=== PATIENT | female | born 1945 | race American Indian/Alaskan Native ===

== ENCOUNTER → 2016-09-14 | Outpatient (CLI) | payer MEDICARE | LOC: OD 12:09 | PROVIDERS: ATTEND Physician Assistant | DX: M25.552 Pain in left hip (principal); M25.511 Pain in right shoulder ==

== ENCOUNTER → 2016-09-17 | Outpatient (CLI) | payer MEDICARE, OTHER | LOC: RAD 14:09 | PROVIDERS: ATTEND Physician Assistant | DX: M96.1 Postlaminectomy syndrome, not elsewhere classified (principal) | CPT/HCPCS: 72131 ==

== ENCOUNTER 2016-11-05 02:46 | Inpatient (IN) | payer MEDICARE ==
[2016-11-05] MEDS ORDERED: NALOXONE HCL INJ 2 MG/2 ML DISP.SYRIN ONE ×5 (03:05→18:29)
[2016-11-05 03:38] LABS: ABSOLUTE BASOPHILS # (AUTO) 0.1 10^3/uL (0.0-0.2); ABSOLUTE LYMPHOCYTES (AUTO) 1.9 10^3/uL (0.5-4.7); ABSOLUTE MONOCYTES (AUTO) 1.4 10^3/uL (0.1-1.4); ABSOLUTE NEUT (AUTO) 10.6 10^3/uL (1.7-8.2); BASOPHILS % (AUTO) 0.7 % (0-2); EOSINOPHILS % (AUTO) 0.1 % (0-6); HEMATOCRIT 44.5 % (36.0-47.0); HEMOGLOBIN 14.1 g/dL (12.0-15.5); HGB HCT DIFFERENCE -2.2; LYMPHOCYTES % (AUTO) 13.5 % (13-45); MEAN CORPUSCULAR HEMOGLOBIN 27.9 pg (27.0-33.4); MEAN CORPUSCULAR HGB CONC 31.8 g/dL (32.0-36.0); MEAN CORPUSCULAR VOLUME 88 fl (80-97); MONOCYTES % (AUTO) 9.8 % (3-13); RED BLOOD COUNT 5.08 10^6/uL (3.72-5.28); RED CELL DISTRIBUTION WIDTH 14.5 % (11.5-14.0); SEGMENTED NEUTROPHILS % (AUTO) 75.9 % (42-78)
[2016-11-05 03:56] LABS: ALANINE AMINOTRANSFERASE 31 U/L (9-52); ALBUMIN 4.3 g/dL (3.5-5.0); ALKALINE PHOSPHATASE 87 U/L (38-126); ANION GAP 19 (5-19); ASPARTATE AMINO TRANSFERASE 104 U/L (14-36); BILIRUBIN,DIRECT 0.5 mg/dL (0.0-0.4); BILIRUBIN,TOTAL 0.6 mg/dL (0.2-1.3); BLOOD UREA NITROGEN 43 mg/dL (7-20); CALCIUM 9.1 mg/dL (8.4-10.2); CARBON DIOXIDE 25 mmol/L (22-30); CHLORIDE 98 mmol/L (98-107); CREATININE RESULT 2.46 mg/dL (0.52-1.25); GLUCOSE 116 mg/dL (75-110); LIPASE 185.1 U/L (23-300); POTASSIUM 3.6 mmol/L (3.6-5.0); SODIUM 141.8 mmol/L (137-145); TOTAL PROTEIN 7.4 g/dL (6.3-8.2)
[2016-11-05 04:21] LABS: AMORPHOUS SEDIMENT,URINE TRACE /HPF; APPEARANCE,URINE SLIGHTLY-CLOUDY; BILIRUBIN,URINE NEGATIVE (NEGATIVE); GLUCOSE, URINE NEGATIVE (NEGATIVE); KETONES,URINE NEGATIVE (NEGATIVE); LEUKOCYTE ESTERASE,URINE NEGATIVE (NEGATIVE); NITRITE,URINE NEGATIVE (NEGATIVE); PROTEIN,URINE 30 mg/dL (NEGATIVE); UROBILINOGEN,URINE NEGATIVE mg/dL (<2.0)
--- NOTE | 2016-11-05 05:35 | ER Document Report ---
ED General - General Time seen by provider: 02:50 Mode of Arrival: Medic Information source: Relative TRAVEL OUTSIDE OF THE [place] IN LAST 30 DAYS: No - HPI Onset: Other - see hpi note <PAPO WANG - Last Filed: 11/05/16 05:29> <COLLETTE HI - Last Filed: 11/10/16 21:12> - General Chief Complaint: Low Blood Pressure Stated Complaint: ABDOMINAL PAIN Notes: Patient is a 71-year-old female presenting to the emergency department for fecal incontinence, diarrhea, vomiting and somnolence. Patient states she ate dinner at 4 PM and has had diarrhea and vomiting right after. Patient is an pain management and patient's primary care physician is Dr. Garcia. Patient also complains of abdominal pain. Patient has her medications in the room. There is a bottle of Dilaudid that was filled 3 days ago; this bottle has 17 pills missing of 2 mg Dilaudid. This means that the patient has taken 34 mg of Dilaudid in the past 3 days. Patient is very somnolent and so the HPI is very limited. Patient is very hypotensive upon arrival. Patient is allergic to penicillin. (PAPO WANG) - Related Data Allergies/Adverse Reactions: Penicillins Allergy (Unknown, Verified 06/29/15 19:01) Rash Home Medications: Current Home Medications Clopidogrel Bisulfate [Plavix 75 mg Tablet] 75 mg PO DAILY 11/05/16 [History] Cyclobenzaprine HCl [Flexeril 5 mg Tablet] 5 mg PO QPM 11/05/16 [History] Furosemide [Lasix] 40 mg PO DAILY 11/05/16 [History] Gabapentin [Neurontin 300 mg Capsule] 300 mg PO TID 11/05/16 [History] Lisinopril/Hydrochlorothiazide [Zestoretic 10-12.5 mg Tablet] 1 tab PO DAILY [History] Omeprazole 20 mg PO DAILY 11/05/16 [History] Venlafaxine HCl ER [Effexor Xr 75 mg Cap.sr] 75 mg PO DAILY 11/05/16 [History] Venlafaxine HCl [Effexor Xr] 150 mg PO DAILY 11/05/16 [History] Past Medical History - General Information source: Patient - Social History Smoking Status: Current Every Day Smoker Chew tobacco use (# tins/day): No Frequency of alcohol use: None Drug Abuse: Prescription drugs Family History: None Patient has suicidal ideation: No Patient has homicidal ideation: No - Past Medical History Cardiac Medical History: Reports: Hx Hypertension Pulmonary Medical History: Reports: Hx COPD, Hx Pneumonia GI Medical History: Reports: Hx Gastroesophageal Reflux Disease Musculoskeltal Medical History: Reports Hx Arthritis Psychiatric Medical History: Reports: Hx Depression Past Surgical History: Reports: Hx Cholecystectomy, Hx Hysterectomy, Hx Neurologic Surgery - C-SPINE, Hx Orthopedic Surgery - L KNEE - Immunizations Hx Diphtheria, Pertussis, Tetanus Vaccination: Yes Hx Pneumococcal Vaccination: 08/09/11 <PAPO WANG - Last Filed: 11/05/16 05:29> Review of Systems - Review of Systems Constitutional: No symptoms reported EENT: No symptoms reported Cardiovascular: No symptoms reported Respiratory: No symptoms reported Gastrointestinal: See HPI, Abdominal pain, Diarrhea, Nausea, Vomiting Genitourinary: No symptoms reported Female Genitourinary: No symptoms reported Musculoskeletal: No symptoms reported Skin: No symptoms reported Hematologic/Lymphatic: No symptoms reported Neurological/Psychological: See HPI -: Yes All other systems reviewed and negative <PAPO WANG - Last Filed: 11/05/16 05:29> Physical Exam - Vital signs Interpretation: Hypotensive - General General appearance: Other - Patient is very somnolent In distress: Mild - HEENT Head: Normocephalic, Atraumatic Eyes: Normal Pupils: PERRL Mucous membranes: Dry - Respiratory Respiratory status: No respiratory distress Chest status: Nontender Breath sounds: Normal Chest palpation: Normal - Cardiovascular Rhythm: Regular Heart sounds: Normal auscultation Murmur: No - Abdominal Inspection: Normal Distension: No distension Bowel sounds: Normal Tenderness: Nontender Organomegaly: No organomegaly - Back Back: Normal, Nontender - Extremities General upper extremity: Normal inspection, Normal ROM, Normal strength General lower extremity: Normal inspection, Normal ROM, Normal strength - Neurological Neuro grossly intact: Yes Cognition: Normal Pep Coma Scale Eye Opening: Spontaneous Yolanda Coma Scale Verbal: Oriented Yolanda Coma Scale Motor: Obeys Commands Yolanda Coma Scale Total: 15 Speech: Normal - Psychological Associated symptoms: Normal affect, Normal mood - Skin Skin Temperature: Warm Skin Moisture: Dry <PAPO WANG - Last Filed: 11/05/16 05:29> <COLLETTE HI - Last Filed: 11/10/16 21:12> - Vital signs Vitals: Resp BP Pulse Ox 8 L 61/40 L 87 L 11/05/16 02:57 11/05/16 02:57 11/05/16 02:57 Course - Laboratory Result Diagrams: 11/05/16 03:12 11/05/16 03:12 <PAPO WANG - Last Filed: 11/05/16 05:29> - Laboratory Result Diagrams: 11/07/16 04:30 11/07/16 04:30 <COLLETTE HI - Last Filed: 11/10/16 21:12> - Re-evaluation Re-evalutation: 11/05/16 13:17 I personally performed the services described in the documentation, reviewed and edited the documentation which was dictated to my scribe in my presence, and it accurately records my words and actions. Patient says the emergency Department chief plain nausea vomiting diarrhea on examination the patient is sleepy pupils are pinpoint slightly short to arouse with decreased O2 sat. Gave her some Narcan she woke up immediately. They noticed that she is in pain management that she had taken several of her 2 mg Dilaudid tablets since they were filled 2-3 days ago. Blood pressure was initially elevated went down into the 90s treated her like sepsis bilateral pneumonia renal insufficiency pH is 7.2 blood cultures IV antibiotics patient is awake alert on Narcan drip blood pressure 98/elevated lactic acid Ford catheter placed additional liter of IV fluids. Spoke with the hospitalist who agreed to admit the patient to hospital on her service to the intensive care unit (COLLETTE HI) - Vital Signs Vital signs: Temp Pulse Resp BP Pulse Ox 98.7 F 88 20 113/73 95 11/07/16 09:55 11/07/16 09:55 11/07/16 09:55 11/07/16 09:55 11/07/16 09:55 - Laboratory Laboratory results interpreted by me: 11/05/16 11/05/16 11/05/16 03:12 03:12 03:12 WBC 14.0 H MCHC 31.8 L RDW 14.5 H Absolute Neutrophils 10.6 H Carbonic Acid ABG pH ABG pCO2 ABG pO2 ABG O2 Saturation BUN 43 H Creatinine 2.46 H Est GFR ( Amer) 23 L Est GFR (Non-Af Amer) 19 L Glucose 116 H Lactic Acid 2.8 H Direct Bilirubin 0.5 H AST 104 H Urine Protein Urine Blood 11/05/16 11/05/16 04:00 06:46 WBC MCHC RDW Absolute Neutrophils Carbonic Acid 1.73 H ABG pH 7.20 L* ABG pCO2 57.6 H ABG pO2 76.2 L ABG O2 Saturation 91.9 L BUN Creatinine Est GFR ( Amer) Est GFR (Non-Af Amer) Glucose Lactic Acid Direct Bilirubin AST Urine Protein 30 H Urine Blood LARGE H Critical Care Note - Critical Care Note Total time excluding time spent on procedures (mins): 60 <COLLETTE HI - Last Filed: 11/10/16 21:12> Discharge <PAPO WANG - Last Filed: 11/05/16 05:29> - Discharge Admitting Provider: Hospitalist Unit Admitted: ICU <COLLETTE HI - Last Filed: 11/10/16 21:12> - Discharge Clinical Impression: Sepsis due to pneumonia, altered mental status on Narcan drip, renal insufficiency Condition: Stable Disposition: HOME WITH HOME HEALTH SERVICES Scribe Documentation - Scribe Written by Scribe:: Papo Wang 11/05/16 5:35 acting as scribe for :: Gold <PAPO WANG - Last Filed: 11/05/16 05:29>
[2016-11-05 07:00] LABS: ARTERIAL BLOOD BASE EXCESS -6.8 mmol/L; ARTERIAL BLOOD O2 SATURATION 91.9 % (94-98)
[2016-11-05] MEDS ORDERED: NALOXONE HCL INJ 2 MG/2 ML DISP.SYRIN IV ONE ×4 (07:21→21:15)
[2016-11-05] MEDS ORDERED: NORMAL SALINE 1000 ML 1,000 ML IV ONE (08:36)
[2016-11-05] MEDS ORDERED: NORMAL SALINE 500 ML with NALOXONE HCL 2 MG IV PRN ×4 (08:49→14:03)
[2016-11-05] MEDS ORDERED: IPRATROPIUM/ALBUTEROL 0.5-2.5 MG/3 ML AMPUL NEB ONE (09:11)
[2016-11-05] MEDS ORDERED: CEFTRIAXONE INJ 1000 MG VIAL IV ONE (13:10)
[2016-11-05] MEDS ORDERED: VANCOMYCIN HCL INJ 1000 MG VIAL IV ONE (13:10)
[2016-11-05] MEDS ORDERED: ONDANSETRON 4 MG TAB.RAPDIS PO PRN (13:47)
[2016-11-05] MEDS ORDERED: ONDANSETRON HCL INJ/PF 4 MG/2 ML SDV IV PRN (13:47)
[2016-11-05] MEDS ORDERED: NORMAL SALINE 1000 ML 1,000 ML IV PRN (13:47)
[2016-11-05] MEDS ORDERED: ALBUTEROL SULFATE 0.083% NEB 2.5 MG/3 ML AMPUL NEB PRN (13:47)
--- NOTE | 2016-11-05 14:29 | PDOC H&P ---
History of Present Illness Admission Date/PCP: 11/05/16 13:31 DONNA JULIAN MD Patient complains of: Diarrhea History of Present Illness: JOSE ANGEL FINCH is a 71 year old female with a history of chronic pain and was restarted on Dilaudid 2 mg 2 days ago. The patient reports that over the last 2 days she's had worsening nausea vomiting and diarrhea. She denies any abdominal pain or fevers or chills. The patient has had difficulty tolerating any type of by mouth. She came in today as she was doing worse and did have some confusion. The patient was hypotensive when she presented and she was given Narcan and had improvement in her blood pressure. Patient since been started on Narcan drip and her blood pressure has been doing better. Because her symptoms a chest x-ray was obtained and does show her to have a right middle lobe probably aspiration pneumonia given her recent starting Dilaudid. Prior to being on Dilaudid she reports she was taking Percocet on daily basis. The patient also has had problems with some wheezing does have a history of COPD for which she is supposed to wear oxygen daily however she rarely wears her oxygen at home by her report. Patient denies having any chest pain. She does report having a cough. She has had diarrhea along with nausea and vomiting but denies having melena or bright red blood per rectum. Denies any hematemesis. She denies having any chest pain with this. She denies orthopnea or PND. She denies any recent antibiotic treatment. Past Medical History Cardiac Medical History: Reports: Hypertension Pulmonary Medical History: Reports: Chronic Obstructive Pulmonary Disease (COPD) , Pneumonia Endocrine Medical History: Reports: Hyperthyroidism Renal/ Medical History: Reports: Chronic Kidney Disease Malignancy Medical History: Reports: None GI Medical History: Reports: Gastroesophageal Reflux Disease Musculoskeltal Medical History: Reports: Arthritis Psychiatric Medical History: Reports: Depression Infectious Medical History: Reports: None Past Surgical History Past Surgical History: Reports: Cholecystectomy, Hysterectomy, Orthopedic Surgery - L KNEE Social History Information Source: Patient Lives with: Family Smoking Status: Current Every Day Smoker Frequency of Alcohol Use: None Hx Recreational Drug Use: No Drugs: None Hx Prescription Drug Abuse: No - Advance Directive Resuscitation Status: Do Not Resuscitate Surrogate healthcare decision maker:: Her son Cosmo Family History Family History: Mother in a motor vehicle accident. Her son has coronary artery disease. Father at age 83 from CVA. Parental Family History Reviewed: Yes Children Family History Reviewed: Yes Sibling(s) Family History Reviewed.: No Medication/Allergy Home Medications: Clopidogrel Bisulfate [Plavix 75 mg Tablet] 75 mg PO DAILY 11/05/16 Cyclobenzaprine HCl [Flexeril 5 mg Tablet] 5 mg PO QPM 11/05/16 Furosemide [Lasix] 40 mg PO DAILY 11/05/16 Gabapentin [Neurontin 300 mg Capsule] 300 mg PO TID 11/05/16 Hydrochlorothiazide [Hydrodiuril 25 mg Tablet] 25 mg PO DAILY 11/05/16 Hydromorphone HCl [Dilaudid 2 mg Tablet] 2 mg PO TIDP PRN 11/05/16 Lisinopril/Hydrochlorothiazide [Zestoretic 10-12.5 mg Tablet] 1 tab PO DAILY Methimazole [Northyx] 15 mg PO DAILY 11/05/16 Omeprazole 20 mg PO DAILY 11/05/16 Venlafaxine HCl ER [Effexor Xr 75 mg Cap.sr] 75 mg PO DAILY 11/05/16 Venlafaxine HCl [Effexor Xr] 150 mg PO DAILY 11/05/16 Allergies/Adverse Reactions: Penicillins Allergy (Unknown, Verified 06/29/15 19:01) Rash Review of Systems Constitutional: ABSENT: chills, fever(s), headache(s), weight gain, weight loss Eyes: ABSENT: visual disturbances Ears: ABSENT: hearing changes Cardiovascular: ABSENT: chest pain, dyspnea on exertion, edema, orthropnea, palpitations Respiratory: PRESENT: cough. ABSENT: dyspnea, hemoptysis Gastrointestinal: PRESENT: as per HPI Genitourinary: ABSENT: difficulty urinating, dysuria, hematuria Musculoskeletal: ABSENT: joint swelling Integumentary: ABSENT: rash, wounds Neurological: PRESENT: confusion - This improved with Narcan. Psychiatric: ABSENT: anxiety, depression Endocrine: ABSENT: cold intolerance, heat intolerance, polydipsia, polyuria Hematologic/Lymphatic: ABSENT: easy bleeding, easy bruising Physical Exam Vital Signs: Temp Pulse Resp BP Pulse Ox 97.6 F 97 11 L 99/55 L 96 11/05/16 08:34 11/05/16 08:34 11/05/16 08:48 11/05/16 08:48 11/05/16 08:48 General appearance: PRESENT: no acute distress Head exam: PRESENT: atraumatic, normocephalic Eye exam: PRESENT: conjunctiva pink, EOMI, PERRLA. ABSENT: scleral icterus Ear exam: PRESENT: normal external ear exam Mouth exam: PRESENT: moist, tongue midline Neck exam: ABSENT: carotid bruit, JVD, lymphadenopathy, thyromegaly Respiratory exam: PRESENT: rhonchi - Coarse rhonchi bilaterally.. ABSENT: rales , wheezes Cardiovascular exam: PRESENT: RRR. ABSENT: diastolic murmur, rubs, systolic murmur GI/Abdominal exam: PRESENT: normal bowel sounds, soft, tenderness - Mild lower tenderness. ABSENT: distended, guarding, mass, organolmegaly, rebound Rectal exam: PRESENT: heme (-) stool Extremities exam: ABSENT: calf tenderness, clubbing, pedal edema Neurological exam: PRESENT: alert, awake, oriented to person, oriented to place , oriented to time, oriented to situation, CN II-XII grossly intact. ABSENT: motor sensory deficit Psychiatric exam: PRESENT: appropriate affect Skin exam: PRESENT: dry, intact, warm. ABSENT: cyanosis, rash Results Impressions: Abdomen/Pelvis CT 11/05/16 06:10 IMPRESSION: No acute abnormality in the abdomen or pelvis. Chest X-Ray 11/05/16 06:16 IMPRESSION: Atelectasis or pneumonia in the middle lobe and right lower lobe. Clinical correlation is needed. Assessment & Plan - Diagnosis (1) Sepsis due to pneumonia Is this a current diagnosis for this admission?: YesPlan: Patient has right middle lobe pneumonia most likely secondary to aspiration. Will treat with Rocephin and Zithromax. Patient's hypotension could also be related to her underlying narcotic use as it is improved with Narcan. Patient will get blood cultures also. We'll also give IV fluids aggressively. (2) Chronic renal failure Qualifiers: Chronic kidney disease stage: stage 3 (moderate) Qualified Code(s): N18.3 - Chronic kidney disease, stage 3 (moderate) Is this a current diagnosis for this admission?: YesPlan: Patient has acute on chronic renal failure. We'll give IV fluids and monitor closely. (3) COPD (chronic obstructive pulmonary disease) Is this a current diagnosis for this admission?: YesPlan: Patient has no evidence for wheezing but does have pneumonia. We'll give nebulizers as needed. (4) Hypertension Is this a current diagnosis for this admission?: YesPlan: We will hold the hydrochlorothiazide/lisinopril for now. (5) Chronic back pain Is this a current diagnosis for this admission?: YesPlan: Patient had been on Dilaudid. We'll hold that given Narcan until she is more alert and awake. (6) Hyperthyroidism Is this a current diagnosis for this admission?: YesPlan: Patient has been on methimazole. Will check a TSH and T4. - Time Time Spent: 50 to 70 Minutes - Inpatient Certification Medical Necessity: Need For IV Fluids - Plan Summary Plan Summary: The patient reports she is a DO NOT RESUSCITATE. We will go ahead and admit to the unit so she can have close monitoring. We'll give BiPAP if need be for respiratory problems.
[2016-11-05] MEDS ORDERED: NORMAL SALINE 250 ML with NALOXONE HCL 2 MG IV PRN ×2 (18:47)
[2016-11-05] MEDS: AZITHROMYCIN 500 MG in DEXTROSE 5%-WATER 250 ML IV SCH (19:03)
[2016-11-05] MEDS: LANSOPRAZOLE 30 MG TAB.RAP.DR PO SCH (19:11)
[2016-11-05] MEDS: GABAPENTIN 300 MG CAPSULE PO SCH (20:29)
[2016-11-05] MEDS ORDERED: NORMAL SALINE 250 ML with NALOXONE HCL 4 MG IV PRN ×2 (22:00)
[2016-11-05 23:55] LABS: ANION GAP 9 (5-19); CALCIUM 8.5 mg/dL (8.4-10.2); CARBON DIOXIDE 27 mmol/L (22-30); CHLORIDE 103 mmol/L (98-107); CREATININE RESULT 0.88 mg/dL (0.52-1.25); GLUCOSE 114 mg/dL (75-110); MAGNESIUM 1.6 mg/dL (1.6-2.3); POTASSIUM 3.1 mmol/L (3.6-5.0); SODIUM 139.2 mmol/L (137-145)
[2016-11-06 00:14] LABS: BLOOD UREA NITROGEN 23 mg/dL (7-20)
[2016-11-06] MEDS: MAGNESIUM SULFATE/D5W 1 GM/100 ML RTUPB IV SCH ×2 (01:20→02:17)
[2016-11-06] MEDS: POTASSI CL 20 MEQ/50 ML RIDER 20 MEQ/50 ML RTUPB IV SCH ×2 (01:45→02:41)
[2016-11-06] MEDS: ACETAMINOPHEN 325 MG TABLET PO PRN ×2 (02:29→21:23)
[2016-11-06] MEDS: LANSOPRAZOLE 30 MG TAB.RAP.DR PO SCH ×2 (05:07→17:40)
[2016-11-06 06:57] LABS: HEMATOCRIT 40.7 % (36.0-47.0); HEMOGLOBIN 13.1 g/dL (12.0-15.5); HGB HCT DIFFERENCE -1.4; MEAN CORPUSCULAR HEMOGLOBIN 28.2 pg (27.0-33.4); MEAN CORPUSCULAR HGB CONC 32.1 g/dL (32.0-36.0); MEAN CORPUSCULAR VOLUME 88 fl (80-97); RED BLOOD COUNT 4.65 10^6/uL (3.72-5.28); RED CELL DISTRIBUTION WIDTH 14.8 % (11.5-14.0); WHITE BLOOD COUNT 10.7 10^3/uL (4.0-10.5)
[2016-11-06 07:14] LABS: ANION GAP 8 (5-19); BLOOD UREA NITROGEN 15 mg/dL (7-20); CARBON DIOXIDE 26 mmol/L (22-30); CHLORIDE 106 mmol/L (98-107); CREATININE RESULT 0.64 mg/dL (0.52-1.25); GLUCOSE 95 mg/dL (75-110); MAGNESIUM 2.2 mg/dL (1.6-2.3); POTASSIUM 3.7 mmol/L (3.6-5.0); SODIUM 139.9 mmol/L (137-145)
[2016-11-06 07:41] LABS: THYROID STIMULATING HORMONE 0.03 uIU/mL (0.47-4.68)
[2016-11-06] MEDS: ENOXAPARIN SODIUM INJ 30 MG/0.3 ML DISP.SYRIN SUBCUT SCH (07:58)
[2016-11-06] MEDS ORDERED: ENOXAPARIN SODIUM INJ 40 MG/0.4 ML DISP.SYRIN SUBCUT SCH (08:00)
[2016-11-06] MEDS: CLOPIDOGREL BISULFATE 75 MG TABLET PO SCH (09:44)
[2016-11-06] MEDS: VENLAFAXINE HCL 75 MG CAP.SR.24H PO SCH (09:44)
[2016-11-06] MEDS: GABAPENTIN 300 MG CAPSULE PO SCH ×2 (09:44→21:23)
[2016-11-06] MEDS: CEFTRIAXONE 1 GM/D5W RTU 50 ML IV SCH (09:45)
[2016-11-06] MEDS ORDERED: METHIMAZOLE PO SCH (10:00)
[2016-11-06] MEDS ORDERED: METHIMAZOLE 5 MG TABLET PO SCH (10:00)
--- NOTE | 2016-11-06 10:41 | PDOC PROGRESS REPORT ---
Subjective Progress Note for:: 11/06/16 Subjective:: she is more alert. She has been off of the Narcan drip since 11:00 PM yesterday evening. Physical Exam Vital Signs: Temp Pulse Resp BP Pulse Ox 99.8 F 81 12 134/59 H 95 11/06/16 08:00 11/06/16 08:00 11/06/16 10:08 11/06/16 10:08 11/06/16 10:08 Intake & Output 11/05/16 11/06/16 11/07/16 06:59 06:59 06:59 Intake Total 6284 Output Total 5400 250 Balance 884 -250 Weight 82.6 kg General appearance: PRESENT: no acute distress Eye exam: PRESENT: conjunctiva pink. ABSENT: scleral icterus Mouth exam: PRESENT: moist, tongue midline Neck exam: ABSENT: JVD Respiratory exam: PRESENT: rhonchi - Patient has bilateral coarse rhonchi.. ABSENT: rales, wheezes Cardiovascular exam: PRESENT: RRR. ABSENT: diastolic murmur, rubs, systolic murmur GI/Abdominal exam: PRESENT: normal bowel sounds, soft. ABSENT: distended, guarding, mass, organolmegaly, rebound, tenderness Extremities exam: ABSENT: calf tenderness, clubbing, pedal edema Neurological exam: PRESENT: alert, awake, oriented to person, oriented to place , oriented to time, oriented to situation, CN II-XII grossly intact. ABSENT: motor sensory deficit Psychiatric exam: PRESENT: appropriate affect Skin exam: PRESENT: dry, intact, warm. ABSENT: cyanosis, rash Results Laboratory Results: 11/06/16 06:33 11/06/16 06:33 11/05/16 11/06/16 11/06/16 23:36 06:33 06:33 WBC 10.7 H RBC 4.65 Hgb 13.1 Hct 40.7 MCV 88 MCH 28.2 MCHC 32.1 RDW 14.8 H Plt Count 162 Sodium 139.2 139.9 Potassium 3.1 L 3.7 Chloride 103 106 Carbon Dioxide 27 26 Anion Gap 9 8 BUN 23 H D 15 Creatinine 0.88 0.64 Est GFR ( Amer) > 60 > 60 Est GFR (Non-Af Amer) > 60 > 60 Glucose 114 H 95 Calcium 8.5 9.0 Magnesium 1.6 2.2 TSH Free T4 11/06/16 06:33 WBC RBC Hgb Hct MCV MCH MCHC RDW Plt Count Sodium Potassium Chloride Carbon Dioxide Anion Gap BUN Creatinine Est GFR ( Amer) Est GFR (Non-Af Amer) Glucose Calcium Magnesium TSH 0.03 L Free T4 0.63 L Impressions: Abdomen/Pelvis CT 11/05/16 06:10 IMPRESSION: No acute abnormality in the abdomen or pelvis. Chest X-Ray 11/05/16 06:16 IMPRESSION: Atelectasis or pneumonia in the middle lobe and right lower lobe. Clinical correlation is needed. Assessment & Plan - Diagnosis (1) Sepsis due to pneumonia Is this a current diagnosis for this admission?: YesPlan: Patient has right middle lobe pneumonia most likely secondary to aspiration. Will treat with Rocephin and Zithromax. The patient's hypotension has resolved and may have been related to the narcotic use. (2) Chronic renal failure Qualifiers: Chronic kidney disease stage: stage 3 (moderate) Qualified Code(s): N18.3 - Chronic kidney disease, stage 3 (moderate) Is this a current diagnosis for this admission?: YesPlan: Patient has acute on chronic renal failure. This has improved. We will DC the IV fluids that she is taking adequate amount and by mouth. (3) COPD (chronic obstructive pulmonary disease) Is this a current diagnosis for this admission?: YesPlan: Patient has no evidence for wheezing but does have pneumonia. We'll give nebulizers as needed. (4) Hypertension Is this a current diagnosis for this admission?: YesPlan: We will hold the hydrochlorothiazide/lisinopril for now. (5) Chronic back pain Is this a current diagnosis for this admission?: YesPlan: Patient had been on Dilaudid. She was on a Narcan drip until yesterday evening. Will restart back with oxycodone instead of Dilaudid for her pain. (6) Hyperthyroidism Is this a current diagnosis for this admission?: YesPlan: Patient has been on methimazole. TSH and T4 performed low. We will stop the methimazole and start on Synthroid. - Time Time Spent with patient: 25-34 minutes - Inpatient Certification Medical Necessity: Need Close Monitoring Due to Risk of Patient Decompensation - Plan Summary Plan Summary: She can be moved out of the ICU she is no longer requiring a Narcan drip.
[2016-11-06] MEDS ORDERED: LEVOTHYROXINE SODIUM 0.025 MG TABLET PO ONE (11:30)
[2016-11-06] MEDS: AZITHROMYCIN 500 MG in DEXTROSE 5%-WATER 250 ML IV SCH (17:39)
[2016-11-06] MEDS: OXYCODONE HCL IR 5 MG TABLET PO PRN (17:44)
[2016-11-07 04:48] LABS: ABSOLUTE BASOPHILS # (AUTO) 0.1 10^3/uL (0.0-0.2); ABSOLUTE EOSINOPHILS # (AUTO) 0.3 10^3/uL (0.0-0.6); ABSOLUTE LYMPHOCYTES (AUTO) 2.1 10^3/uL (0.5-4.7); ABSOLUTE NEUT (AUTO) 8.2 10^3/uL (1.7-8.2); BASOPHILS % (AUTO) 0.5 % (0-2); EOSINOPHILS % (AUTO) 2.6 % (0-6); HEMATOCRIT 37.6 % (36.0-47.0); HEMOGLOBIN 12.3 g/dL (12.0-15.5); HGB HCT DIFFERENCE -0.7; MEAN CORPUSCULAR HEMOGLOBIN 28.2 pg (27.0-33.4); MEAN CORPUSCULAR HGB CONC 32.6 g/dL (32.0-36.0); MEAN CORPUSCULAR VOLUME 86 fl (80-97); MONOCYTES % (AUTO) 8.7 % (3-13); RED BLOOD COUNT 4.35 10^6/uL (3.72-5.28); RED CELL DISTRIBUTION WIDTH 13.7 % (11.5-14.0); SEGMENTED NEUTROPHILS % (AUTO) 70.2 % (42-78); WHITE BLOOD COUNT 11.7 10^3/uL (4.0-10.5)
[2016-11-07 04:56] LABS: ANION GAP 9 (5-19); BLOOD UREA NITROGEN 8 mg/dL (7-20); CALCIUM 9.5 mg/dL (8.4-10.2); CARBON DIOXIDE 26 mmol/L (22-30); CHLORIDE 104 mmol/L (98-107); CREATININE RESULT 0.46 mg/dL (0.52-1.25); GLUCOSE 97 mg/dL (75-110); POTASSIUM 4.2 mmol/L (3.6-5.0); SODIUM 139.1 mmol/L (137-145)
[2016-11-07] MEDS: OXYCODONE HCL IR 5 MG TABLET PO PRN (06:14)
[2016-11-07] MEDS: LANSOPRAZOLE 30 MG TAB.RAP.DR PO SCH (06:14)
[2016-11-07] MEDS ORDERED: LEVOTHYROXINE SODIUM 0.025 MG TABLET PO SCH (10:00)
[2016-11-07 10:02] VITALS: BP 113/73
[2016-11-07] MEDS: GABAPENTIN 300 MG CAPSULE PO SCH (10:10)
[2016-11-07] MEDS: ENOXAPARIN SODIUM INJ 30 MG/0.3 ML DISP.SYRIN SUBCUT SCH (10:11)
[2016-11-07] MEDS: VENLAFAXINE HCL 75 MG CAP.SR.24H PO SCH (10:11)
[2016-11-07] MEDS: CEFTRIAXONE 1 GM/D5W RTU 50 ML IV SCH (10:11)
[2016-11-07] MEDS: CLOPIDOGREL BISULFATE 75 MG TABLET PO SCH (10:11)
--- NOTE | 2016-11-07 11:09 | PDOC DISCHARGE SUMMARY ---
General - Admit/Disc Date/PCP Admission Date/Primary Care Provider: 11/05/16 13:47 DONNA JULIAN MD Discharge Date: 11/07/16 - Discharge Diagnosis (1) Sepsis due to pneumonia Is this a current diagnosis for this admission?: YesSummary: Cultures are negative so far. (2) Chronic renal failure Is this a current diagnosis for this admission?: Yes (3) COPD (chronic obstructive pulmonary disease) Is this a current diagnosis for this admission?: Yes (4) Hypertension Is this a current diagnosis for this admission?: Yes (5) Chronic back pain Is this a current diagnosis for this admission?: YesSummary: The patient was on Dilaudid but required a Narcan drip because of excessive sedation and hypotension. The Dilaudid was stopped and she was restarted on oxycodone. (6) Hyperthyroidism Is this a current diagnosis for this admission?: YesSummary: The patient had been on methimazole when she presented. Her TSH and T4 both were low. Methimazole was stopped and she was started on Synthroid 25 g daily. - Additional Information Resuscitation Status: Do Not Resuscitate Discharge Diet: Cardiac Discharge Activity: Activity As Tolerated Home Medications: Clopidogrel Bisulfate [Plavix 75 mg Tablet] 75 mg PO DAILY 11/05/16 Cyclobenzaprine HCl [Flexeril 5 mg Tablet] 5 mg PO QPM 11/05/16 Furosemide [Lasix] 40 mg PO DAILY 11/05/16 Gabapentin [Neurontin 300 mg Capsule] 300 mg PO TID 11/05/16 Lisinopril/Hydrochlorothiazide [Zestoretic 10-12.5 mg Tablet] 1 tab PO DAILY Omeprazole 20 mg PO DAILY 11/05/16 Venlafaxine HCl ER [Effexor Xr 75 mg Cap.sr] 75 mg PO DAILY 11/05/16 Venlafaxine HCl [Effexor Xr] 150 mg PO DAILY 11/05/16 Cefuroxime Axetil [Ceftin 500 mg Tablet] 1 tab PO BID #20 tablet 11/07/16 Levothyroxine Sodium [Synthroid 0.025 mg Tablet] 0.025 mg PO DAILY #30 tablet Oxycodone HCl [Oxy-Ir 5 mg Tablet] 5 mg PO Q6HP PRN #20 tablet 11/07/16 History of Present Illness History of Present Illness: JOSE ANGEL FINCH is a 71 year old female with a history of chronic pain and was restarted on Dilaudid 2 mg 2 days ago. The patient reports that over the last 2 days she's had worsening nausea vomiting and diarrhea. She denies any abdominal pain or fevers or chills. The patient has had difficulty tolerating any type of by mouth. She came in today as she was doing worse and did have some confusion. The patient was hypotensive when she presented and she was given Narcan and had improvement in her blood pressure. Patient since been started on Narcan drip and her blood pressure has been doing better. Because her symptoms a chest x-ray was obtained and does show her to have a right middle lobe probably aspiration pneumonia given her recent starting Dilaudid. Prior to being on Dilaudid she reports she was taking Percocet on daily basis. The patient also has had problems with some wheezing does have a history of COPD for which she is supposed to wear oxygen daily however she rarely wears her oxygen at home by her report. Patient denies having any chest pain. She does report having a cough. She has had diarrhea along with nausea and vomiting but denies having melena or bright red blood per rectum. Denies any hematemesis. She denies having any chest pain with this. She denies orthopnea or PND. She denies any recent antibiotic treatment. Hospital Course Hospital Course: 71-year-old female who presented with watery diarrhea along with decreased responsiveness. The patient was also hypotensive consistent with sepsis versus medication effect. Patient was started on Narcan drip because of her history of using Dilaudid and her blood pressure and mental status improved. She was also noted to be dehydrated and was given IV fluids aggressively. Patient also was found to have a right middle lobe pneumonia and started on antibiotics. The patient was admitted to the intensive care unit because of the Narcan drip and after approximately 8 hours Narcan drip was DC'd. The patient was given Rocephin and Zithromax for the pneumonia. Patient also had watery diarrhea which most likely was related to viral gastroenteritis. Patient respiratory status improved and she had no longer had any hypotension. Patient was restarted on oxycodone for pain as it appears that Dilaudid is tolerated. She is back to her baseline and the decision made to discharge the patient home. Patient was instructed to call her pain clinic on Wednesday to inform them that she had been changed from Dilaudid to oxycodone and follow their recommendations regarding narcotics. Physical Exam Vital Signs: Temp Pulse Resp BP Pulse Ox 98.7 F 88 20 113/73 95 11/07/16 09:55 11/07/16 09:55 11/07/16 09:55 11/07/16 09:55 11/07/16 09:55 Intake & Output 11/06/16 11/07/16 11/08/16 06:59 06:59 06:59 Intake Total 6284 Output Total 5400 2600 Balance 884 -2600 Weight 82.6 kg 82.9 kg General appearance: PRESENT: no acute distress Eye exam: PRESENT: conjunctiva pink. ABSENT: scleral icterus Ear exam: PRESENT: normal external ear exam Mouth exam: PRESENT: moist, tongue midline Neck exam: ABSENT: JVD Respiratory exam: PRESENT: rhonchi - Coarse rhonchi bilaterally.. ABSENT: rales , wheezes Cardiovascular exam: PRESENT: RRR. ABSENT: diastolic murmur, rubs, systolic murmur GI/Abdominal exam: PRESENT: normal bowel sounds, soft. ABSENT: distended, guarding, mass, organolmegaly, rebound, tenderness Extremities exam: ABSENT: calf tenderness, clubbing, pedal edema Neurological exam: PRESENT: alert, awake, oriented to person, oriented to place , oriented to time, oriented to situation, CN II-XII grossly intact. ABSENT: motor sensory deficit Psychiatric exam: PRESENT: appropriate affect Skin exam: PRESENT: dry, intact, warm. ABSENT: cyanosis, rash Results Laboratory Results: 11/07/16 04:30 11/07/16 04:30 11/07/16 11/07/16 04:30 04:30 WBC 11.7 H RBC 4.35 Hgb 12.3 Hct 37.6 MCV 86 MCH 28.2 MCHC 32.6 RDW 13.7 Plt Count 149 L Seg Neutrophils % 70.2 Lymphocytes % 18.0 Monocytes % 8.7 Eosinophils % 2.6 Basophils % 0.5 Absolute Neutrophils 8.2 Absolute Lymphocytes 2.1 Absolute Monocytes 1.0 Absolute Eosinophils 0.3 Absolute Basophils 0.1 Sodium 139.1 Potassium 4.2 Chloride 104 Carbon Dioxide 26 Anion Gap 9 BUN 8 Creatinine 0.46 L Est GFR ( Amer) > 60 Est GFR (Non-Af Amer) > 60 Glucose 97 Calcium 9.5 Impressions: Abdomen/Pelvis CT 11/05/16 06:10 IMPRESSION: No acute abnormality in the abdomen or pelvis. Chest X-Ray 11/05/16 06:16 IMPRESSION: Atelectasis or pneumonia in the middle lobe and right lower lobe. Clinical correlation is needed. Qualifiers PATEINT BEING DISCHARGED WITH ANY OF THE FOLLOWING DIAGNOSIS?: No Plan Discharge Plan: Patient is discharged home in stable condition. She will contact the pain clinic on Wednesday in regards to her narcotic usage. She'll follow primary care in 2 weeks. Time Spent: Greater than 30 Minutes
== END 2016-11-07 11:00 | disposition home health service (06) | DRG 871 ==
LOC: ER 02:46 → EH 13:31 → UNDOADMIN 13:31 → EH 13:47 → ICU 16:20 → 4N 11-06 15:07
PROVIDERS: ADMIT Internal Medicine; ATTEND Internal Medicine
DX: A41.9 Sepsis, unspecified organism (principal); J69.0 Pneumonitis due to inhalation of food and vomit; G89.29 Other chronic pain; T40.2X1A Poisoning by other opioids, accidental (unintentional), initial encounter; I10 Essential (primary) hypertension; J44.9 Chronic obstructive pulmonary disease, unspecified; M19.90 Unspecified osteoarthritis, unspecified site; K21.9 Gastro-esophageal reflux disease without esophagitis; F32.9 Major depressive disorder, single episode, unspecified; E05.90 Thyrotoxicosis, unspecified without thyrotoxic crisis or storm; F17.200 Nicotine dependence, unspecified, uncomplicated; Z66 Do not resuscitate; A08.4 Viral intestinal infection, unspecified; I12.9 Hypertensive chronic kidney disease with stage 1 through stage 4 chronic kidney disease, or unspecified chronic kidney disease; N18.3 Chronic kidney disease, stage 3 (moderate); N28.9 Disorder of kidney and ureter, unspecified; M54.9 Dorsalgia, unspecified; Z99.81 Dependence on supplemental oxygen; E86.0 Dehydration; Z79.899 Other long term (current) drug therapy; Z88.0 Allergy status to penicillin; Z90.49 Acquired absence of other specified parts of digestive tract; Z90.710 Acquired absence of both cervix and uterus; Z79.891 Long term (current) use of opiate analgesic; Z82.3 Family history of stroke
CPT/HCPCS: 36415; 51701; 51702; 71020; 74176; 80048; 80053; 81001; 82803; 83605; 83690; 83735; 84439; 84443; 85025; 85027; 87040; 87086; 94640; 96361; 96365; 96366; 96376; 99291; J0456; J0696; J1650; J2310; J3370; J3475; J3480; J3490; J7030; J7050; J7060; J7620

== ENCOUNTER 2016-12-17 12:11 | Inpatient (IN) | payer MEDICARE ==
[2016-12-17] MEDS ORDERED: NORMAL SALINE 1000 ML 1,000 ML IV ONE (12:33)
[2016-12-17 13:14] LABS: ABSOLUTE BASOPHILS # (AUTO) 0.1 10^3/uL (0.0-0.2); ABSOLUTE EOSINOPHILS # (AUTO) 0.1 10^3/uL (0.0-0.6); ABSOLUTE LYMPHOCYTES (AUTO) 2.2 10^3/uL (0.5-4.7); ABSOLUTE NEUT (AUTO) 8.8 10^3/uL (1.7-8.2); BASOPHILS % (AUTO) 0.6 % (0-2); EOSINOPHILS % (AUTO) 0.5 % (0-6); HEMATOCRIT 42.8 % (36.0-47.0); HEMOGLOBIN 13.6 g/dL (12.0-15.5); LYMPHOCYTES % (AUTO) 17.8 % (13-45); MEAN CORPUSCULAR HEMOGLOBIN 27.4 pg (27.0-33.4); MEAN CORPUSCULAR HGB CONC 31.7 g/dL (32.0-36.0); MEAN CORPUSCULAR VOLUME 87 fl (80-97); MONOCYTES % (AUTO) 8.3 % (3-13); RED BLOOD COUNT 4.94 10^6/uL (3.72-5.28); RED CELL DISTRIBUTION WIDTH 14.8 % (11.5-14.0); SEGMENTED NEUTROPHILS % (AUTO) 72.8 % (42-78); WHITE BLOOD COUNT 12.1 10^3/uL (4.0-10.5)
[2016-12-17 13:15] LABS: ALANINE AMINOTRANSFERASE 20 U/L (9-52); ALBUMIN 4.2 g/dL (3.5-5.0); ALKALINE PHOSPHATASE 66 U/L (38-126); ANION GAP 16 (5-19); ASPARTATE AMINO TRANSFERASE 20 U/L (14-36); BILIRUBIN,DIRECT 0.5 mg/dL (0.0-0.4); BILIRUBIN,TOTAL 0.8 mg/dL (0.2-1.3); BLOOD UREA NITROGEN 24 mg/dL (7-20); CALCIUM 10.3 mg/dL (8.4-10.2); CARBON DIOXIDE 27 mmol/L (22-30); CHLORIDE 100 mmol/L (98-107); GLUCOSE 148 mg/dL (75-110); SODIUM 142.7 mmol/L (137-145); TOTAL PROTEIN 7.3 g/dL (6.3-8.2)
[2016-12-17 13:19] LABS: POTASSIUM 2.9 mmol/L (3.6-5.0)
[2016-12-17 13:27] LABS: CREATINE KINASE MB 2.38 ng/mL (<4.55); TROPONIN I 0.02 ng/mL
[2016-12-17] MEDS ORDERED: MORPHINE SULFATE 10 MG/ML INJ IV ONE (13:47)
--- NOTE | 2016-12-17 13:59 | ER Document Report ---
ED Fall - General Chief Complaint: Fall Injury Stated Complaint: FALL/RIGHT HIP PAIN Time Seen by Provider: 12/17/16 12:32 Notes: Patient was at the local [employer] office with her son and as he opened the door for her to enter, she fell landing on her right hip. He says that she falls occasionally. She did not trip. Her complaint is of right hip pain, although she was sitting in a chair when EMS arrived to pick the patient up. They put her in their unit and were transporting her when they describe her as becoming "lethargic" and "altered mentally". They did not give any pain medications for that reason. Questioning the son, patient has COPD and is on home oxygen. She won't take a portable tank with her when she leaves home. Today, her O2 sat was 90% when they left home. Patient apparently has no other injuries except to the right hip which is intermittently very painful to her and she calls out. She is somewhat confused on my initial examination. At times, she stares blankly ahead and doesn't respond. TRAVEL OUTSIDE OF THE [place] IN LAST 30 DAYS: No - Related data Allergies/Adverse Reactions: Penicillins Allergy (Unknown, Verified 06/29/15 19:01) Rash Past Medical History - Social History Smoking Status: Current Every Day Smoker Chew tobacco use (# tins/day): No Frequency of alcohol use: None Drug Abuse: None Family History: None, Reviewed & Not Pertinent Patient has suicidal ideation: No Patient has homicidal ideation: No - Past Medical History Cardiac Medical History: Reports: Hx Hypertension Pulmonary Medical History: Reports: Hx COPD, Hx Pneumonia - Admitted to [facility] about 3 months ago for pneumonia. Endocrine Medical History: Reports: Hx Hyperthyroidism GI Medical History: Reports: Hx Gastroesophageal Reflux Disease Musculoskeltal Medical History: Reports Hx Arthritis Psychiatric Medical History: Reports: Hx Depression Past Surgical History: Reports: Hx Cholecystectomy, Hx Hysterectomy, Hx Neurologic Surgery - C-SPINE, Hx Orthopedic Surgery - L KNEE - Immunizations Hx Diphtheria, Pertussis, Tetanus Vaccination: Yes Hx Pneumococcal Vaccination: 08/09/11 Review of Systems - Review of Systems Notes: REVIEW OF SYSTEMS: CONSTITUTIONAL : Denies fever. EENT: Denies eye, ear, nose or mouth or throat pain or other symptoms. CARDIOVASCULAR: Denies chest pain. RESPIRATORY: Denies cough, chest congestion, or shortness of breath. GASTROINTESTINAL: Denies abdominal pain or nausea, vomiting, or diarrhea. GENITOURINARY: Denies difficulty or painful urinating, urinary frequency, blood in urine. MUSCULOSKELETAL: Denies back or neck pain. See history of present illness. SKIN: Denies rash or skin lesions. NEUROLOGICAL: Patient seems confused and difficult to understand her speech at times. Son says that that's normal for her. At times he can't understand anything she says and at other times you can partially understand what she says. Moving all 4 extremities. ALL OTHER SYSTEMS REVIEWED AND NEGATIVE. -: Yes ROS unobtainable due to patient's medical condition Physical Exam - Vital signs Vitals: Temp Pulse BP Pulse Ox 97.9 F 92 94/67 L 88 L 12/17/16 12:32 12/17/16 12:32 12/17/16 12:32 12/17/16 12:32 Interpretation: Hypotensive, Hypoxic - Notes Notes: PHYSICAL EXAMINATION: GENERAL: Well-appearing, but rolling about on the stretcher intermittently complaining of pain. Blood pressure initially with systolics in the 90s and her O2 sat 88%. I held off on giving the patient pain medications because of that blood pressure. Normal saline 500 mL bolus ordered. HEAD: Atraumatic, normocephalic. NECK: Normal range of motion, supple. LUNGS: Breath sounds clear and equal bilaterally. No rib tenderness. O2 sat 88 %. HEART: Regular rate and rhythm without murmurs. Blood pressure with systolic in the 90s. ABDOMEN: Soft, nontender. No guarding or rebound. BACK: No tenderness throughout entire back. EXTREMITIES: Painful to touch the right hip or to move it in any position. Good pulse in the dorsal right foot. NEUROLOGICAL: Unable to walk. Patient's speech is garbled and difficult to understand at times. Son says that that is normal for her. Normal sensory, motor, and reflex exams. Cannot assess cranial nerves. PSYCH: Normal mood, normal affect. SKIN: Warm, dry, no rashes. Course - Re-evaluation Re-evalutation: 12/17/16 14:06 Spoke with the operating room and Dr. Trejo who requested admission to the hospitalist service and he will do surgery when approved. 12/17/16 14:10 Spoke with hospitalist on and patient will be admitted to [facility] for medical evaluation and clearance. - Vital Signs Vital signs: Temp Pulse Resp BP Pulse Ox 97.9 F 92 17 161/86 H 93 12/17/16 12:32 12/17/16 12:32 12/17/16 12:39 12/17/16 12:39 12/17/16 12:39 - Laboratory Result Diagrams: 12/17/16 12:45 12/17/16 12:45 Laboratory results interpreted by me: 12/17/16 12/17/16 12:45 12:45 WBC 12.1 H MCHC 31.7 L RDW 14.8 H Absolute Neutrophils 8.8 H Potassium 2.9 L* BUN 24 H Creatinine 2.20 H Est GFR ( Amer) 27 L Est GFR (Non-Af Amer) 22 L Glucose 148 H Calcium 10.3 H Direct Bilirubin 0.5 H - Diagnostic Test Radiology results interpreted by me: 12/17/16 14:05 X-ray reveals an intertrochanteric fracture of the right hip. - EKG Interpretation by Me EKG shows normal: Sinus rhythm Rate: Normal Rhythm: NSR Additional EKG results interpreted by me: 12/17/16 14:[address] T-wave changes Critical Care Note - Critical Care Note Total time excluding time spent on procedures (mins): 30 Discharge - Discharge Clinical Impression: Intertrochanteric fracture of right femur Qualifiers: Encounter type: initial encounter Fracture type: closed Qualified Code(s): S72.141A - Displaced intertrochanteric fracture of right femur, initial encounter for closed fracture Condition: Stable Disposition: ADMITTED INPATIENT Admitting Provider: Hospitalist Unit Admitted: IMCU Referrals: THAIS EDUARDO MD [Primary Care Provider] - Follow up as needed
[2016-12-17] MEDS ORDERED: POTASSIUM CHLORIDE 10 MEQ TABLET.SA PO ONE (14:14)
[2016-12-17] MEDS ORDERED: HALOPERIDOL LACTATE INJ 5 MG/1 ML VIAL IV ONE (15:43)
--- NOTE | 2016-12-17 16:24 | PDOC H&P ---
History of Present Illness Admission Date/PCP: 12/17/16 14:48 Dr. Garcia History of Present Illness: JOSE ANGEL FINCH is a 71 year old white female with a past medical history significant for tobacco abuse, COPD with home oxygen prescribed, and history of CVA who presents to the service after a fall. Patient [place] her [place] [facility] [place] he [place] door for her and the patient fell. As far as he could tell she did not trip over anything. She supposed to be walking with a walker but doesn't like this and uses a cane. She is also status post be wearing 3 L of oxygen continuously but doesn't like to wear. I. According to the son whenever she has a low oxygen saturation below 90% she gets confused. He also states that she has some sort of neurologic issue and difficulty with word finding or searching. Apparently she gets agitated when she can't remember what she wants to say. She has had a CT scan in the past and was told that she has "brain shrinkage "that will be normal for her age (I think the son is meaning atrophy). At baseline she is sometimes combative as well with her confusion. She has had episodes she has overused her medication. Because of this her son gives her only medicines that she needs for the day. Her son lives with her and his son as well as his sister. After the patient fell EMS was called and oxygen levels were found to be 90%. Upon arrival in the ED she was at 88% on room air. She was also found to have systolic blood pressure of 90. She was given a bolus of fluid and placed on oxygen. This brought her O2 sats up to 95% and her blood pressure up to the 100s. CT scan of the head has not yet been done. However films of her hip were taken and showed right intertrochanteric fracture. At the bedside the patient denies any chest pain or shortness of breath. She does admit to discomfort in her right leg. Past Medical History Cardiac Medical History: Reports: Hypertension Pulmonary Medical History: Reports: Chronic Obstructive Pulmonary Disease (COPD) , Pneumonia - Admitted to [facility] about 3 months ago for pneumonia. Neurological Medical History: Reports: Ischemic CVA Endocrine Medical History: Reports: Hyperthyroidism GI Medical History: Reports: Gastroesophageal Reflux Disease Musculoskeltal Medical History: Reports: Arthritis Psychiatric Medical History: Reports: Depression Past Surgical History Past Surgical History: Reports: Cholecystectomy, Hysterectomy, Orthopedic Surgery - L KNEE Social History Smoking Status: Current Every Day Smoker Frequency of Alcohol Use: None Hx Recreational Drug Use: No Drugs: None Hx Prescription Drug Abuse: No Family History Family History: None, Reviewed & Not Pertinent Parental Family History Reviewed: No - patient is currently confused and unable to obtain Children Family History Reviewed: Yes - Obtained from son Sibling(s) Family History Reviewed.: Yes - Obtained from son Medication/Allergy Allergies/Adverse Reactions: Penicillins Allergy (Unknown, Verified 06/29/15 19:01) Rash Review of Systems Review of Systems: Review of systems is positive for that already listed in the history of present illness in addition to that her son states that she has had some off and on diarrhea, complained of abdominal pain, and a general feeling of feeling bad. He also notes decreased appetite. He denies on her behalf that she's had any nausea, vomiting, fevers, chills, constipation, dizziness lightheadedness, weight changes, blood in the stool, blood in urine, going up blood, or coughing up blood. He admits that she has had changes in her speech. Apparently she's had a stroke in the past. She's had difficulty with word finding skills. He states that this is her baseline. Physical Exam Vital Signs: Temp Pulse Resp BP Pulse Ox 97.9 F 92 17 161/86 H 93 12/17/16 12:32 12/17/16 12:32 12/17/16 12:39 12/17/16 12:39 12/17/16 12:39 Physical exam: Gen.: This is a well-developed well-nourished appearing white female appearing agitated in bed. Patient is quite restless and is moving all over the place. HEENT normocephalic atraumatic. trachea is midline. Sclera are not icteric no. Coyne Rubia rings. No lymphadenopathy. No thyromegaly. Heart: Regular rate and rhythm no murmurs rubs or gallops. On telemetry she has occasional PVCs. Lungs: Coarse breath sounds at the bases bilaterally. He has equal rise and fall of the chest. She is currently on oxygen at 2 L and satting 88%. Abdomen: Soft nontender nondistended. Extremities: No clubbing cyanosis or edema. Right leg is shorter than the left and outwardly rotated. 1+ pulses bilaterally. Strength not tested in the lower extremities on the right side. On the left side she has 5 out of 5 strength in his moving her leg in every direction. She has full range of motion. Strength is 5 out of 5 in the upper extremities. This is based on again her moving everywhere. Neuro: Awake alert. Not oriented. The patient thinks is 1991. She can't tell me who the president is. In response to this question she tells me 1991. In response to the question about where she is she tells me 1992. Cranial nerves cannot be fully assessed due to lack of complete cooperation. Results Impressions: Hip/Pelvis X-Ray 12/17/16 00:00 IMPRESSION: Acute right intertrochanteric fracture with varus angulation and medial displacement of the lesser trochanter fragment Chest X-Ray 12/17/16 14:17 IMPRESSION: Minimal right basilar atelectasis Assessment & Plan - Diagnosis (1) Intertrochanteric fracture of right femur Qualifiers: Encounter type: initial encounter Fracture type: closed Qualified Code(s): S72.141A - Displaced intertrochanteric fracture of right femur, initial encounter for closed fracture Plan: Consult orthopedic surgery. Management as per them. Pain control. When necessary Percocet will be available. (2) Hypokalemia Plan: This is been replaced already done in the ED. we will need to repeat her labs in the morning. (3) Leukocytosis Plan: Possibly secondary to her underlying fracture. However, given her behavior at the bedside after question is there is another underlying infection that could account for her leukocytosis and her current mental state. Will check urinalysis and urine culture. Chest x-ray shows atelectasis. (5) COPD (chronic obstructive pulmonary disease) Plan: COPD without acute exacerbation. Will have scheduled nebs every 6. We'll need to verify home medications. Continue oxygen. Apparently she supposed to be on it continuously but has not followed these recommendations. (6) Hypertension Plan: Continue home medications once we know what they are. For now when necessary hydralazine will be available. (7) Hyperthyroidism Plan: Check TSH. (8) Altered mental status Plan: Recently secondary to underlying infection. She does have an elevated white blood cell count. She also has an underlying history of stroke and difficulty with word finding which is her baseline. CT scan of the head is pending. Ammonia level is pending. Will order UDS and alcohol level. Check vitamin B12. Check ABG. - Time Time Spent: 50 to 70 Minutes - Inpatient Certification Medical Necessity: Need Close Monitoring Due to Risk of Patient Decompensation
[2016-12-17 16:28] LABS: AMORPHOUS SEDIMENT,URINE TRACE /HPF; APPEARANCE,URINE SLIGHTLY-CLOUDY; BILIRUBIN,URINE NEGATIVE (NEGATIVE); GLUCOSE, URINE NEGATIVE (NEGATIVE); KETONES,URINE NEGATIVE (NEGATIVE); LEUKOCYTE ESTERASE,URINE NEGATIVE (NEGATIVE); NITRITE,URINE NEGATIVE (NEGATIVE); PROTEIN,URINE 100 mg/dL (NEGATIVE); URINE SPECIFIC GRAVITY 1.028; UROBILINOGEN,URINE NEGATIVE mg/dL (<2.0)
[2016-12-17] MEDS: OXYCODONE-ACETAMINOPHEN 5-325 MG TABLET PO PRN ×2 (16:32→23:16)
[2016-12-17] MEDS: POTASSI CL 20 MEQ/1/2NS 1L 1,000 ML IV PRN ×2 (16:32→23:18)
[2016-12-17 17:00] LABS: URINE METHADONE SCREEN NEGATIVE; URINE OPIATES LOW NEGATIVE; URINE PHENCYCLIDINE SCREEN NEGATIVE
[2016-12-17 17:03] LABS: URINE BARBITURATES SCREEN NEGATIVE
[2016-12-17] MEDS ORDERED: HALOPERIDOL LACTATE INJ 5 MG/1 ML VIAL ONE (18:10)
[2016-12-17] MEDS: IPRATROPIUM/ALBUTEROL 0.5-2.5 MG/3 ML AMPUL NEB SCH (20:57)
[2016-12-17] MEDS: HEPARIN SOD (PORCINE) 5,000 UNIT/ML 1 ML SYRINGE SUBCUT SCH (23:17)
[2016-12-17] MEDS: LORAZEPAM INJ 2 MG/1 ML VIAL IV PRN (23:18)
[2016-12-18] MEDS: MAGNESIUM SULFATE/D5W 1 GM/100 ML RTUPB IV SCH ×2 (01:03→02:07)
[2016-12-18] MEDS: HALOPERIDOL LACTATE INJ 5 MG/1 ML VIAL IV PRN (01:12)
[2016-12-18] MEDS: IPRATROPIUM/ALBUTEROL 0.5-2.5 MG/3 ML AMPUL NEB SCH ×4 (02:16→20:34)
[2016-12-18] MEDS ORDERED: MORPHINE SULFATE 10 MG/ML INJ ONE (03:04)
[2016-12-18] MEDS ORDERED: MORPHINE SULFATE 10 MG/ML INJ IV ONE (03:15)
[2016-12-18 05:53] LABS: ABSOLUTE LYMPHOCYTES (AUTO) 1.2 10^3/uL (0.5-4.7); ABSOLUTE MONOCYTES (AUTO) 1.3 10^3/uL (0.1-1.4); ABSOLUTE NEUT (AUTO) 8.5 10^3/uL (1.7-8.2); BASOPHILS % (AUTO) 0.2 % (0-2); HEMATOCRIT 35.9 % (36.0-47.0); HEMOGLOBIN 11.9 g/dL (12.0-15.5); HGB HCT DIFFERENCE -0.2; LYMPHOCYTES % (AUTO) 10.7 % (13-45); MEAN CORPUSCULAR HEMOGLOBIN 27.8 pg (27.0-33.4); MEAN CORPUSCULAR HGB CONC 33.1 g/dL (32.0-36.0); MEAN CORPUSCULAR VOLUME 84 fl (80-97); MONOCYTES % (AUTO) 11.7 % (3-13); RED BLOOD COUNT 4.27 10^6/uL (3.72-5.28); RED CELL DISTRIBUTION WIDTH 14.3 % (11.5-14.0); SEGMENTED NEUTROPHILS % (AUTO) 77.4 % (42-78); WHITE BLOOD COUNT 10.9 10^3/uL (4.0-10.5)
[2016-12-18 06:19] LABS: ANION GAP 12 (5-19); BLOOD UREA NITROGEN 26 mg/dL (7-20); CALCIUM 9.9 mg/dL (8.4-10.2); CARBON DIOXIDE 26 mmol/L (22-30); CHLORIDE 106 mmol/L (98-107); CREATININE RESULT 1.07 mg/dL (0.52-1.25); GLUCOSE 149 mg/dL (75-110); SODIUM 143.9 mmol/L (137-145)
[2016-12-18 07:05] LABS: MAGNESIUM 2.2 mg/dL (1.6-2.3)
[2016-12-18 07:06] LABS: POTASSIUM 2.9 mmol/L (3.6-5.0)
[2016-12-18] MEDS ORDERED: POTASSI CL 20 MEQ/50 ML RIDER 20 MEQ/50 ML RTUPB IV ONE (07:45)
[2016-12-18] MEDS: POTASSI CL 20 MEQ/50 ML RIDER 20 MEQ/50 ML RTUPB IV SCH ×2 (08:14→10:23)
[2016-12-18] MEDS: HEPARIN SOD (PORCINE) 5,000 UNIT/ML 1 ML SYRINGE SUBCUT SCH (08:14)
[2016-12-18] MEDS: MORPHINE SULFATE 10 MG/ML INJ IV PRN ×2 (08:43→18:41)
[2016-12-18] MEDS ORDERED: GLUCAGON,HUMAN RECOMB 1 MG INJ SUBCUT PRN (09:14)
[2016-12-18] MEDS ORDERED: DEXTROSE 40% GEL 15 GM TUBE PO PRN ×2 (09:14)
[2016-12-18] MEDS ORDERED: DEXTROSE 50%-WATER 25 GM/50 ML DISP.SYRIN IV PRN ×2 (09:14)
--- NOTE | 2016-12-18 11:43 | EKG REPORT ---
SEVERITY:- NORMAL ECG - SINUS RHYTHM Nonspecific ST segment depression and T wave inversion lateral precordial leads : Confirmed by: Deep Tello 18-Dec-2016 11:43:14
[2016-12-18] MEDS: POTASSI CL 20 MEQ/1/2NS 1L 1,000 ML IV PRN ×2 (12:22→23:28)
--- NOTE | 2016-12-18 14:13 | PDOC PROGRESS REPORT ---
Subjective Progress Note for:: 12/18/16 Subjective:: This a follow-up visit for right hip fracture. Patient was seen this morning her son was in the room at the bedside. She required another dose of Ativan overnight. Currently at the bedside she is quite calm. She does not speak. She does awake out of her name does not converse. I have gone through the patient's medicine bottles. Son tells me that her last dose of narcotic medication was 3 months ago. He says that her primary care physician stopped writing for them. As he knows she is not taken any one else's medication. He also states that she does not consume any alcohol. Occasionally she uses marijuana. Physical Exam Vital Signs: Temp Pulse Resp BP Pulse Ox 97.4 F 117 H 18 134/64 H 90 L 12/18/16 07:19 12/18/16 08:59 12/18/16 08:59 12/18/16 07:19 12/18/16 08:59 Intake & Output 12/17/16 12/18/16 12/19/16 06:59 06:59 06:59 Intake Total 651 Output Total 325 Balance 326 Weight 73.6 kg Physical exam: Gen.: This is a well-developed well-nourished appearing white female appearing calm Heart: Tachycardic at the bedside. No murmurs rubs or gallops.. Lungs: Slightly coarse anteriorly. SHe has equal rise and fall of the chest. She is currently on oxygen at 2 L and satting 90%. Abdomen: Soft nontender nondistended. Extremities: No clubbing cyanosis or edema. Right leg is shorter than the left and outwardly rotated. 1+ pulses bilaterally. Neuro: Awake. falls back to sleep easily. She does not converse. She cannot cooperate for full neurologic assessment. Results Laboratory Results: 12/18/16 05:30 12/18/16 05:30 12/18/16 12/18/16 12/18/16 05:30 05:30 05:30 WBC 10.9 H RBC 4.27 Hgb 11.9 L Hct 35.9 L MCV 84 MCH 27.8 MCHC 33.1 RDW 14.3 H Plt Count 174 Seg Neutrophils % 77.4 Lymphocytes % 10.7 L Monocytes % 11.7 Eosinophils % 0.0 Basophils % 0.2 Absolute Neutrophils 8.5 H Absolute Lymphocytes 1.2 Absolute Monocytes 1.3 Absolute Eosinophils 0.0 Absolute Basophils 0.0 Sodium 143.9 Potassium 2.9 L* Chloride 106 Carbon Dioxide 26 Anion Gap 12 BUN 26 H Creatinine 1.07 Est GFR ( Amer) > 60 Est GFR (Non-Af Amer) 50 L Glucose 149 H Calcium 9.9 Magnesium 2.2 D Ammonia 9.3 Vitamin B12 355.0 TSH 12/18/16 05:30 WBC RBC Hgb Hct MCV MCH MCHC RDW Plt Count Seg Neutrophils % Lymphocytes % Monocytes % Eosinophils % Basophils % Absolute Neutrophils Absolute Lymphocytes Absolute Monocytes Absolute Eosinophils Absolute Basophils Sodium Potassium Chloride Carbon Dioxide Anion Gap BUN Creatinine Est GFR ( Amer) Est GFR (Non-Af Amer) Glucose Calcium Magnesium Ammonia Vitamin B12 TSH < 0.02 L Impressions: Hip/Pelvis X-Ray 12/17/16 00:00 IMPRESSION: Acute right intertrochanteric fracture with varus angulation and medial displacement of the lesser trochanter fragment Head CT 12/17/16 14:12 IMPRESSION: CHRONIC CHANGES OF ATROPHY AND MICROVASCULAR ISCHEMIA. NO ACUTE PROCESS. Chest X-Ray 12/17/16 14:17 IMPRESSION: Minimal right basilar atelectasis Assessment & Plan - Diagnosis (1) Intertrochanteric fracture of right femur Qualifiers: Encounter type: initial encounter Fracture type: closed Qualified Code(s): S72.141A - Displaced intertrochanteric fracture of right femur, initial encounter for closed fracture Plan: Consult orthopedic surgery. Management as per them. Pain control. When necessary Percocet will be available. Patient will go to the OR tomorrow. (2) Hypokalemia Plan: Replaced again this morning. Repeat K 1 hour after all riders her in.. (3) Leukocytosis Plan: Possibly secondary to her underlying fracture. It is resolved. (4) Fall Plan: Continue follow-up precautions. (5) COPD (chronic obstructive pulmonary disease) Plan: COPD without acute exacerbation. Will have scheduled nebs every 6. I do not see any inhalers in the patient's home medications. Begin Spiriva. Continue oxygen. Apparently she supposed to be on it continuously but has not followed these recommendations. (6) Hypertension Plan: When necessary hydralazine. I do not see any antihypertensives in her bottles of medication. (7) Hyperthyroidism Plan: TSH is less than 0.1. The T3-T4. (8) Altered mental status Plan: ABG was not able to be obtained yesterday secondary to safety reasons. UDS shows no opioids in her urine. Alcohol level was negligible. Supposedly her last dose of opioid was 3 months ago. His be consistent with findings in her urine drug screen. As far as her son know she has not been taking anyone else' s medications. Patient's thyroid panel is abnormal. Once her hip is fixed and all of these variables are corrected we will be able to fully assess her. Still confused has underlying dementia. CT scan of the head showed no acute findings. - Time Time Spent with patient: 25-34 minutes Anticipated discharge: SNF - Inpatient Certification Medical Necessity: Need Close Monitoring Due to Risk of Patient Decompensation
[2016-12-18 14:20] LABS: ALANINE AMINOTRANSFERASE 26 U/L (9-52); ALBUMIN 3.6 g/dL (3.5-5.0); ALKALINE PHOSPHATASE 55 U/L (38-126); ANION GAP 12 (5-19); ASPARTATE AMINO TRANSFERASE 26 U/L (14-36); BILIRUBIN,DIRECT 0.3 mg/dL (0.0-0.4); BLOOD UREA NITROGEN 23 mg/dL (7-20); CALCIUM 9.6 mg/dL (8.4-10.2); CARBON DIOXIDE 26 mmol/L (22-30); CHLORIDE 107 mmol/L (98-107); CREATININE RESULT 0.77 mg/dL (0.52-1.25); GLUCOSE 143 mg/dL (75-110); POTASSIUM 3.7 mmol/L (3.6-5.0); SODIUM 145.3 mmol/L (137-145); TOTAL PROTEIN 6.1 g/dL (6.3-8.2)
[2016-12-18] MEDS: LORAZEPAM INJ 2 MG/1 ML VIAL IV PRN ×2 (14:37→21:47)
[2016-12-19] MEDS: IPRATROPIUM/ALBUTEROL 0.5-2.5 MG/3 ML AMPUL NEB SCH ×4 (02:19→20:47)
[2016-12-19] MEDS: HALOPERIDOL LACTATE INJ 5 MG/1 ML VIAL IV PRN (03:13)
[2016-12-19 04:49] LABS: ABSOLUTE BASOPHILS # (AUTO) 0.1 10^3/uL (0.0-0.2); ABSOLUTE LYMPHOCYTES (AUTO) 1.1 10^3/uL (0.5-4.7); ABSOLUTE MONOCYTES (AUTO) 1.2 10^3/uL (0.1-1.4); ABSOLUTE NEUT (AUTO) 8.9 10^3/uL (1.7-8.2); BASOPHILS % (AUTO) 0.4 % (0-2); EOSINOPHILS % (AUTO) 0.2 % (0-6); HEMATOCRIT 32.5 % (36.0-47.0); HEMOGLOBIN 10.5 g/dL (12.0-15.5); LYMPHOCYTES % (AUTO) 9.8 % (13-45); MEAN CORPUSCULAR HGB CONC 32.4 g/dL (32.0-36.0); MEAN CORPUSCULAR VOLUME 86 fl (80-97); MONOCYTES % (AUTO) 10.4 % (3-13); RED BLOOD COUNT 3.76 10^6/uL (3.72-5.28); RED CELL DISTRIBUTION WIDTH 14.8 % (11.5-14.0); SEGMENTED NEUTROPHILS % (AUTO) 79.2 % (42-78); WHITE BLOOD COUNT 11.3 10^3/uL (4.0-10.5)
[2016-12-19 05:32] LABS: FREE T3 5.15 pg/mL (2.77-5.27)
[2016-12-19 05:34] LABS: ANION GAP 12 (5-19); BLOOD UREA NITROGEN 20 mg/dL (7-20); CALCIUM 9.5 mg/dL (8.4-10.2); CARBON DIOXIDE 25 mmol/L (22-30); CHLORIDE 109 mmol/L (98-107); CREATININE RESULT 0.62 mg/dL (0.52-1.25); GLUCOSE 131 mg/dL (75-110); MAGNESIUM 1.8 mg/dL (1.6-2.3); POTASSIUM 3.8 mmol/L (3.6-5.0); SODIUM 145.8 mmol/L (137-145)
[2016-12-19] MEDS: LORAZEPAM INJ 2 MG/1 ML VIAL IV PRN ×2 (08:21→20:37)
[2016-12-19] MEDS: MORPHINE SULFATE 10 MG/ML INJ IV PRN ×2 (08:21→19:47)
[2016-12-19] MEDS ORDERED: MIDAZOLAM 2 MG/2 ML INJ ONE (08:49)
[2016-12-19] MEDS ORDERED: FENTANYL CITRATE INJ/PF 100 MCG/2 ML AMPUL ONE ×2 (08:49)
[2016-12-19] MEDS ORDERED: MORPHINE SULFATE 10 MG/ML INJ ONE (08:50)
[2016-12-19] MEDS ORDERED: IBUPROFEN INJ 800 MG/8 ML VIAL IV ONE (08:50)
[2016-12-19] MEDS ORDERED: PROPOFOL INJ 200 MG/20 ML VIAL IV ONE (08:50)
[2016-12-19] MEDS ORDERED: CEFAZOLIN INJ 1 GM VIAL ONE (10:18)
[2016-12-19] MEDS ORDERED: FENTANYL CITRATE INJ/PF 100 MCG/2 ML AMPUL IV PRN ×3 (11:03)
[2016-12-19] MEDS ORDERED: DIPHENHYDRAMINE HCL 50 MG/ML VIAL IV PRN (11:03)
--- NOTE | 2016-12-19 12:20 | PDOC CONSULTATION ---
Consultation Consult Date: 12/18/16 Consult reason:: Right intertrochanteric hip fracture History of Present Illness Admission Date/PCP: 12/17/16 15:45 THAIS EDUARDO MD Patient complains of: Right hip pain History of Present Illness: 71-year-old female status post fall onto the right side. Immediately had pain and difficulty getting up. Patient was brought by EMS then treated. X-rays show the patient had a right intertrochanteric hip fracture. Patient complains of right hip pain. Denies any numbness or tingling. Denies any other extremity injuries. Story was provided by family and nursing due to patient's dementia. She is tender on the lateral anterior aspect of the hip. She seems to be in 10 out 10 pain when attempted moving of the hip. She has obvious deformity of the right hip with shortening and external rotation of the leg. She is wiggling her toes. She previously ambulated with assistance and walker. Past Medical History Cardiac Medical History: Reports: Hypertension Pulmonary Medical History: Reports: Chronic Obstructive Pulmonary Disease (COPD) , Pneumonia - Ad[facility] to [facility] about 3 months ago for pneumonia. Neurological Medical History: Reports: Ischemic CVA Endocrine Medical History: Reports: Hyperthyroidism GI Medical History: Reports: Gastroesophageal Reflux Disease Musculoskeltal Medical History: Reports: Arthritis Psychiatric Medical History: Reports: Depression Past Surgical History Past Surgical History: Reports: Cholecystectomy, Hysterectomy, Orthopedic Surgery - L KNEE Social History Smoking Status: Current Every Day Smoker Cigarettes Packs Per Day: 2 Number of Years Smokin Last Time Smoked: 12/17/16 Frequency of Alcohol Use: Rare Hx Recreational Drug Use: Yes Drugs: Marijuana Hx Prescription Drug Abuse: No - Advance Directive Resuscitation Status: Full Code Family History Family History: None, Reviewed & Not Pertinent Parental Family History Reviewed: No Children Family History Reviewed: No Sibling(s) Family History Reviewed.: No Medication/Allergy Home Medications: Baclofen [Baclofen 10 mg Tablet] 10 mg PO TIDP PRN 12/17/16 Cefuroxime Axetil [Ceftin 500 mg Tablet] 1 tab PO BID 12/17/16 Cyclobenzaprine HCl [Flexeril 5 mg Tablet] 5 mg PO QHS 12/17/16 Hydrocodone/Acetaminophen [[place] 7.5-325 mg Tablet] 1 tab PO BIDP PRN 12/17/16 Hydromorphone HCl [Dilaudid 2 mg Tablet] 2 mg PO Q8HP PRN 12/17/16 Lidocaine [Lidoderm 5% (700 mg) Transdermal Patch] 1 patch TP DAILY 12/17/16 Lisinopril [Prinivil 2.5 mg Tablet] 2.5 mg PO QAM 12/17/16 Oxycodone HCl [Oxy-Ir 5 mg Tablet] 5 mg PO Q6HP PRN 12/17/16 Clopidogrel Bisulfate [Plavix 75 mg Tablet] 75 mg PO DAILY 12/18/16 Furosemide [Lasix] 40 mg PO DAILY 12/18/16 Gabapentin 100 mg PO QHS 12/18/16 Omeprazole 20 mg PO DAILY 12/18/16 Venlafaxine HCl ER [Effexor Xr 75 mg Cap.sr] 75 mg PO DAILY 12/18/16 Allergies/Adverse Reactions: Penicillins Allergy (Unknown, Verified 06/29/15 19:01) Rash Review of Systems ROS unobtainable: Due to mental status Physical Exam Vital Signs: Temp Pulse Resp BP Pulse Ox 37.0 C 117 H 16 121/69 97 12/19/16 08:57 12/19/16 08:57 12/19/16 08:57 12/19/16 08:57 12/19/16 08:57 Intake & Output 12/18/16 12/19/16 12/20/16 06:59 06:59 06:59 Intake Total 651 2359 Output Total 325 875 Balance 326 1484 Weight 73.6 kg 80.1 kg General appearance: PRESENT: no acute distress, well-nourished Head exam: PRESENT: atraumatic Adult Front & Back Image: 1 - Sure and externally rotated right lower extremity. Tender to palpation over the groin and lateral aspect of the hip. I'll deformity of the hip. Skin is intact. She will a toes to stimuli and has good capillary refill distally. Results Laboratory Results: 12/19/16 04:11 12/19/16 04:11 12/18/16 12/19/16 12/19/16 13:43 04:11 04:11 WBC 11.3 H RBC 3.76 Hgb 10.5 L Hct 32.5 L MCV 86 MCH 28.0 MCHC 32.4 RDW 14.8 H Plt Count 144 L Seg Neutrophils % 79.2 H Lymphocytes % 9.8 L Monocytes % 10.4 Eosinophils % 0.2 Basophils % 0.4 Absolute Neutrophils 8.9 H Absolute Lymphocytes 1.1 Absolute Monocytes 1.2 Absolute Eosinophils 0.0 Absolute Basophils 0.1 Sodium 145.3 H 145.8 H Potassium 3.7 3.8 Chloride 107 109 H Carbon Dioxide 26 25 Anion Gap 12 12 BUN 23 H 20 Creatinine 0.77 0.62 Est GFR ( Amer) > 60 > 60 Est GFR (Non-Af Amer) > 60 > 60 Glucose 143 H 131 H Calcium 9.6 9.5 Magnesium 2.0 1.8 Total Bilirubin 1.0 AST 26 ALT 26 Alkaline Phosphatase 55 Total Protein 6.1 L Albumin 3.6 Free T4 Free T3 pg/mL 12/19/16 04:11 WBC RBC Hgb Hct MCV MCH MCHC RDW Plt Count Seg Neutrophils % Lymphocytes % Monocytes % Eosinophils % Basophils % Absolute Neutrophils Absolute Lymphocytes Absolute Monocytes Absolute Eosinophils Absolute Basophils Sodium Potassium Chloride Carbon Dioxide Anion Gap BUN Creatinine Est GFR ( Amer) Est GFR (Non-Af Amer) Glucose Calcium Magnesium Total Bilirubin AST ALT Alkaline Phosphatase Total Protein Albumin Free T4 1.52 Free T3 pg/mL 5.15 Impressions: Hip/Pelvis X-Ray 12/17/16 00:00 IMPRESSION: Acute right intertrochanteric fracture with varus angulation and medial displacement of the lesser trochanter fragment Head CT 12/17/16 14:12 IMPRESSION: CHRONIC CHANGES OF ATROPHY AND MICROVASCULAR ISCHEMIA. NO ACUTE PROCESS. Chest X-Ray 12/17/16 14:17 IMPRESSION: Minimal right basilar atelectasis Status: Image reviewed by me Assessment & Plan - Diagnosis (1) Intertrochanteric fracture of right femur Qualifiers: Encounter type: initial encounter Fracture type: closed Qualified Code(s): S72.141A - Displaced intertrochanteric fracture of right femur, initial encounter for closed fracture Is this a current diagnosis for this admission?: YesPlan: 71-year-old female who will be preop'd for intramedullary nailing of the right hip fracture. Risk and benefits this was discussed with the family and they agreed to consent for surgery. Meantime continue bed rest, [place], pain control. Hold any anticoagulation until postoperative day. Anticipate [facility] facility for discharge planners.
--- NOTE | 2016-12-19 12:22 | Operative Report ---
Operative Report DATE OF SURGERY: 12/19/16 PREOPERATIVE DIAGNOSIS: Displaced right intertrochanteric hip fracture POSTOPERATIVE DIAGNOSIS: Same OPERATION: Cephalo-medullary nailing right intertrochanteric hip fracture SURGEON: FAB SILVERIO ANESTHESIA: GA TISSUE REMOVED OR ALTERED: None COMPLICATIONS: None ESTIMATED BLOOD LOSS: 50 mL INTRAOPERATIVE FINDINGS: As above PROCEDURE: Patient was seen and evaluated in the preoperative holding area. The right lower extremity was initialized and marked. Patient received 2 g Ancef IV for bacterial prophylaxis. Patient was taken back to the operative room where transferred operative table. Patient was placed under spinal anesthesia. Once adequate anesthetized he was carefully placed onto the hip positioner the nonoperative lower extremity and bilateral upper extremities were carefully padded and the peroneal nerve was padded and on the nonoperative extremity. The operative extremity was placed in a traction along with adduction and internal rotation. A surgical team debriefing was performed ensuring all instrumentation was available, the surgical procedure was discussed with possible concerns reviewed. A timeout was done identifying correct patient, procedure and extremity everyone in attendance agree with this and verbalized no concerns. Reduction maneuver with the use of the hip traction table were done and C-arm fluoroscopy was used to confirm optimal reduction of the intertrochanteric fracture. Once this was confirmed the lower extremity was prepped with chlor prep and draped in a sterile fashion. At this point a small skin incision was made proximal to the greater trochanter. The guidewire was placed onto the tip of the trochanter advanced down to the level of the lesser trochanter. AP and lateral fluoroscopy was used to confirm appropriate placement of the guidewire. The skin incision was then extended and the underlying fascia opened up carefully to the tip of the greater trochanter. The entry reamer was then used and advanced to the level of the lesser trochanter. At this point [place] short gamma nail was opened up and placed onto the aiming arm and advanced down the shaft of the femur. AP and lateral fluoroscopy was then used to confirm appropriate placement of the nail. Then turned my attention to the compression screw fixation in the femoral head. The trochars were advanced to the skin, a skin incision was made, careful dissection down to the fascia to the lateral femoral cortex was then partaken. The guidewire was then used and placed in the center center position with the tip apex distance less than 25 mm. Once this position was obtained the size of the compression screw was measured. AP and lateral fluoroscopy used to confirm appropriate placement of our guide wire. The step reamer was used to drill up through the femoral neck and head. I then carefully advanced the compression screw into position. AP and lateral fluoroscopy was done to confirm appropriate placement of the compression screw this was then locked into position proximally. The compression screw was then disengaged from its mounting device and the guidewire was removed. Lastly proceeded with locking of the nail distally. Using the aiming arm the trochars were advanced to the skin, a skin incision was made. Careful dissection done with a hemostat to the lateral cortex of the femur. I then drilled the near and far cortices. Measured the appropriate sized distal locking screw and secured it into position. At this point AP/lateral and oblique views of the proximal and distal aspect of the nail were taken confirming appropriate placement of the compression screw, distal locking screw and intramedullary nail. Once this was confirmed I proceeded with copious irrigation of the proximal and distal wounds. The deep tissues were closed with 0 Vicryl suture, 2-0 Vicryl and pattie for skin. A dressing was placed. Sponge counts, instrument counts and needle counts were correct. Patient was then transferred from the operating room table to the operating room stretcher. The was no intraoperative complications patient tolerated procedure well was stable to PACU. Implants used: [place] 11 x 180 mm 125 Short Gamma Nail with a 100 mm compression screw
--- NOTE | 2016-12-19 12:59 | PDOC PROGRESS REPORT ---
Subjective Progress Note for:: 12/19/16 Subjective:: This a follow-up visit for right hip fracture. She was seen this morning just prior to being taken to surgery. Patient was seen this morning her son was in the room at the bedside. She received morphine for pain an hour prior to my arrival And is currently somnolent. No acute events overnight. She is currently on her way to surgery. Physical Exam Vital Signs: Temp Pulse Resp BP Pulse Ox 98.6 F 117 H 16 121/69 97 12/19/16 08:57 12/19/16 08:57 12/19/16 08:57 12/19/16 08:57 12/19/16 08:57 Intake & Output 12/18/16 12/19/16 12/20/16 06:59 06:59 06:59 Intake Total 651 2359 Output Total 325 875 Balance 326 1484 Weight 73.6 kg 80.1 kg Physical exam: Gen.: This is a well-developed well-nourished appearing white female sleep Heart: Tachycardic at the bedside. No murmurs rubs or gallops.. Lungs: Clear anteriorly. SHe has equal rise and fall of the chest. She is currently on oxygen at 2 L and satting 90%. Abdomen: Soft nontender nondistended. Extremities: No clubbing cyanosis or edema. Right leg is shorter than the left and outwardly rotated. 1+ pulses bilaterally. Neuro: She is sleeping. She opens her eyes when her shoulders are gently shaken rapidly drifts back off. Results Laboratory Results: 12/19/16 04:11 12/19/16 04:11 12/18/16 12/19/16 12/19/16 13:43 04:11 04:11 WBC 11.3 H RBC 3.76 Hgb 10.5 L Hct 32.5 L MCV 86 MCH 28.0 MCHC 32.4 RDW 14.8 H Plt Count 144 L Seg Neutrophils % 79.2 H Lymphocytes % 9.8 L Monocytes % 10.4 Eosinophils % 0.2 Basophils % 0.4 Absolute Neutrophils 8.9 H Absolute Lymphocytes 1.1 Absolute Monocytes 1.2 Absolute Eosinophils 0.0 Absolute Basophils 0.1 Sodium 145.3 H 145.8 H Potassium 3.7 3.8 Chloride 107 109 H Carbon Dioxide 26 25 Anion Gap 12 12 BUN 23 H 20 Creatinine 0.77 0.62 Est GFR ( Amer) > 60 > 60 Est GFR (Non-Af Amer) > 60 > 60 Glucose 143 H 131 H Calcium 9.6 9.5 Magnesium 2.0 1.8 Total Bilirubin 1.0 AST 26 ALT 26 Alkaline Phosphatase 55 Total Protein 6.1 L Albumin 3.6 Free T4 Free T3 pg/mL 12/19/16 04:11 WBC RBC Hgb Hct MCV MCH MCHC RDW Plt Count Seg Neutrophils % Lymphocytes % Monocytes % Eosinophils % Basophils % Absolute Neutrophils Absolute Lymphocytes Absolute Monocytes Absolute Eosinophils Absolute Basophils Sodium Potassium Chloride Carbon Dioxide Anion Gap BUN Creatinine Est GFR ( Amer) Est GFR (Non-Af Amer) Glucose Calcium Magnesium Total Bilirubin AST ALT Alkaline Phosphatase Total Protein Albumin Free T4 1.52 Free T3 pg/mL 5.15 Impressions: Hip/Pelvis X-Ray 12/17/16 00:00 IMPRESSION: Acute right intertrochanteric fracture with varus angulation and medial displacement of the lesser trochanter fragment Head CT 12/17/16 14:12 IMPRESSION: CHRONIC CHANGES OF ATROPHY AND MICROVASCULAR ISCHEMIA. NO ACUTE PROCESS. Chest X-Ray 12/17/16 14:17 IMPRESSION: Minimal right basilar atelectasis Assessment & Plan - Diagnosis (1) Intertrochanteric fracture of right femur Qualifiers: Encounter type: initial encounter Fracture type: closed Qualified Code(s): S72.141A - Displaced intertrochanteric fracture of right femur, initial encounter for closed fracture Is this a current diagnosis for this admission?: YesPlan: Consult orthopedic surgery. Management as per them. Pain control. When necessary Percocet will be available. Patient will go to the OR momentarily. (2) Hypokalemia Plan: Replaced again this morning. Repeat K 1 hour after all riders her in. (3) Leukocytosis Plan: Possibly secondary to her underlying fracture. It is resolved. (4) Fall Plan: Continue follow-up precautions. (5) COPD (chronic obstructive pulmonary disease) Plan: COPD without acute exacerbation. Will have scheduled nebs every 6. I do not see any inhalers in the patient's home medications. Begin Spiriva. Continue oxygen. Apparently she supposed to be on it continuously but has not followed these recommendations. (6) Hypertension Plan: When necessary hydralazine. (7) Hyperthyroidism Plan: TSH is less than 0.1. The T3-T4 is normal. (8) Altered mental status Plan: ABG was not able to be obtained yesterday secondary to safety reasons. UDS shows no opioids in her urine. Alcohol level was negligible. Supposedly her last dose of opioid was 3 months ago. His be consistent with findings in her urine drug screen. As far as her son know she has not been taking anyone else' s medications. Patient's TSH is extremely low but her T3/T4 is normal. No supplements in her medicine bag. Once her hip is fixed and all of these variables are corrected we will be able to fully assess her. If she is Still confused it could be due to underlying dementia. CT scan of the head showed no acute findings. - Time Time Spent with patient: 15-24 minutes Anticipated discharge: SNF - Inpatient Certification Medical Necessity: Significant Comorbidiites Make Outpatient Treatment Too Risky , Need Close Monitoring Due to Risk of Patient Decompensation
[2016-12-19] MEDS ORDERED: RINGERS SOLUTION,LACTATED 1,000 ML IV PRN (13:30)
[2016-12-19 14:35] LABS: ABSOLUTE BASOPHILS # (AUTO) 0.1 10^3/uL (0.0-0.2); ABSOLUTE EOSINOPHILS # (AUTO) 0.1 10^3/uL (0.0-0.6); ABSOLUTE LYMPHOCYTES (AUTO) 1.3 10^3/uL (0.5-4.7); ABSOLUTE MONOCYTES (AUTO) 1.1 10^3/uL (0.1-1.4); ABSOLUTE NEUT (AUTO) 8.5 10^3/uL (1.7-8.2); BASOPHILS % (AUTO) 0.6 % (0-2); EOSINOPHILS % (AUTO) 0.5 % (0-6); HEMATOCRIT 30.2 % (36.0-47.0); HEMOGLOBIN 9.6 g/dL (12.0-15.5); HGB HCT DIFFERENCE -1.4; LYMPHOCYTES % (AUTO) 11.4 % (13-45); MEAN CORPUSCULAR HEMOGLOBIN 27.4 pg (27.0-33.4); MEAN CORPUSCULAR HGB CONC 31.7 g/dL (32.0-36.0); MEAN CORPUSCULAR VOLUME 87 fl (80-97); SEGMENTED NEUTROPHILS % (AUTO) 77.5 % (42-78)
[2016-12-19] MEDS ORDERED: LIDOCAINE 2% INJ-PF (20 MG/ML) 10 ML AMPUL ONE (16:39)
[2016-12-19] MEDS ORDERED: NEOSTIGMINE METHYLSULFATE 10 MG/10 ML VIAL ONE (16:39)
[2016-12-19] MEDS: CEFAZOLIN 2 GM/D5W RTU 2 GM/50 ML RTUPB IV SCH (17:39)
[2016-12-20] MEDS: MORPHINE SULFATE 10 MG/ML INJ IV PRN ×4 (00:31→16:15)
[2016-12-20] MEDS: IPRATROPIUM/ALBUTEROL 0.5-2.5 MG/3 ML AMPUL NEB SCH ×4 (01:37→20:17)
[2016-12-20] MEDS: CEFAZOLIN 2 GM/D5W RTU 2 GM/50 ML RTUPB IV SCH (01:43)
[2016-12-20 05:59] LABS: ABSOLUTE LYMPHOCYTES (AUTO) 0.7 10^3/uL (0.5-4.7); ABSOLUTE MONOCYTES (AUTO) 1.1 10^3/uL (0.1-1.4); ABSOLUTE NEUT (AUTO) 8.7 10^3/uL (1.7-8.2); BASOPHILS % (AUTO) 0.5 % (0-2); EOSINOPHILS % (AUTO) 0.1 % (0-6); HEMATOCRIT 28.7 % (36.0-47.0); HEMOGLOBIN 9.2 g/dL (12.0-15.5); HGB HCT DIFFERENCE -1.1; LYMPHOCYTES % (AUTO) 6.6 % (13-45); MEAN CORPUSCULAR HEMOGLOBIN 28.1 pg (27.0-33.4); MEAN CORPUSCULAR HGB CONC 32.2 g/dL (32.0-36.0); MEAN CORPUSCULAR VOLUME 87 fl (80-97); MONOCYTES % (AUTO) 10.5 % (3-13); RED BLOOD COUNT 3.28 10^6/uL (3.72-5.28); RED CELL DISTRIBUTION WIDTH 14.8 % (11.5-14.0); SEGMENTED NEUTROPHILS % (AUTO) 82.3 % (42-78); WHITE BLOOD COUNT 10.6 10^3/uL (4.0-10.5)
[2016-12-20 06:27] LABS: ANION GAP 7 (5-19); BLOOD UREA NITROGEN 15 mg/dL (7-20); CALCIUM 9.6 mg/dL (8.4-10.2); CARBON DIOXIDE 29 mmol/L (22-30); CHLORIDE 111 mmol/L (98-107); CREATININE RESULT 0.58 mg/dL (0.52-1.25); GLUCOSE 123 mg/dL (75-110); MAGNESIUM 1.7 mg/dL (1.6-2.3); POTASSIUM 3.9 mmol/L (3.6-5.0)
[2016-12-20] MEDS: HALOPERIDOL LACTATE INJ 5 MG/1 ML VIAL IV PRN (07:47)
[2016-12-20] MEDS: METOPROLOL TARTRATE 25 MG TABLET PO SCH ×2 (09:59→21:18)
[2016-12-20 10:43] LABS: CREATINE KINASE MB 2.29 ng/mL (<4.55); TROPONIN I 0.019 ng/mL
--- NOTE | 2016-12-20 11:36 | EKG REPORT ---
SEVERITY:- ABNORMAL ECG - SINUS TACHYCARDIA NONSPECIFIC T ABNORMALITIES, INFERIOR LEADS : Confirmed by: Deep Tello 20-Dec-2016 11:35:37
[2016-12-20 13:51] LABS: ABSOLUTE LYMPHOCYTES (AUTO) 1.1 10^3/uL (0.5-4.7); ABSOLUTE MONOCYTES (AUTO) 1.3 10^3/uL (0.1-1.4); ABSOLUTE NEUT (AUTO) 8.8 10^3/uL (1.7-8.2); BASOPHILS % (AUTO) 0.4 % (0-2); EOSINOPHILS % (AUTO) 0.1 % (0-6); HEMOGLOBIN 8.6 g/dL (12.0-15.5); HGB HCT DIFFERENCE -1.2; LYMPHOCYTES % (AUTO) 9.4 % (13-45); MEAN CORPUSCULAR HEMOGLOBIN 27.6 pg (27.0-33.4); MEAN CORPUSCULAR HGB CONC 31.8 g/dL (32.0-36.0); MEAN CORPUSCULAR VOLUME 87 fl (80-97); MONOCYTES % (AUTO) 11.7 % (3-13); RED BLOOD COUNT 3.11 10^6/uL (3.72-5.28); RED CELL DISTRIBUTION WIDTH 14.7 % (11.5-14.0); SEGMENTED NEUTROPHILS % (AUTO) 78.4 % (42-78); WHITE BLOOD COUNT 11.2 10^3/uL (4.0-10.5)
[2016-12-20 14:06] LABS: ANION GAP 10 (5-19); BLOOD UREA NITROGEN 14 mg/dL (7-20); CALCIUM 9.5 mg/dL (8.4-10.2); CARBON DIOXIDE 27 mmol/L (22-30); CHLORIDE 108 mmol/L (98-107); CREATININE RESULT 0.53 mg/dL (0.52-1.25); GLUCOSE 146 mg/dL (75-110); SODIUM 145.2 mmol/L (137-145)
[2016-12-20] MEDS: LORAZEPAM INJ 2 MG/1 ML VIAL IV PRN (17:00)
[2016-12-20] MEDS ORDERED: CEFAZOLIN 2 GM/D5W RTU 2 GM/50 ML RTUPB IV SCH (22:00)
[2016-12-20] MEDS: HEPARIN SOD (PORCINE) 5,000 UNIT/ML 1 ML SYRINGE SUBCUT SCH (22:48)
[2016-12-21] MEDS: ACETAMINOPHEN 325 MG TABLET PO PRN (00:30)
[2016-12-21] MEDS: MORPHINE SULFATE 10 MG/ML INJ IV PRN ×3 (01:02→16:57)
[2016-12-21] MEDS: IPRATROPIUM/ALBUTEROL 0.5-2.5 MG/3 ML AMPUL NEB SCH ×4 (02:32→19:35)
[2016-12-21] MEDS: HEPARIN SOD (PORCINE) 5,000 UNIT/ML 1 ML SYRINGE SUBCUT SCH ×3 (05:09→21:00)
[2016-12-21] MEDS: METOPROLOL TARTRATE 25 MG TABLET PO SCH ×2 (10:14→21:01)
--- NOTE | 2016-12-21 12:11 | PDOC PROGRESS REPORT ---
Subjective Progress Note for:: 12/20/16 Subjective:: This a follow-up visit for right hip fracture. Patient was awake and more alert today. She tells me "morning. She tells me that her hip hurts. Is able to answer other basic questions yes or no. He is surprised to hear that she broke her hip and will need rehabilitation. Events overnight. She says that she would like to have some coffee. During the day her rate reached to the 140s. EKG was done and shows sinus tach. Physical Exam Vital Signs: Temp Pulse Resp BP Pulse Ox 100.1 F 103 H 20 132/72 H 94 12/20/16 12:10 12/20/16 12:10 12/20/16 12:10 12/20/16 12:10 12/20/16 12:10 Intake & Output 12/19/16 12/20/16 12/21/16 06:59 06:59 06:59 Intake Total 2359 2920 455 Output Total 875 2775 200 Balance 1484 145 255 Weight 80.1 kg 81.8 kg Physical exam: Gen.: This is a well-developed well-nourished appearing white female resting in her bed in no acute distress. Heart: Tachycardic at the bedside. No murmurs rubs or gallops.. Lungs: Clear anteriorly. SHe has equal rise and fall of the chest. She is currently on oxygen Abdomen: Soft nontender nondistended. Extremities: No clubbing cyanosis or edema. 1+ pulses bilaterally. Patient's right hip is appropriately bandaged. [place] are clean dry and intact. Tenderness to palpation over the right hip and inner thigh. Skin: There is ecchymosis over the patient right hip and inner thigh. Neuro: She is awake and alert. She is able to answer some questions appropriately. She is not oriented. Results Laboratory Results: 12/20/16 13:40 12/19/16 12/20/16 12/20/16 14:20 05:23 05:23 WBC 11.0 H 10.6 H RBC 3.50 L 3.28 L Hgb 9.6 L 9.2 L Hct 30.2 L 28.7 L MCV 87 87 MCH 27.4 28.1 MCHC 31.7 L 32.2 RDW 15.0 H 14.8 H Plt Count 138 L 146 L Seg Neutrophils % 77.5 82.3 H Lymphocytes % 11.4 L 6.6 L Monocytes % 10.0 10.5 Eosinophils % 0.5 0.1 Basophils % 0.6 0.5 Absolute Neutrophils 8.5 H 8.7 H Absolute Lymphocytes 1.3 0.7 Absolute Monocytes 1.1 1.1 Absolute Eosinophils 0.1 0.0 Absolute Basophils 0.1 0.0 Sodium 147.0 H Potassium 3.9 Chloride 111 H Carbon Dioxide 29 Anion Gap 7 BUN 15 Creatinine 0.58 Est GFR ( Amer) > 60 Est GFR (Non-Af Amer) > 60 Glucose 123 H Calcium 9.6 Magnesium 1.7 12/20/16 12/20/16 08:50 13:40 WBC 11.2 H RBC 3.11 L Hgb 8.6 L Hct 27.0 L MCV 87 MCH 27.6 MCHC 31.8 L RDW 14.7 H Plt Count 154 Seg Neutrophils % 78.4 H Lymphocytes % 9.4 L Monocytes % 11.7 Eosinophils % 0.1 Basophils % 0.4 Absolute Neutrophils 8.8 H Absolute Lymphocytes 1.1 Absolute Monocytes 1.3 Absolute Eosinophils 0.0 Absolute Basophils 0.0 Sodium Potassium Chloride Carbon Dioxide Anion Gap BUN Creatinine Est GFR ( Amer) Est GFR (Non-Af Amer) Glucose Calcium Magnesium 1.6 12/20/16 12/20/16 08:50 09:52 Creatine Kinase 504 H CK-MB (CK-2) 2.29 Troponin I 0.019 Impressions: Hip/Pelvis X-Ray 12/17/16 00:00 IMPRESSION: Acute right intertrochanteric fracture with varus angulation and medial displacement of the lesser trochanter fragment Head CT 12/17/16 14:12 IMPRESSION: CHRONIC CHANGES OF ATROPHY AND MICROVASCULAR ISCHEMIA. NO ACUTE PROCESS. Chest X-Ray 12/17/16 14:17 IMPRESSION: Minimal right basilar atelectasis Fluoroscopy 12/19/16 10:00 IMPRESSION: IMAGE(S) OBTAINED DURING PROCEDURE. Hip X-Ray 12/19/16 10:00 IMPRESSION: IMAGE(S) OBTAINED DURING PROCEDURE. Assessment & Plan - Diagnosis (1) Intertrochanteric fracture of right femur Qualifiers: Encounter type: initial encounter Fracture type: closed Qualified Code(s): S72.141A - Displaced intertrochanteric fracture of right femur, initial encounter for closed fracture Is this a current diagnosis for this admission?: YesPlan: Postop day 2 from nailing. Management as per orthopedics. Pain control. When necessary Percocet will be available. Patient has ecchymosis and exquisite tenderness over the inner thigh. Blood counts were noted to have dropped yesterday. CBC from this morning is still pending. Will await results. If her H&H is low again we will need to scan her pelvis to check for hematoma. (2) Hypokalemia Plan: Resolved (3) Leukocytosis Plan: Possibly secondary to her underlying fracture. It is resolved. (4) Fall Plan: Continue follow-up precautions. (5) COPD (chronic obstructive pulmonary disease) Plan: COPD without acute exacerbation. Will have scheduled nebs every 6. I do not see any inhalers in the patient's home medications. Begin Spiriva. Continue oxygen. Apparently she supposed to be on it continuously but has not followed these recommendations. (6) Hypertension Plan: When necessary hydralazine. (7) Hyperthyroidism Plan: TSH is less than 0.1. The T3-T4 is normal. (8) Altered mental status Plan: She is better still today. She is answering questions rationally. Not quite back to baseline. UDS shows no opioids in her urine. Alcohol level was negative. Supposedly her last dose of opioid was 3 months ago. tHis is consistent with findings in her urine drug screen. As far as her son knows she has not been taking anyone else's medications. Patient's TSH is extremely low but her T3/T4 is normal. No supplements in her medicine bag. CT scan of the head showed no acute findings. (9) Sinus tachycardia Plan: Multifactorial. Patient does have legitimate pain. EKG shows sinus tach. Will check cardiac echo. Continue metoprolol 12.5 mg by mouth twice a day. Adjust as appropriate. - Time Time Spent with patient: 25-34 minutes Anticipated discharge: SNF - Inpatient Certification Medical Necessity: Significant Comorbidiites Make Outpatient Treatment Too Risky , Need Close Monitoring Due to Risk of Patient Decompensation - Plan Summary Plan Summary: Await SNF placement.
[2016-12-21 15:28] LABS: ABSOLUTE BASOPHILS # (AUTO) 0.1 10^3/uL (0.0-0.2); ABSOLUTE EOSINOPHILS # (AUTO) 0.3 10^3/uL (0.0-0.6); ABSOLUTE LYMPHOCYTES (AUTO) 2.4 10^3/uL (0.5-4.7); ABSOLUTE MONOCYTES (AUTO) 1.2 10^3/uL (0.1-1.4); ABSOLUTE NEUT (AUTO) 6.7 10^3/uL (1.7-8.2); BASOPHILS % (AUTO) 0.7 % (0-2); EOSINOPHILS % (AUTO) 2.4 % (0-6); HEMATOCRIT 25.3 % (36.0-47.0); HEMOGLOBIN 8.1 g/dL (12.0-15.5); LYMPHOCYTES % (AUTO) 22.9 % (13-45); MEAN CORPUSCULAR HEMOGLOBIN 27.7 pg (27.0-33.4); MEAN CORPUSCULAR HGB CONC 32.1 g/dL (32.0-36.0); MEAN CORPUSCULAR VOLUME 86 fl (80-97); MONOCYTES % (AUTO) 11.4 % (3-13); RED BLOOD COUNT 2.94 10^6/uL (3.72-5.28); RED CELL DISTRIBUTION WIDTH 14.4 % (11.5-14.0); SEGMENTED NEUTROPHILS % (AUTO) 62.6 % (42-78); WHITE BLOOD COUNT 10.6 10^3/uL (4.0-10.5)
--- NOTE | 2016-12-21 15:41 | XCELERA REPORT ---
[address] [address] Transthoracic Echocardiogram Report Name: JOSE ANGEL FINCH Age: 71 yrs Gender: Female : 1945 Patient Status: Inpatient Patient Location: [id number]\S\319\S\A Study Date: 12/21/2016 01:28 PM Height: 66 in Weight: 180 lb BSA: 1.9 m2 Procedure: A two-dimensional transthoracic echocardiogram with color flow and Doppler was performed. The study was technically difficult with many images being suboptimal in quality. Reason For Study: tachycardia History: Tachycardia. Ordering Physician: MARIN FREEMAN Performed By: Jaylin Talbot Interpretation Summary The left ventricle is normal in size. There is normal left ventricular wall thickness. LV EF is 65% The left ventricular wall motion is normal. There is no thrombus. The right ventricle is normal in size and function. The right atrium is normal. The left atrial size is normal. There is no evidence of mitral valve prolapse. There is a trace amount of mitral regurgitation There is no aortic valve stenosis There is no LVOT obstruction. No aortic regurgitation is present. There is no tricuspid stenosis. There is a mild amount of tricuspid regurgitation There is moderate pulmonary hypertension by echo RVSP is 48 to 53 mm of Hg , with RA mean of 5 to 10. There is no pericardial effusion. MMode/2D Measurements \T\ Calculations RVDd: 3.1 cm LVIDd: 4.7 cm FS: 36.9 % Ao root diam: 3.4 cm IVSd: 0.99 cm LVIDs: 3.0 cm EDV(Teich): 103.3 ml LVPWd: 0.95 cmESV(Teich): 34.4 ml Ao root area: 9.1 cm2 EF(Teich): 66.7 % LA dimension: 3.6 cm LVOT diam: 2.4 cm LVOT area: 4.5 cm2 Doppler Measurements \T\ Calculations MV E max beth: MV P1/2t max beth: Ao V2 max: LV V1 max P.0 cm/sec 74.4 cm/sec 158.5 cm/sec 7.4 mmHg MV A max beth: MV P1/2t: 49.0 msec Ao max PG: LV V1 max: 76.7 cm/sec MVA(P1/2t): 4.5 cm2 10.1 mmHg 136.0 cm/sec MV E/A: 0.96 MV dec slope: LINETTE(V,D): 3.9 cm2 444.9 cm/sec2 PA V2 max: TR max beth: 104.1 cm/sec 324.4 cm/sec PA max PG: TR max P.1 mmHg 4.3 mmHg Left Ventricle The left ventricle is normal in size. There is normal left ventricular wall thickness. LV EF is 65%. Left ventricular systolic function is normal. The left ventricular wall motion is normal. There is no thrombus. There is no ventricular septal defect visualized. Right Ventricle The right ventricle is normal in size and function. Atria The right atrium is normal. The left atrial size is normal. The interatrial septum is intact with no evidence for an atrial septal defect. Mitral Valve There is mild mitral annular calcification. There is no evidence of mitral valve prolapse. There is no vegetation seen on the mitral valve. There is no mitral valve stenosis. There is a trace amount of mitral regurgitation. Aortic Valve There is no aortic valvular vegetation. There is no aortic valve stenosis. There is no LVOT obstruction. No aortic regurgitation is present. Tricuspid Valve There is no tricuspid stenosis. There is a mild amount of tricuspid regurgitation. There is moderate pulmonary hypertension by echo. RVSP is 48 to 53 mm of Hg , with RA mean of 5 to 10. Pulmonic Valve There is no pulmonic valvular stenosis. There is no pulmonic valvular regurgitation. Great Vessels The aortic root is normal size. Effusions There is no pericardial effusion. : MARIN FREEMAN > Helena Guadalupe
[2016-12-21 15:46] LABS: ANION GAP 8 (5-19); BLOOD UREA NITROGEN 11 mg/dL (7-20); CARBON DIOXIDE 29 mmol/L (22-30); CHLORIDE 98 mmol/L (98-107); CREATININE RESULT 0.53 mg/dL (0.52-1.25); GLUCOSE 108 mg/dL (75-110); MAGNESIUM 1.4 mg/dL (1.6-2.3); POTASSIUM 3.9 mmol/L (3.6-5.0); SODIUM 135.1 mmol/L (137-145)
[2016-12-21] MEDS ORDERED: NICOTINE 21 MG/24 HR PATCH.TD24 TD ONE (17:00)
[2016-12-21] MEDS: LORAZEPAM INJ 2 MG/1 ML VIAL IV PRN (18:12)
[2016-12-21] MEDS: OXYCODONE-ACETAMINOPHEN 5-325 MG TABLET PO PRN (18:55)
[2016-12-22] MEDS: IPRATROPIUM/ALBUTEROL 0.5-2.5 MG/3 ML AMPUL NEB SCH ×4 (02:19→20:24)
[2016-12-22] MEDS: HEPARIN SOD (PORCINE) 5,000 UNIT/ML 1 ML SYRINGE SUBCUT SCH ×3 (05:32→21:30)
[2016-12-22] MEDS: OXYCODONE-ACETAMINOPHEN 5-325 MG TABLET PO PRN ×3 (07:46→19:23)
[2016-12-22] MEDS: METOPROLOL TARTRATE 25 MG TABLET PO SCH ×2 (10:10→21:30)
[2016-12-22] MEDS: NICOTINE 21 MG/24 HR PATCH.TD24 TD SCH (10:10)
--- NOTE | 2016-12-22 14:21 | PDOC PROGRESS REPORT ---
Subjective Progress Note for:: 12/22/16 Subjective:: Reason for follow-up visit: Right hip fracture, chronic restrictive failure, postoperative delirium Hospital course: Per H&P and other providers, "JOSE ANGEL FINCH is a 71 year old white female with a past medical history significant for tobacco abuse, COPD with home oxygen prescribed, and history of CVA who presents to the service after a fall. Patient and her son were in [place] when he opened the door for her and the patient fell. As far as he could tell she did not trip over anything. She supposed to be walking with a walker but doesn't like this and uses a cane. She is also status post be wearing 3 L of oxygen continuously but doesn't like to wear. I. According to the son whenever she has a low oxygen saturation below 90% she gets confused. He also states that she has some sort of neurologic issue and difficulty with word finding or searching. Apparently she gets agitated when she can't remember what she wants to say. She has had a CT scan in the past and was told that she has "brain shrinkage "that will be normal for her age (I think the son is meaning atrophy). At baseline she is sometimes combative as well with her confusion. She has had episodes she has overused her medication. Because of this her son gives her only medicines that she needs for the day. Her son lives with her and his son as well as his sister. After the patient fell EMS was called and oxygen levels were found to be 90%. Upon arrival in the ED she was at 88% on room air. She was also found to have systolic blood pressure of 90. She was given a bolus of fluid and placed on oxygen. This brought her O2 sats up to 95% and her blood pressure up to the 100s. CT scan of the head has not yet been done. However films of her hip were taken and showed right intertrochanteric fracture. At the bedside the patient denies any chest pain or shortness of breath. She does admit to discomfort in her right leg. Patient was awake and more alert today. She tells me "morning. She tells me that her hip hurts. Is able to answer other basic questions yes or no. He is surprised to hear that she broke her hip and will need rehabilitation. Events overnight. She says that she would like to have some coffee. During the day her rate reached to the 140s. EKG was done and shows sinus tach." I inherited her care Emperatriz and she remains confused, perseverates at times and is easily agitated when she forgets which occurs frequently during my conversation. i do not believe she can provide a reliable ROS as a result. daughter is at bedside but not much help. ROS: unobtainable due to mental state Physical Exam Vital Signs: Temp Pulse Resp BP Pulse Ox 99.1 F 92 18 92/56 L 100 12/22/16 07:05 12/22/16 08:19 12/22/16 08:19 12/22/16 07:05 12/22/16 08:19 Intake & Output 12/21/16 12/22/16 12/23/16 06:59 06:59 06:59 Intake Total 2201 483 Output Total 1700 1425 Balance 501 -942 Weight 80.9 kg 85.8 kg EXAM GENERAL: NAD; well developed, well nourished; no obese; alert and oriented to person only HEENT: normocephalic, atraumatic; no conjunctival injection, no scleral icterus ; oral mucosa moist; RESPIRATORY: no accessory muscle use, no increased WOB, good air entry bilaterally; no wheezes, or rhonchi; bilat inspiratory crackles R>L; suppl O2 at 2L/min via NC CARDIO: no JVD; RRR; no systolic murmur; no tachycardia GI: soft; nondistended; normal bowel sounds; no rebound, rigidity, guarding VASCULAR: no pallor; 2+ radial, DP pulse; normal capillary refill EXTREMITIES: no calf tender; no palpable cords in calf; no clubbing, cyanosis , pedal edema PSYCH: normal affect, normal mood but easily agitated SKIN: warm; moist; no petechiae; no telengectasias; no jaundice; no rash Results Laboratory Results: 12/21/16 14:56 12/21/16 14:56 12/21/16 12/21/16 12/22/16 14:56 14:56 07:40 WBC 10.6 H RBC 2.94 L Hgb 8.1 L Hct 25.3 L MCV 86 MCH 27.7 MCHC 32.1 RDW 14.4 H Plt Count 157 Seg Neutrophils % 62.6 Lymphocytes % 22.9 Monocytes % 11.4 Eosinophils % 2.4 Basophils % 0.7 Absolute Neutrophils 6.7 Absolute Lymphocytes 2.4 Absolute Monocytes 1.2 Absolute Eosinophils 0.3 Absolute Basophils 0.1 Sodium 135.1 L Potassium 3.9 Chloride 98 Carbon Dioxide 29 Anion Gap 8 BUN 11 Creatinine 0.53 Est GFR ( Amer) > 60 Est GFR (Non-Af Amer) > 60 Glucose 108 Calcium 9.0 Magnesium 1.4 L 1.3 L 12/20/16 12/20/16 08:50 09:52 Creatine Kinase 504 H CK-MB (CK-2) 2.29 Troponin I 0.019 Assessment & Plan - Diagnosis (1) Altered mental status Is this a current diagnosis for this admission?: YesPlan: Quite possibly at baseline, is difficult to say in the family is not very helpful at present. (2) Intertrochanteric fracture of right femur Qualifiers: Encounter type: initial encounter Fracture type: closed Qualified Code(s): S72.141A - Displaced intertrochanteric fracture of right femur, initial encounter for closed fracture Is this a current diagnosis for this admission?: YesPlan: s/p intertrochanteric medullary nailing (3) COPD (chronic obstructive pulmonary disease) Qualifiers: COPD type: chronic bronchitis Chronic bronchitis type: simple Qualified Code(s): J41.0 - Simple chronic bronchitis Is this a current diagnosis for this admission?: YesPlan: stable - Time Time Spent with patient: 25-34 minutes Anticipated discharge: Acute Rehab Within: when bed available - Plan Summary Plan Summary: Case discussed with care coordinators, awaiting bed placement. Patient is stable for disposition.
[2016-12-22 15:02] LABS: ABSOLUTE BASOPHILS # (AUTO) 0.1 10^3/uL (0.0-0.2); ABSOLUTE EOSINOPHILS # (AUTO) 0.4 10^3/uL (0.0-0.6); ABSOLUTE LYMPHOCYTES (AUTO) 1.7 10^3/uL (0.5-4.7); ABSOLUTE MONOCYTES (AUTO) 1.1 10^3/uL (0.1-1.4); BASOPHILS % (AUTO) 0.7 % (0-2); HEMATOCRIT 26.6 % (36.0-47.0); HEMOGLOBIN 8.5 g/dL (12.0-15.5); HGB HCT DIFFERENCE -1.1; LYMPHOCYTES % (AUTO) 18.2 % (13-45); MEAN CORPUSCULAR HEMOGLOBIN 27.6 pg (27.0-33.4); MEAN CORPUSCULAR HGB CONC 31.9 g/dL (32.0-36.0); MEAN CORPUSCULAR VOLUME 86 fl (80-97); MONOCYTES % (AUTO) 11.6 % (3-13); RED BLOOD COUNT 3.07 10^6/uL (3.72-5.28); RED CELL DISTRIBUTION WIDTH 14.4 % (11.5-14.0); SEGMENTED NEUTROPHILS % (AUTO) 65.5 % (42-78); WHITE BLOOD COUNT 9.2 10^3/uL (4.0-10.5)
[2016-12-22 15:29] LABS: ANION GAP 9 (5-19); BLOOD UREA NITROGEN 9 mg/dL (7-20); CALCIUM 9.2 mg/dL (8.4-10.2); CARBON DIOXIDE 33 mmol/L (22-30); CHLORIDE 98 mmol/L (98-107); CREATININE RESULT 0.54 mg/dL (0.52-1.25); GLUCOSE 105 mg/dL (75-110); POTASSIUM 4.3 mmol/L (3.6-5.0); SODIUM 140.2 mmol/L (137-145)
--- NOTE | 2016-12-22 21:15 | PDOC PROGRESS REPORT ---
Subjective Progress Note for:: 12/22/16 Subjective:: No issues overnight sleeping in bed comfortably. Physical Exam Vital Signs: Temp Pulse Resp BP Pulse Ox 36.9 C 97 16 119/58 L 100 12/22/16 19:49 12/22/16 19:49 12/22/16 19:49 12/22/16 19:49 12/22/16 19:49 Intake & Output 12/21/16 12/22/16 12/23/16 06:59 06:59 06:59 Intake Total 2201 584 510 Output Total 1705 5470 1350 Balance 345 -138 -523 Weight 80.9 kg 85.8 kg Adult Front & Back Image: 1 - Ecchymosis and swelling. Dressing and Incisions are dry clean and intact. Neurovascular intact distally. Results Laboratory Results: 12/22/16 14:11 12/22/16 14:11 12/22/16 12/22/16 12/22/16 07:40 14:11 14:11 WBC 9.2 RBC 3.07 L Hgb 8.5 L Hct 26.6 L MCV 86 MCH 27.6 MCHC 31.9 L RDW 14.4 H Plt Count 173 Seg Neutrophils % 65.5 Lymphocytes % 18.2 Monocytes % 11.6 Eosinophils % 4.0 Basophils % 0.7 Absolute Neutrophils 6.0 Absolute Lymphocytes 1.7 Absolute Monocytes 1.1 Absolute Eosinophils 0.4 Absolute Basophils 0.1 Sodium 140.2 Potassium 4.3 Chloride 98 Carbon Dioxide 33 H Anion Gap 9 BUN 9 Creatinine 0.54 Est GFR ( Amer) > 60 Est GFR (Non-Af Amer) > 60 Glucose 105 Calcium 9.2 Magnesium 1.3 L 12/20/16 12/20/16 08:50 09:52 Creatine Kinase 504 H CK-MB (CK-2) 2.29 Troponin I 0.019 Impressions: Hip/Pelvis X-Ray 12/17/16 00:00 IMPRESSION: Acute right intertrochanteric fracture with varus angulation and medial displacement of the lesser trochanter fragment Head CT 12/17/16 14:12 IMPRESSION: CHRONIC CHANGES OF ATROPHY AND MICROVASCULAR ISCHEMIA. NO ACUTE PROCESS. Chest X-Ray 12/17/16 14:17 IMPRESSION: Minimal right basilar atelectasis Fluoroscopy 12/19/16 10:00 IMPRESSION: IMAGE(S) OBTAINED DURING PROCEDURE. Hip X-Ray 12/19/16 10:00 IMPRESSION: IMAGE(S) OBTAINED DURING PROCEDURE. Assessment & Plan - Diagnosis (1) Intertrochanteric fracture of right femur Qualifiers: Encounter type: initial encounter Fracture type: closed Qualified Code(s): S72.141A - Displaced intertrochanteric fracture of right femur, initial encounter for closed fracture Is this a current diagnosis for this admission?: Yes - Plan Summary Plan Summary: 71-year-old who is status post intramedullary nailing of the right intertrochanteric hip fracture. She continues work with therapy. Continue pain control. H&H is stable. Awaiting placement.
[2016-12-22] MEDS: MORPHINE SULFATE 10 MG/ML INJ IV PRN (21:31)
[2016-12-22] MEDS: ACETAMINOPHEN 325 MG TABLET PO PRN (23:40)
[2016-12-23] MEDS: IPRATROPIUM/ALBUTEROL 0.5-2.5 MG/3 ML AMPUL NEB SCH ×4 (01:51→20:56)
[2016-12-23] MEDS: LORAZEPAM INJ 2 MG/1 ML VIAL IV PRN (02:10)
[2016-12-23] MEDS: NICOTINE 21 MG/24 HR PATCH.TD24 TD SCH (10:00)
[2016-12-23] MEDS: METOPROLOL TARTRATE 25 MG TABLET PO SCH ×2 (10:00→21:15)
[2016-12-23] MEDS: HEPARIN SOD (PORCINE) 5,000 UNIT/ML 1 ML SYRINGE SUBCUT SCH ×2 (14:00→21:15)
--- NOTE | 2016-12-23 16:37 | PROGRESS NOTE E ---
Progress Note NAME: JOSE ANGEL FINCH : 1945 AGE: 71Y DATE: 12/23/2016 ROOM: 319 SUBJECTIVE: No new events overnight, nurses report no complaints at this time. REVIEW OF SYSTEMS: The patient is confused again this morning and a reliable review of systems is really unobtainable. She does continue to complain of pain in her hip but states it is controlled. OBJECTIVE: VITAL SIGNS: Are stable; nurses' notes reviewed and discussed at the bedside. GENERAL: I found the patient sitting upright in bed in no obvious distress, though she does remain confused. She does not remember meeting me yesterday and again becomes agitated when discussions of placement in rehab begin. EXTREMITIES: She moves all 4 extremities. LUNGS: She is breathing easily, in no obvious respiratory distress. HEENT: Oral mucosae is moist. Extraocular muscles are intact. SKIN: Is warm and dry. ASSESSMENT AND PLAN: 1. HIP FRACTURE, STATUS POST MEDULLARY NAILING. 2. ACUTE COPD EXACERBATION. 3. DEMENTIA WITHOUT BEHAVIORAL DISTURBANCE. PLAN: We are awaiting placement at rehab center at this time; have not yet heard back regarding bed status, but the patient is stable for transfer. While the patient is confused at times, her behaviors are controlled and she is cooperative with staff. ASSESSMENT: @ PLAN: @ DICTATING PHYSICIAN: DENI KEBEDE M.D. [id number] PHY#: [id number] ID: [id number] JOB#: [id number] ACCT: [id number] cc: >
[2016-12-23] MEDS: MORPHINE SULFATE 10 MG/ML INJ IV PRN (21:21)
[2016-12-24] MEDS: IPRATROPIUM/ALBUTEROL 0.5-2.5 MG/3 ML AMPUL NEB SCH ×3 (01:48→14:00)
[2016-12-24] MEDS: MORPHINE SULFATE 10 MG/ML INJ IV PRN (03:53)
[2016-12-24] MEDS: HEPARIN SOD (PORCINE) 5,000 UNIT/ML 1 ML SYRINGE SUBCUT SCH ×2 (05:47→13:44)
[2016-12-24 07:54] VITALS: BP 128/68
[2016-12-24] MEDS: OXYCODONE-ACETAMINOPHEN 5-325 MG TABLET PO PRN (09:53)
[2016-12-24] MEDS: NICOTINE 21 MG/24 HR PATCH.TD24 TD SCH (09:54)
[2016-12-24] MEDS: METOPROLOL TARTRATE 25 MG TABLET PO SCH (09:54)
--- NOTE | 2016-12-24 13:44 | PDOC TRANSFER SUMMARY ---
General - Admit/Disc Date/PCP Admission Date/Primary Care Provider: 12/17/16 15:45 THAIS EDUARDO MD Discharge Date: 12/24/16 - Discharge Diagnosis (1) Altered mental status Is this a current diagnosis for this admission?: YesSummary: she has underlying dementia and suffered post-op delirium. according to family she seems to be back to baseline. (2) Intertrochanteric fracture of right femur Is this a current diagnosis for this admission?: YesSummary: s/p intramedullary nailing; weight bearing, rehab and wound care per orthopedics. (3) COPD (chronic obstructive pulmonary disease) Is this a current diagnosis for this admission?: YesSummary: back to baseline 3L/min via [place] home O2 and stable for d/c to rehab. - Additional Information Resuscitation Status: Full Code Home Medications: Baclofen [Baclofen 10 mg Tablet] 10 mg PO TIDP PRN 12/17/16 Cefuroxime Axetil [Ceftin 500 mg Tablet] 1 tab PO BID 12/17/16 Cyclobenzaprine HCl [Flexeril 5 mg Tablet] 5 mg PO QHS 12/17/16 Hydrocodone/Acetaminophen [Brandywine 7.5-325 mg Tablet] 1 tab PO BIDP PRN 12/17/16 Hydromorphone HCl [Dilaudid 2 mg Tablet] 2 mg PO Q8HP PRN 12/17/16 Lidocaine [Lidoderm 5% (700 mg) Transdermal Patch] 1 patch TP DAILY 12/17/16 Lisinopril [Prinivil 2.5 mg Tablet] 2.5 mg PO QAM 12/17/16 Oxycodone HCl [Oxy-Ir 5 mg Tablet] 5 mg PO Q6HP PRN 12/17/16 Clopidogrel Bisulfate [Plavix 75 mg Tablet] 75 mg PO DAILY 12/18/16 Furosemide [Lasix] 40 mg PO DAILY 12/18/16 Gabapentin 100 mg PO QHS 12/18/16 Omeprazole 20 mg PO DAILY 12/18/16 Venlafaxine HCl ER [Effexor Xr 75 mg Cap.sr] 75 mg PO DAILY 12/18/16 History of Present Illness Admission Date/PCP: 12/17/16 15:45 THAIS EDUARDO MD Patient complains of: hip pain History of Present Illness: 71-year-old female status post fall onto the right side. Immediately had pain and difficulty getting up. Patient was brought by EMS then treated. X-rays show the patient had a right intertrochanteric hip fracture. Patient complains of right hip pain. Denies any numbness or tingling. Denies any other extremity injuries. Story was provided by family and nursing due to patient's dementia. She is tender on the lateral anterior aspect of the hip. She seems to be in 10 out 10 pain when attempted moving of the hip. She has obvious deformity of the right hip with shortening and external rotation of the leg. She is wiggling her toes. She previously ambulated with assistance and walker. Hospital Course Hospital Course: Per H&P and other providers, "JOSE ANGEL FINCH is a 71 year old white female with a past medical history significant for tobacco abuse, COPD with home oxygen prescribed, and history of CVA who presents to the service after a fall. Patient and her son were in [place] when he opened the door for her and the patient fell. As far as he could tell she did not trip over anything. She supposed to be walking with a walker but doesn't like this and uses a cane. She is also status post be wearing 3 L of oxygen continuously but doesn't like to wear. I. According to the son whenever she has a low oxygen saturation below 90% she gets confused. He also states that she has some sort of neurologic issue and difficulty with word finding or searching. Apparently she gets agitated when she can't remember what she wants to say. She has had a CT scan in the past and was told that she has "brain shrinkage "that will be normal for her age (I think the son is meaning atrophy). At baseline she is sometimes combative as well with her confusion. She has had episodes she has overused her medication. Because of this her son gives her only medicines that she needs for the day. Her son lives with her and his son as well as his sister. After the patient fell EMS was called and oxygen levels were found to be 90%. Upon arrival in the ED she was at 88% on room air. She was also found to have systolic blood pressure of 90. She was given a bolus of fluid and placed on oxygen. This brought her O2 sats up to 95% and her blood pressure up to the 100s. CT scan of the head has not yet been done. However films of her hip were taken and showed right intertrochanteric fracture." At the bedside the patient denies any chest pain or shortness of breath. She does admit to discomfort in her right leg. I inherited her care Emperatriz and she remained confused, perseverates at times and is easily agitated when she forgets which occurs frequently during my conversation. i do not believe she can provide a reliable ROS as a result. daughter is at bedside but not much help and seems to think she is back to her baseline. Patient was awake and more alert today. She tells me "morning. She tells me that her hip hurts. Is able to answer other basic questions yes or no. He is surprised to hear that she broke her hip and will need rehabilitation. Events overnight. She says that she would like to have some coffee. At this point she is stable for transfer to rehab until such time as she can return home to independent living. refer to dr noble notes and instructions regarding weight bearing status, rehab and wound care. Physical Exam Vital Signs: Temp Pulse Resp BP Pulse Ox 97.7 F 88 16 128/68 H 98 12/24/16 07:15 12/24/16 08:21 12/24/16 08:21 12/24/16 07:15 12/24/16 08:21 Intake & Output 12/23/16 12/24/16 12/25/16 06:59 06:59 06:59 Intake Total 1234 644 Output Total 2075 1500 Balance -841 -856 Weight 85.5 kg 88.3 kg General appearance: PRESENT: no acute distress, cooperative Head exam: PRESENT: atraumatic Eye exam: PRESENT: EOMI, PERRLA Mouth exam: PRESENT: moist, neck supple Neck exam: PRESENT: full ROM. ABSENT: JVD Respiratory exam: PRESENT: clear to auscultation ta, unlabored. ABSENT: accessory muscle use Cardiovascular exam: PRESENT: RRR. ABSENT: tachycardia GI/Abdominal exam: PRESENT: normal bowel sounds, soft. ABSENT: tenderness Extremities exam: PRESENT: other - wound is c/d/i Neurological exam: PRESENT: alert, awake, oriented to person, oriented to place , oriented to time Results Laboratory Results: 12/22/16 14:11 12/22/16 14:11 12/20/16 12/20/16 08:50 09:52 Creatine Kinase 504 H CK-MB (CK-2) 2.29 Troponin I 0.019 Impressions: Hip/Pelvis X-Ray 12/17/16 00:00 IMPRESSION: Acute right intertrochanteric fracture with varus angulation and medial displacement of the lesser trochanter fragment Head CT 12/17/16 14:12 IMPRESSION: CHRONIC CHANGES OF ATROPHY AND MICROVASCULAR ISCHEMIA. NO ACUTE PROCESS. Chest X-Ray 12/17/16 14:17 IMPRESSION: Minimal right basilar atelectasis Fluoroscopy 12/19/16 10:00 IMPRESSION: IMAGE(S) OBTAINED DURING PROCEDURE. Hip X-Ray 12/19/16 10:00 IMPRESSION: IMAGE(S) OBTAINED DURING PROCEDURE. Transfer Plan - Disposition Transfer Plan: arrangements made for transfer to [facility] for ongoing rehab - Time Spent with Patient Time spent with patient: Greater than 30 Minutes Qualifiers PATEINT BEING DISCHARGED WITH ANY OF THE FOLLOWING DIAGNOSIS?: No VTE patient discharged on overlapping Therapy?: No Reason(s) for not prescribing Overlap Therapy:: Not indicated
[2016-12-24] MEDS ORDERED: OXYCODONE-ACETAMINOPHEN 5-325 MG TABLET PO ONE (16:45)
== END 2016-12-24 20:02 | DRG 481 ==
LOC: ER 12:11 → UNDOADMIN 14:48 → EH 14:48 → 3W 20:36
PROVIDERS: ADMIT Hospitalist; ATTEND Hospitalist
PROC: 3E0F73Z Introduction of Anti-inflammatory into Respiratory Tract, Via Natural or Artificial Opening (ICD-10-PCS; 2016-12-17)
PROC: 0QS636Z Reposition Right Upper Femur with Intramedullary Internal Fixation Device, Percutaneous Approach (ICD-10-PCS; principal; 2016-12-19 09:30)
DX: S72.141A Displaced intertrochanteric fracture of right femur, initial encounter for closed fracture (principal); J44.1 Chronic obstructive pulmonary disease with (acute) exacerbation; F05 Delirium due to known physiological condition; W18.30XA Fall on same level, unspecified, initial encounter; Y92.481 Parking lot as the place of occurrence of the external cause; F03.90 Unspecified dementia, unspecified severity, without behavioral disturbance, psychotic disturbance, mood disturbance, and anxiety; I10 Essential (primary) hypertension; E05.90 Thyrotoxicosis, unspecified without thyrotoxic crisis or storm; K21.9 Gastro-esophageal reflux disease without esophagitis; F32.9 Major depressive disorder, single episode, unspecified; E87.6 Hypokalemia; R00.0 Tachycardia, unspecified; F17.210 Nicotine dependence, cigarettes, uncomplicated; M19.90 Unspecified osteoarthritis, unspecified site; Z79.899 Other long term (current) drug therapy; Z99.81 Dependence on supplemental oxygen; Z86.73 Personal history of transient ischemic attack (TIA), and cerebral infarction without residual deficits; Z90.49 Acquired absence of other specified parts of digestive tract; Z90.710 Acquired absence of both cervix and uterus; Z88.0 Allergy status to penicillin
CPT/HCPCS: 01230; 36415; 70450; 71010; 80048; 80053; 80307; 81001; 82140; 82550; 82553; 82607; 82962; 83735; 84439; 84443; 84481; 84484; 85025; 87086; 87493; 93005; 93010; 93306; 96361; 96374; 99291; C1713; G8978-GP; G8979-GP; J0690; J1630; J1644; J1741; J2060; J2250; J2270; J2704; J3010; J3475; J3480; J3490; J7030; J7120; J7620

== ENCOUNTER 2016-12-25 03:13 | Inpatient (IN) | payer MEDICARE ==
[2016-12-25] MEDS ORDERED: NORMAL SALINE 1000 ML 500 ML IV ONE (05:08)
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
[2016-12-25 06:06] LABS: ABSOLUTE BASOPHILS # (AUTO) 0.1 10^3/uL (0.0-0.2); ABSOLUTE EOSINOPHILS # (AUTO) 0.1 10^3/uL (0.0-0.6); ABSOLUTE LYMPHOCYTES (AUTO) 1.6 10^3/uL (0.5-4.7); ABSOLUTE MONOCYTES (AUTO) 1.2 10^3/uL (0.1-1.4); BASOPHILS % (AUTO) 0.8 % (0-2); EOSINOPHILS % (AUTO) 0.7 % (0-6); HEMATOCRIT 30.5 % (36.0-47.0); HEMOGLOBIN 9.4 g/dL (12.0-15.5); HGB HCT DIFFERENCE -2.3; LYMPHOCYTES % (AUTO) 12.4 % (13-45); MEAN CORPUSCULAR HEMOGLOBIN 26.5 pg (27.0-33.4); MEAN CORPUSCULAR HGB CONC 30.8 g/dL (32.0-36.0); MEAN CORPUSCULAR VOLUME 86 fl (80-97); MONOCYTES % (AUTO) 8.9 % (3-13); RED BLOOD COUNT 3.54 10^6/uL (3.72-5.28); RED CELL DISTRIBUTION WIDTH 14.7 % (11.5-14.0); SEGMENTED NEUTROPHILS % (AUTO) 77.2 % (42-78)
[2016-12-25 07:02] LABS: APPEARANCE,URINE CLOUDY; BILIRUBIN,URINE NEGATIVE (NEGATIVE); GLUCOSE, URINE NEGATIVE (NEGATIVE); KETONES,URINE NEGATIVE (NEGATIVE); LEUKOCYTE ESTERASE,URINE LARGE (NEGATIVE); NITRITE,URINE POSITIVE (NEGATIVE); PROTEIN,URINE NEGATIVE (NEGATIVE); URINE SPECIFIC GRAVITY 1.005; UROBILINOGEN,URINE NEGATIVE mg/dL (<2.0)
[2016-12-25] MEDS ORDERED: LEVOFLOXACIN 750 MG/D5W RTU 150 ML IV ONE (07:29)
[2016-12-25] MEDS ORDERED: LORAZEPAM 1 MG TABLET PO ONE (07:45)
[2016-12-25] MEDS ORDERED: IPRATROPIUM/ALBUTEROL 0.5-2.5 MG/3 ML AMPUL NEB PRN (10:54)
[2016-12-25] MEDS ORDERED: NORMAL SALINE 1000 ML 1,000 ML IV PRN (11:01)
[2016-12-25] MEDS ORDERED: ONDANSETRON HCL INJ/PF 4 MG/2 ML SDV IV PRN (11:01)
[2016-12-25] MEDS ORDERED: MAGNESIUM HYDROXIDE SUSP 30 ML UDCUP PO PRN (11:01)
--- NOTE | 2016-12-25 11:46 | PDOC H&P ---
History of Present Illness Admission Date/PCP: 12/25/16 10:30 THAIS EDUARDO MD Patient complains of: confusion History of Present Illness: JOSE ANGEL FINCH is a 71 year old female who returns from halfway facility after just one night due to worsening confusion leading to combativeness. Her son reports she arrived at [facility] yesterday in good spirits but started to decline as night set in. This morning she is very tangential with random thoughts and pressured speech, she becomes easily agitated at times because she cannot remember the word she is trying to say and lashes out at those around her. Ironically she is able to identify where she is and that she just came back from [facility] but doesn't remember me from yesterday and struggles to remember events surrounding her recent hospitalization. she was just admitted after fall resulting in femoral shaft fx requiring ORIF and intramedullary nailing by Dr Barry. [facility]. eval in the ED suggests a UTI as likely source of her confusion. She had bustamante catheter postop that was only removed yesterday due to her immobility and intermittent confusion. Her son, Cosmo who appears to be POA, reports that over the last year she has become easily confused with progressive ST memory loss but a formal evaluation and diagnosis of dementia has never been made. He also reports that she very clearly told him previously that she "did not want all those machines they used to keep your Dad alive", meaning she is DNR. Past Medical History Cardiac Medical History: Reports: Hypertension Pulmonary Medical History: Reports: Chronic Obstructive Pulmonary Disease (COPD) , Pneumonia - Admitted to [facility] about 3 months ago for pneumonia. Endocrine Medical History: Reports: Hyperthyroidism GI Medical History: Reports: Gastroesophageal Reflux Disease Musculoskeltal Medical History: Reports: Arthritis Psychiatric Medical History: Reports: Depression Past Surgical History Past Surgical History: Reports: Cholecystectomy, Hysterectomy, Orthopedic Surgery - L KNEE Social History Lives with: Long Term - rehab Smoking Status: Unknown if Ever Smoked Frequency of Alcohol Use: Rare Hx Recreational Drug Use: Yes Drugs: Marijuana Hx Prescription Drug Abuse: No - Advance Directive Resuscitation Status: Do Not Resuscitate Family History Family History: None, Reviewed & Not Pertinent Parental Family History Reviewed: Yes Children Family History Reviewed: Yes Sibling(s) Family History Reviewed.: Yes Medication/Allergy Home Medications: Cyclobenzaprine HCl [Flexeril 5 mg Tablet] 5 mg PO QHS 12/17/16 Lisinopril [Prinivil 2.5 mg Tablet] 2.5 mg PO QAM 12/17/16 Clopidogrel Bisulfate [Plavix 75 mg Tablet] 75 mg PO DAILY 12/18/16 Gabapentin 100 mg PO QHS 12/18/16 Omeprazole 20 mg PO DAILY 12/18/16 Venlafaxine HCl ER [Effexor Xr 75 mg Cap.sr] 75 mg PO DAILY 12/18/16 Acetaminophen [Tylenol 325 mg Tablet] 650 mg PO Q4HP PRN tablet 12/24/16 Ipratropium/Albuterol Sulfate [Duoneb 3 ml Ampul] 3 ml NEB RTQ6 vial.neb Metoprolol Tartrate [Lopressor 25 mg Tablet] 12.5 mg PO Q12 tablet 12/24/16 Nicotine [Nicoderm 21 mg/24 Hr Transderm Patch] 1 each TD DAILY patch.td24 Allergies/Adverse Reactions: Penicillins Allergy (Unknown, Verified 06/29/15 19:01) Rash Review of Systems ROS unobtainable: Due to mental status - cannot keep her on task long enough for a reliable ROS Physical Exam Vital Signs: Temp Pulse Resp BP Pulse Ox 98.1 F 31 L 18 114/67 100 12/25/16 07:45 12/25/16 09:40 12/25/16 09:40 12/25/16 09:40 12/25/16 09:40 General appearance: PRESENT: mild distress - emotional distress,easily agitated as noted in HPI, well-developed, well-nourished Head exam: PRESENT: atraumatic Eye exam: PRESENT: EOMI. ABSENT: scleral icterus Mouth exam: PRESENT: dry mucosa - beefy red tongue, very dry buccal mucosa Neck exam: PRESENT: full ROM. ABSENT: JVD, meningismus, tenderness Respiratory exam: PRESENT: clear to auscultation ta - though diminished, unlabored. ABSENT: accessory muscle use Cardiovascular exam: PRESENT: RRR. ABSENT: gallop, systolic murmur Pulses: PRESENT: normal radial pulses Vascular exam: PRESENT: normal capillary refill GI/Abdominal exam: PRESENT: normal bowel sounds, soft. ABSENT: tenderness Extremities exam: PRESENT: tenderness - over the surgical site with some eccymosis of the lateral thigh and overlying mild edema but no erythema or warmth; pain on ROM and has a very difficult time finding a comfortable position for her hip. ABSENT: calf tenderness, pedal edema Musculoskeletal exam: ABSENT: ambulatory, tenderness - no muscle tendernss to palp Neurological exam: PRESENT: alert, awake, oriented to person, oriented to place , reflexes normal. ABSENT: oriented to time, oriented to situation Psychiatric exam: PRESENT: anxious, other - paranoid - stating the nurses at [facility] were out to harm her but can't give specifics Skin exam: PRESENT: dry, warm Results Laboratory Results: labs reviewed and urine has findings suggestive of infection, cbc shows a leukocytosis and persistent anemia Impressions: Head CT 12/25/16 07:44 IMPRESSION: CHRONIC CHANGES OF ATROPHY AND MICROVASCULAR ISCHEMIA. OLD INFARCT IN THE LEFT FRONTAL LOBE. NO ACUTE PROCESS. Status: Image reviewed by me - agree with radiology Assessment & Plan - Diagnosis (1) Acute metabolic encephalopathy Is this a current diagnosis for this admission?: YesPlan: multifactorial with acute infectious process, pain from her hip fx, continued use of narcotics, volume depletion and likely component of chronic, underdiagnosed dementia. treat the underlying metabolic derangements, minimize narcotics if possible while also trying to manage her pain and hydrate with IVFs monitoring for response. (2) UTI (urinary tract infection), bacterial Is this a current diagnosis for this admission?: YesPlan: empiric rocephin for presumed CAUTI, follow up culture results and adjust abx accordingly (3) Sepsis Qualifiers: Sepsis type: sepsis due to unspecified organism Qualified Code(s): A41.9 - Sepsis, unspecified organism Is this a current diagnosis for this admission?: YesPlan: evidenced by tachycardia, leukocytosis and source; treat as above (4) Chronic hypoxemic respiratory failure Is this a current diagnosis for this admission?: YesPlan: continue home O2 at 3L/min and titrate as needed to keep sats 90-94%; prn nebs (5) COPD (chronic obstructive pulmonary disease) Qualifiers: COPD type: chronic bronchitis Chronic bronchitis type: simple Qualified Code(s): J41.0 - Simple chronic bronchitis Is this a current diagnosis for this admission?: YesPlan: as above (6) Chronic back pain Qualifiers: Back pain location: low back pain Back pain laterality: unspecified Sciatica presence: unspecified whether sciatica present Qualified Code( s): M54.5 - Low back pain; G89.29 - Other chronic pain Is this a current diagnosis for this admission?: YesPlan: narcotic dependent pain but with hx of prior admissions to hospital for over sedation and questionable misuse at home. (7) Intertrochanteric fracture of right femur Qualifiers: Encounter type: initial encounter Fracture type: closed Qualified Code(s): S72.141A - Displaced intertrochanteric fracture of right femur, initial encounter for closed fracture Is this a current diagnosis for this admission?: YesPlan: resume PT and continue analgesics prn as her conditoin will allow - Time Time Spent: Greater than 70 Minutes Anticipated discharge: SNF Within: within 72 hours - Inpatient Certification Based on my medical assessment, after consideration of the patient's comorbidities, presenting symptoms, or acuity I expect that the services needed warrant INPATIENT care.: Yes I certify that my determination is in accordance with my understanding of Medicare's requirements for reasonable and necessary INPATIENT services [42 CFR 412.3e].: Yes Medical Necessity: Significant Comorbidiites Make Outpatient Treatment Too Risky , Need For IV Fluids, Need for Pain Control, Need for IV Antibiotics
[2016-12-25] MEDS: LORAZEPAM INJ 2 MG/1 ML VIAL IV PRN (15:17)
[2016-12-25] MEDS ORDERED: CLOPIDOGREL BISULFATE 75 MG TABLET PO ONE (16:00)
[2016-12-25] MEDS ORDERED: NICOTINE 21 MG/24 HR PATCH.TD24 TD ONE (16:00)
[2016-12-25] MEDS ORDERED: METOPROLOL TARTRATE 25 MG TABLET PO ONE (16:00)
[2016-12-25] MEDS ORDERED: VENLAFAXINE HCL 75 MG CAP.SR.24H PO ONE (17:00)
[2016-12-25] MEDS: OXYCODONE-ACETAMINOPHEN 5-325 MG TABLET PO PRN ×2 (17:38→23:25)
[2016-12-25] MEDS: GABAPENTIN 100 MG CAPSULE PO SCH (21:39)
[2016-12-25] MEDS: FAMOTIDINE 20 MG TABLET PO SCH (21:39)
[2016-12-25] MEDS: MORPHINE SULFATE 10 MG/ML INJ IV PRN (21:39)
[2016-12-25] MEDS: HALOPERIDOL LACTATE INJ 5 MG/1 ML VIAL IV PRN (23:25)
[2016-12-26] MEDS: LORAZEPAM INJ 2 MG/1 ML VIAL IV PRN (04:42)
[2016-12-26 05:20] LABS: ABSOLUTE BASOPHILS # (AUTO) 0.1 10^3/uL (0.0-0.2); ABSOLUTE EOSINOPHILS # (AUTO) 0.1 10^3/uL (0.0-0.6); ABSOLUTE LYMPHOCYTES (AUTO) 2.1 10^3/uL (0.5-4.7); ABSOLUTE MONOCYTES (AUTO) 1.1 10^3/uL (0.1-1.4); ABSOLUTE NEUT (AUTO) 6.9 10^3/uL (1.7-8.2); BASOPHILS % (AUTO) 0.8 % (0-2); EOSINOPHILS % (AUTO) 1.1 % (0-6); HEMATOCRIT 26.8 % (36.0-47.0); HEMOGLOBIN 8.7 g/dL (12.0-15.5); HGB HCT DIFFERENCE -0.7; LYMPHOCYTES % (AUTO) 20.7 % (13-45); MEAN CORPUSCULAR HEMOGLOBIN 27.1 pg (27.0-33.4); MEAN CORPUSCULAR HGB CONC 32.4 g/dL (32.0-36.0); MEAN CORPUSCULAR VOLUME 84 fl (80-97); MONOCYTES % (AUTO) 10.5 % (3-13); RED BLOOD COUNT 3.19 10^6/uL (3.72-5.28); RED CELL DISTRIBUTION WIDTH 14.7 % (11.5-14.0); SEGMENTED NEUTROPHILS % (AUTO) 66.9 % (42-78); WHITE BLOOD COUNT 10.2 10^3/uL (4.0-10.5)
[2016-12-26 05:32] LABS: ANION GAP 7 (5-19); BLOOD UREA NITROGEN 13 mg/dL (7-20); CALCIUM 9.9 mg/dL (8.4-10.2); CARBON DIOXIDE 26 mmol/L (22-30); CHLORIDE 103 mmol/L (98-107); CREATININE RESULT 0.55 mg/dL (0.52-1.25); GLUCOSE 109 mg/dL (75-110); MAGNESIUM 1.4 mg/dL (1.6-2.3); PHOSPHORUS 4.5 mg/dL (2.5-4.5); POTASSIUM 4.4 mmol/L (3.6-5.0); SODIUM 135.5 mmol/L (137-145)
[2016-12-26] MEDS: ENOXAPARIN SODIUM INJ 40 MG/0.4 ML DISP.SYRIN SUBCUT SCH (08:24)
[2016-12-26] MEDS: CLOPIDOGREL BISULFATE 75 MG TABLET PO SCH (09:59)
[2016-12-26] MEDS: FAMOTIDINE 20 MG TABLET PO SCH ×2 (09:59→21:25)
[2016-12-26] MEDS: DOCUSATE SODIUM 100 MG CAPSULE PO SCH (09:59)
[2016-12-26] MEDS: VENLAFAXINE HCL 75 MG CAP.SR.24H PO SCH (09:59)
[2016-12-26] MEDS: NICOTINE 21 MG/24 HR PATCH.TD24 TD SCH (09:59)
[2016-12-26] MEDS: METOPROLOL TARTRATE 25 MG TABLET PO SCH ×2 (10:00→21:25)
[2016-12-26] MEDS: CEFTRIAXONE 1 GM/D5W RTU 50 ML IV SCH (10:01)
--- NOTE | 2016-12-26 10:44 | PDOC PROGRESS REPORT ---
Subjective Progress Note for:: 12/26/16 Subjective:: reason for visit: f/u UTI, encephalopathy, dementia hospital course: JOSE ANGEL FINCH is a 71 year old female who returns from residential facility after just one night due to worsening confusion leading to combativeness. Her son reports she arrived at [facility] yesterday in good spirits but started to decline as night set in. This morning she is very tangential with random thoughts and pressured speech, she becomes easily agitated at times because she cannot remember the word she is trying to say and lashes out at those around her. Ironically she is able to identify where she is and that she just came back from [facility] but doesn't remember me from yesterday and struggles to remember events surrounding her recent hospitalization. she was just admitted after fall resulting in femoral shaft fx requiring ORIF and intramedullary nailing by Dr Barry. Her PCP is Dr Garcia at [facility]. eval in the ED suggests a UTI as likely source of her confusion. She had bustamante catheter postop that was only removed yesterday due to her immobility and intermittent confusion. Her son, Cosmo who appears to be POA, reports that over the last year she has become easily confused with progressive ST memory loss but a formal evaluation and diagnosis of dementia has never been made. He also reports that she very clearly told him previously that she "did not want all those machines they used to keep your Dad alive", meaning she is DNR. she is improved but not back to baseline, still confused easily agitated and tangential in her thinking. ROS: unreliable due to pt's mental state. Physical Exam Vital Signs: Temp Pulse Resp BP Pulse Ox 98.3 F 85 17 140/63 H 99 12/26/16 07:03 12/26/16 07:03 12/26/16 07:03 12/26/16 07:03 12/26/16 07:03 Intake & Output 12/25/16 12/26/16 12/27/16 06:59 06:59 06:59 Intake Total 730 120 Balance 730 120 Weight 73.7 kg General appearance: PRESENT: no acute distress, well-developed, well-nourished Head exam: PRESENT: atraumatic, normocephalic Eye exam: ABSENT: conjunctival injection, scleral icterus Mouth exam: PRESENT: moist, neck supple Neck exam: PRESENT: full ROM. ABSENT: JVD Respiratory exam: PRESENT: clear to auscultation ta. ABSENT: accessory muscle use, unlabored Cardiovascular exam: PRESENT: RRR. ABSENT: systolic murmur Pulses: PRESENT: normal radial pulses Vascular exam: PRESENT: normal capillary refill GI/Abdominal exam: PRESENT: normal bowel sounds, soft. ABSENT: rebound, rigid, tenderness Extremities exam: PRESENT: tenderness - over the surgical site with some eccymosis of the lateral thigh and overlying mild edema but no erythema or warmth; pain on ROM. ABSENT: joint swelling Neurological exam: PRESENT: alert, awake, oriented to person, oriented to place Psychiatric exam: PRESENT: anxious, flat affect Skin exam: PRESENT: dry, warm Results Laboratory Results: 12/26/16 05:06 12/26/16 05:06 12/26/16 12/26/16 05:06 05:06 WBC 10.2 RBC 3.19 L Hgb 8.7 L Hct 26.8 L MCV 84 MCH 27.1 MCHC 32.4 RDW 14.7 H Plt Count 213 Seg Neutrophils % 66.9 Lymphocytes % 20.7 Monocytes % 10.5 Eosinophils % 1.1 Basophils % 0.8 Absolute Neutrophils 6.9 Absolute Lymphocytes 2.1 Absolute Monocytes 1.1 Absolute Eosinophils 0.1 Absolute Basophils 0.1 Sodium 135.5 L Potassium 4.4 Chloride 103 Carbon Dioxide 26 Anion Gap 7 BUN 13 Creatinine 0.55 Est GFR ( Amer) > 60 Est GFR (Non-Af Amer) > 60 Glucose 109 Calcium 9.9 Phosphorus 4.5 Magnesium 1.4 L Impressions: Head CT 12/25/16 07:44 IMPRESSION: CHRONIC CHANGES OF ATROPHY AND MICROVASCULAR ISCHEMIA. OLD INFARCT IN THE LEFT FRONTAL LOBE. NO ACUTE PROCESS. Chest X-Ray 12/25/16 11:02 IMPRESSION: CHRONIC INTERSTITIAL CHANGES. POSSIBLE ATELECTASIS OR EARLY INFILTRATE IN THE RIGHT UPPER LOBE. Assessment & Plan - Diagnosis (1) Acute metabolic encephalopathy Is this a current diagnosis for this admission?: YesPlan: multifactorial with acute infectious process, pain from her hip fx, continued use of narcotics, volume depletion and likely component of chronic, underdiagnosed dementia. continue to treat the underlying metabolic derangements, minimize narcotics if possible while also trying to manage her pain and hydrate with IVFs. continue monitoring for response. (2) UTI (urinary tract infection), bacterial Is this a current diagnosis for this admission?: YesPlan: stable; empiric rocephin for presumed CAUTI, follow up culture results and adjust abx accordingly (3) Sepsis Qualifiers: Sepsis type: sepsis due to unspecified organism Qualified Code(s): A41.9 - Sepsis, unspecified organism Is this a current diagnosis for this admission?: YesPlan: improved; evidenced by tachycardia, leukocytosis and source; treat as above (4) Chronic hypoxemic respiratory failure Is this a current diagnosis for this admission?: YesPlan: stable; continue home O2 at 3L/min and titrate as needed to keep sats 90-94%; prn nebs (5) COPD (chronic obstructive pulmonary disease) Qualifiers: COPD type: chronic bronchitis Chronic bronchitis type: simple Qualified Code(s): J41.0 - Simple chronic bronchitis Is this a current diagnosis for this admission?: Yes (6) Chronic back pain Qualifiers: Back pain location: low back pain Back pain laterality: unspecified Sciatica presence: unspecified whether sciatica present Qualified Code( s): M54.5 - Low back pain; G89.29 - Other chronic pain Is this a current diagnosis for this admission?: Yes (7) Intertrochanteric fracture of right femur Qualifiers: Encounter type: initial encounter Fracture type: closed Qualified Code(s): S72.141A - Displaced intertrochanteric fracture of right femur, initial encounter for closed fracture Is this a current diagnosis for this admission?: YesPlan: resume PT and continue analgesics prn as her conditoin will allow; d/w'd with dr barry who said is weight bearing as tolerated - Time Time Spent with patient: 25-34 minutes Medications reviewed and adjusted accordingly: Yes Anticipated discharge: Acute Rehab Within: within 72 hours
[2016-12-26] MEDS: MAGNESIUM SULFATE/D5W 1 GM/100 ML RTUPB IV SCH ×3 (11:21→14:34)
[2016-12-26] MEDS: OXYCODONE-ACETAMINOPHEN 5-325 MG TABLET PO PRN ×2 (16:57→21:26)
[2016-12-26] MEDS: MORPHINE SULFATE 10 MG/ML INJ IV PRN ×2 (18:01→23:03)
[2016-12-26] MEDS: GABAPENTIN 100 MG CAPSULE PO SCH (21:25)
[2016-12-27] MEDS: OXYCODONE-ACETAMINOPHEN 5-325 MG TABLET PO PRN ×4 (05:22→21:19)
[2016-12-27 05:28] LABS: HEMOGLOBIN 9.5 g/dL (12.0-15.5); HGB HCT DIFFERENCE -0.5; MEAN CORPUSCULAR HEMOGLOBIN 27.5 pg (27.0-33.4); MEAN CORPUSCULAR HGB CONC 32.8 g/dL (32.0-36.0); MEAN CORPUSCULAR VOLUME 84 fl (80-97); RED BLOOD COUNT 3.46 10^6/uL (3.72-5.28); WHITE BLOOD COUNT 9.8 10^3/uL (4.0-10.5)
[2016-12-27 05:43] LABS: ANION GAP 11 (5-19); BLOOD UREA NITROGEN 11 mg/dL (7-20); CARBON DIOXIDE 24 mmol/L (22-30); CHLORIDE 101 mmol/L (98-107); CREATININE RESULT 0.57 mg/dL (0.52-1.25); GLUCOSE 139 mg/dL (75-110); POTASSIUM 4.3 mmol/L (3.6-5.0); SODIUM 136.4 mmol/L (137-145)
[2016-12-27 05:56] LABS: BASOPHILS % (MANUAL) 0 % (0-2); EOSINOPHILS % (MANUAL) 1 % (0-6); LYMPHOCYTES % (MANUAL) 24 % (13-45); TOTAL CELLS COUNTED 100
[2016-12-27 05:59] LABS: ANISOCYTOSIS SLIGHT; OVALOCYTES SLIGHT; PLATELET CLUMPS PRESENT; POIKILOCYTOSIS SLIGHT; POLYCHROMASIA 1+; TEAR DROP CELLS 1+
[2016-12-27] MEDS: ENOXAPARIN SODIUM INJ 40 MG/0.4 ML DISP.SYRIN SUBCUT SCH (08:41)
--- NOTE | 2016-12-27 11:03 | PDOC PROGRESS REPORT ---
Subjective Progress Note for:: 12/27/16 Subjective:: reason for visit: f/u UTI, encephalopathy, dementia hospital course: JOSE ANGEL FINCH is a 71 year old female who returns from retirement facility after just one night due to worsening confusion leading to combativeness. Her son reports she arrived at [facility] yesterday in good spirits but started to decline as night set in. This morning she is very tangential with random thoughts and pressured speech, she becomes easily agitated at times because she cannot remember the word she is trying to say and lashes out at those around her. Ironically she is able to identify where she is and that she just came back from [facility] but doesn't remember me from yesterday and struggles to remember events surrounding her recent hospitalization. she was just admitted after fall resulting in femoral shaft fx requiring ORIF and intramedullary nailing by Dr Barry. Her PCP is Dr Garcia at [facility]. eval in the ED suggests a UTI as likely source of her confusion. She had bustamante catheter postop that was only removed yesterday due to her immobility and intermittent confusion. Her son, Cosmo who appears to be POA, reports that over the last year she has become easily confused with progressive ST memory loss but a formal evaluation and diagnosis of dementia has never been made. He also reports that she very clearly told him previously that she "did not want all those machines they used to keep your Dad alive", meaning she is DNR. she is improved but not back to baseline, still confused easily agitated and tangential in her thinking. ROS: unreliable due to pt's mental state. Physical Exam Vital Signs: Temp Pulse Resp BP Pulse Ox 98.3 F 98 20 112/90 H 93 12/27/16 08:25 12/27/16 08:25 12/27/16 08:25 12/27/16 08:25 12/27/16 08:25 Intake & Output 12/26/16 12/27/16 12/28/16 06:59 06:59 06:59 Intake Total 730 1270 Output Total 300 Balance 730 970 Weight 73.7 kg 73.6 kg General appearance: PRESENT: no acute distress, well-developed, well-nourished Eye exam: PRESENT: EOMI. ABSENT: conjunctival injection, scleral icterus Mouth exam: PRESENT: moist, neck supple Neck exam: PRESENT: full ROM. ABSENT: JVD Respiratory exam: PRESENT: clear to auscultation ta. ABSENT: accessory muscle use, unlabored Cardiovascular exam: PRESENT: RRR. ABSENT: systolic murmur Pulses: PRESENT: normal radial pulses, normal dorsalis pedis pul GI/Abdominal exam: PRESENT: normal bowel sounds, soft. ABSENT: tenderness Extremities exam: PRESENT: full ROM. ABSENT: calf tenderness, pedal edema Neurological exam: PRESENT: alert, awake, oriented to person, oriented to place Psychiatric exam: PRESENT: appropriate affect, normal mood Skin exam: PRESENT: warm, other - tenderness over the surgical site with some eccymosis of the lateral thigh and overlying mild edema but no erythema or warmth; pain on ROM. Results Laboratory Results: 12/27/16 05:19 12/27/16 05:19 12/27/16 12/27/16 05:19 05:19 WBC 9.8 RBC 3.46 L Hgb 9.5 L Hct 29.0 L MCV 84 MCH 27.5 MCHC 32.8 RDW 15.0 H Plt Count 308 Seg Neutrophils % Not Reportable Lymphocytes % Not Reportable Monocytes % Not Reportable Eosinophils % Not Reportable Basophils % Not Reportable Absolute Neutrophils Not Reportable Absolute Lymphocytes Not Reportable Absolute Monocytes Not Reportable Absolute Eosinophils Not Reportable Absolute Basophils Not Reportable Sodium 136.4 L Potassium 4.3 Chloride 101 Carbon Dioxide 24 Anion Gap 11 BUN 11 Creatinine 0.57 Est GFR ( Amer) > 60 Est GFR (Non-Af Amer) > 60 Glucose 139 H Calcium 10.0 Magnesium 2.0 Assessment & Plan - Diagnosis (1) Acute metabolic encephalopathy Is this a current diagnosis for this admission?: YesPlan: improved but not back to baseline; continue current care and monitoring (2) UTI (urinary tract infection), bacterial Is this a current diagnosis for this admission?: YesPlan: improved but not back to baseline; 100K CFUs of GNR as yet not identified, continue empiric rocephin (3) Sepsis Qualifiers: Sepsis type: sepsis due to unspecified organism Qualified Code(s): A41.9 - Sepsis, unspecified organism Is this a current diagnosis for this admission?: YesPlan: improved but not back to baseline; continue current care (4) Chronic hypoxemic respiratory failure Is this a current diagnosis for this admission?: Yes (5) COPD (chronic obstructive pulmonary disease) Qualifiers: COPD type: chronic bronchitis Chronic bronchitis type: simple Qualified Code(s): J41.0 - Simple chronic bronchitis Is this a current diagnosis for this admission?: Yes (6) Chronic back pain Qualifiers: Back pain location: low back pain Back pain laterality: unspecified Sciatica presence: unspecified whether sciatica present Qualified Code( s): M54.5 - Low back pain; G89.29 - Other chronic pain Is this a current diagnosis for this admission?: Yes (7) Intertrochanteric fracture of right femur Qualifiers: Encounter type: initial encounter Fracture type: closed Qualified Code(s): S72.141A - Displaced intertrochanteric fracture of right femur, initial encounter for closed fracture Is this a current diagnosis for this admission?: YesPlan: resume PT and continue analgesics prn as her conditoin will allow; d/w'd with dr barry who said is weight bearing as tolerated - Time Time Spent with patient: 25-34 minutes Medications reviewed and adjusted accordingly: Yes Anticipated discharge: Acute Rehab Within: within 24 hours
[2016-12-27] MEDS: NICOTINE 21 MG/24 HR PATCH.TD24 TD SCH (11:23)
[2016-12-27] MEDS: CEFTRIAXONE 1 GM/D5W RTU 50 ML IV SCH (11:23)
[2016-12-27] MEDS: METOPROLOL TARTRATE 25 MG TABLET PO SCH ×2 (11:24→21:19)
[2016-12-27] MEDS: VENLAFAXINE HCL 75 MG CAP.SR.24H PO SCH (11:25)
[2016-12-27] MEDS: CLOPIDOGREL BISULFATE 75 MG TABLET PO SCH (11:25)
[2016-12-27] MEDS: DOCUSATE SODIUM 100 MG CAPSULE PO SCH (11:25)
[2016-12-27] MEDS: FAMOTIDINE 20 MG TABLET PO SCH ×2 (11:26→21:19)
[2016-12-27] MEDS: MORPHINE SULFATE 10 MG/ML INJ IV PRN ×2 (18:56→23:20)
[2016-12-27] MEDS: GABAPENTIN 100 MG CAPSULE PO SCH (21:19)
[2016-12-27] MEDS: LORAZEPAM INJ 2 MG/1 ML VIAL IV PRN (22:11)
[2016-12-28] MEDS: ACETAMINOPHEN 325 MG TABLET PO PRN (00:59)
[2016-12-28] MEDS: ENOXAPARIN SODIUM INJ 40 MG/0.4 ML DISP.SYRIN SUBCUT SCH (08:56)
[2016-12-28] MEDS: CEFTRIAXONE 1 GM/D5W RTU 50 ML IV SCH (09:01)
[2016-12-28] MEDS: DOCUSATE SODIUM 100 MG CAPSULE PO SCH (09:02)
[2016-12-28] MEDS: CLOPIDOGREL BISULFATE 75 MG TABLET PO SCH (09:02)
[2016-12-28] MEDS: FAMOTIDINE 20 MG TABLET PO SCH ×2 (09:02→21:03)
[2016-12-28] MEDS: METOPROLOL TARTRATE 25 MG TABLET PO SCH ×2 (09:02→21:03)
[2016-12-28] MEDS: NICOTINE 21 MG/24 HR PATCH.TD24 TD SCH (09:04)
[2016-12-28] MEDS: VENLAFAXINE HCL 75 MG CAP.SR.24H PO SCH (09:04)
--- NOTE | 2016-12-28 10:58 | PDOC PROGRESS REPORT ---
Subjective Progress Note for:: 12/28/16 Subjective:: reason for visit: f/u UTI, encephalopathy, dementia hospital course: JOSE ANGEL FINCH is a 71 year old female who returns from halfway facility after just one night due to worsening confusion leading to combativeness. Her son reports she arrived at [facility] yesterday in good spirits but started to decline as night set in. This morning she is very tangential with random thoughts and pressured speech, she becomes easily agitated at times because she cannot remember the word she is trying to say and lashes out at those around her. Ironically she is able to identify where she is and that she just came back from [facility] but doesn't remember me from yesterday and struggles to remember events surrounding her recent hospitalization. she was just admitted after fall resulting in femoral shaft fx requiring ORIF and intramedullary nailing by Dr Barry. Her PCP is Dr Garcia at [facility]. eval in the ED suggests a UTI as likely source of her confusion. She had bustamante catheter postop that was only removed yesterday due to her immobility and intermittent confusion. Culture grew E Coli and she is on adequate abx, tolerating rocephin and can likely switch to oral ceph in near future. Her son , Cosmo who appears to be POA, reports that over the last year she has become easily confused with progressive ST memory loss but a formal evaluation and diagnosis of dementia has never been made. He also reports that she very clearly told him previously that she "did not want all those machines they used to keep your Dad alive", meaning she is DNR. she is improved but not back to baseline, still confused, easily agitated and tangential in her thinking. She is adamant about not going back to [facility] though. care coordinators seeking other rehab options, she remains too unsteady on her feet and not fully recovered from her hip repair. ROS: unreliable due to pt's mental state. Physical Exam Vital Signs: Temp Pulse Resp BP Pulse Ox 97.9 F 101 H 20 114/65 98 12/28/16 08:00 12/28/16 08:00 12/28/16 08:00 12/28/16 08:00 12/28/16 08:00 Intake & Output 12/27/16 12/28/16 12/29/16 06:59 06:59 06:59 Intake Total 1270 1260 Output Total 300 1950 Balance 970 -690 Weight 73.6 kg 74.9 kg General appearance: PRESENT: no acute distress, well-developed, well-nourished Head exam: PRESENT: atraumatic, normocephalic Eye exam: ABSENT: conjunctival injection, scleral icterus Mouth exam: PRESENT: moist, neck supple Neck exam: PRESENT: full ROM. ABSENT: JVD Respiratory exam: PRESENT: clear to auscultation ta, unlabored. ABSENT: accessory muscle use Cardiovascular exam: PRESENT: RRR, tachycardia Pulses: PRESENT: normal radial pulses, normal dorsalis pedis pul GI/Abdominal exam: PRESENT: normal bowel sounds, soft. ABSENT: tenderness Extremities exam: ABSENT: calf tenderness, pedal edema, tenderness Musculoskeletal exam: ABSENT: full ROM - limited Rt hip due to stiffness and pain with full extension Neurological exam: PRESENT: alert, awake, oriented to person, oriented to place. ABSENT: oriented to time, oriented to situation Psychiatric exam: PRESENT: appropriate affect, normal mood Focused psych exam: PRESENT: paranoid Skin exam: PRESENT: other - ecchymosis as before about the repaired hip and thigh, resolving. ABSENT: erythema Results Laboratory Results: 12/27/16 05:19 12/27/16 05:19 Impressions: Head CT 12/25/16 07:44 IMPRESSION: CHRONIC CHANGES OF ATROPHY AND MICROVASCULAR ISCHEMIA. OLD INFARCT IN THE LEFT FRONTAL LOBE. NO ACUTE PROCESS. Chest X-Ray 12/25/16 11:02 IMPRESSION: CHRONIC INTERSTITIAL CHANGES. POSSIBLE ATELECTASIS OR EARLY INFILTRATE IN THE RIGHT UPPER LOBE. Assessment & Plan - Diagnosis (1) Acute metabolic encephalopathy Is this a current diagnosis for this admission?: YesPlan: improved but not back to baseline; continue current care and monitoring (2) UTI (urinary tract infection), bacterial Is this a current diagnosis for this admission?: YesPlan: improved but not back to baseline; 100K CFUs of Ecoli res to PCN and FQs, continue empiric rocephin (3) Sepsis Qualifiers: Sepsis type: sepsis due to unspecified organism Qualified Code(s): A41.9 - Sepsis, unspecified organism Is this a current diagnosis for this admission?: YesPlan: resolved; continue current care (4) Chronic hypoxemic respiratory failure Is this a current diagnosis for this admission?: YesPlan: stable; continue home O2 at 3L/min and titrate as needed to keep sats 90-94%, her confusion will worsen without doing so; prn nebs (5) COPD (chronic obstructive pulmonary disease) Qualifiers: COPD type: chronic bronchitis Chronic bronchitis type: simple Qualified Code(s): J41.0 - Simple chronic bronchitis Is this a current diagnosis for this admission?: Yes (6) Chronic back pain Qualifiers: Back pain location: low back pain Back pain laterality: unspecified Sciatica presence: unspecified whether sciatica present Qualified Code( s): M54.5 - Low back pain; G89.29 - Other chronic pain Is this a current diagnosis for this admission?: Yes (7) Intertrochanteric fracture of right femur Qualifiers: Encounter type: initial encounter Fracture type: closed Qualified Code(s): S72.141A - Displaced intertrochanteric fracture of right femur, initial encounter for closed fracture Is this a current diagnosis for this admission?: YesPlan: continue PT and continue analgesics prn as her conditoin will allow; d/w'd with dr barry who said weight bearing as tolerated - Time Time Spent with patient: 25-34 minutes Anticipated discharge: Acute Rehab Within: within 24 hours - Plan Summary Plan Summary: stable for discharge to suitable facility pending bed offer
[2016-12-28] MEDS: OXYCODONE-ACETAMINOPHEN 5-325 MG TABLET PO PRN ×2 (15:30→21:03)
[2016-12-28] MEDS: GABAPENTIN 100 MG CAPSULE PO SCH (21:03)
[2016-12-28] MEDS: MORPHINE SULFATE 10 MG/ML INJ IV PRN (23:11)
[2016-12-29] MEDS: LORAZEPAM INJ 2 MG/1 ML VIAL IV PRN ×2 (00:50→22:06)
[2016-12-29] MEDS: MORPHINE SULFATE 10 MG/ML INJ IV PRN ×4 (04:25→22:58)
--- NOTE | 2016-12-29 08:42 | RADIOLOGY REPORT (SQ) ---
EXAM DESCRIPTION: HIP BILATERAL COMPLETED DATE/TIME: 12/29/2016 7:54 am REASON FOR STUDY: Pt Fall COMPARISON: None. NUMBER OF VIEWS: Three views TECHNIQUE: AP pelvis and additional frog-leg view of both hips. LIMITATIONS: None. FINDINGS: MINERALIZATION: Normal. HIPS: No acute fracture or dislocation. No worrisome bone lesions. Patient is status post right hip pinning. PELVIS AND SACRUM: No acute fracture or dislocation. No worrisome bone lesions. PUBIS AND ISCHIUM: No acute fracture. LOWER LUMBAR SPINE: No significant findings as visualized. SOFT TISSUES: No findings. OTHER: No other significant finding. IMPRESSION: No acute fracture or dislocation. Patient is status post right hip pinning. TECHNICAL DOCUMENTATION: JOB ID: [id number] All Rights Reserved
[2016-12-29] MEDS: ENOXAPARIN SODIUM INJ 40 MG/0.4 ML DISP.SYRIN SUBCUT SCH (11:10)
[2016-12-29] MEDS: METOPROLOL TARTRATE 25 MG TABLET PO SCH ×2 (11:10→22:05)
[2016-12-29] MEDS: NICOTINE 21 MG/24 HR PATCH.TD24 TD SCH (11:11)
[2016-12-29] MEDS: CLOPIDOGREL BISULFATE 75 MG TABLET PO SCH (11:13)
[2016-12-29] MEDS: FAMOTIDINE 20 MG TABLET PO SCH ×2 (11:13→22:05)
[2016-12-29] MEDS: CEFTRIAXONE 1 GM/D5W RTU 50 ML IV SCH (11:13)
[2016-12-29] MEDS: VENLAFAXINE HCL 75 MG CAP.SR.24H PO SCH (11:13)
[2016-12-29] MEDS: DOCUSATE SODIUM 100 MG CAPSULE PO SCH (11:14)
[2016-12-29] MEDS: ACETAMINOPHEN 325 MG TABLET PO PRN (12:29)
--- NOTE | 2016-12-29 17:12 | PDOC PROGRESS REPORT ---
Subjective Progress Note for:: 12/29/16 Subjective:: JOSE ANGEL FINCH is a 71 year old female who returns from long-term facility on 12/25/2016 after just one night due to worsening confusion leading to combativeness. Her son reports she arrived at [facility] yesterday in good spirits but started to decline as night set in. This morning she is very tangential with random thoughts and pressured speech, she becomes easily agitated at times because she cannot remember the word she is trying to say and lashes out at those around her. Ironically she is able to identify where she is and that she just came back from [facility] but doesn't remember me from yesterday and struggles to remember events surrounding her recent hospitalization. she was just admitted after fall resulting in femoral shaft fx requiring ORIF and intramedullary nailing by Dr Barry. Her PCP is Dr aGrcia at [facility]. Eval in the ED suggests a UTI as likely source of her confusion. She had bustamante catheter postop that was only removed yesterday due to her immobility and intermittent confusion. Culture grew E Coli and she is on adequate abx, tolerating rocephin and can likely switch to oral ceph in near future. Her son , Cosmo who appears to be POA, reports that over the last year she has become easily confused with progressive ST memory loss but a formal evaluation and diagnosis of dementia has never been made. He also reports that she very clearly told him previously that she "did not want all those machines they used to keep your Dad alive", meaning she is DNR. She is improved but not back to baseline, still confused, easily agitated and tangential in her thinking. She is adamant about not going back to [facility] though. Care coordinators seeking other rehab options, she remains too unsteady on her feet and not fully recovered from her hip repair. Today she is sleepy, and remains confused. Physical Exam Vital Signs: Temp Pulse Resp BP Pulse Ox 97.5 F 98 16 111/64 96 12/29/16 15:09 12/29/16 15:09 12/29/16 15:09 12/29/16 15:09 12/29/16 15:09 Intake & Output 12/28/16 12/29/16 12/30/16 06:59 06:59 06:59 Intake Total 1260 2130 0 Output Total 1950 2400 Balance -690 -270 0 Weight 74.9 kg 73.6 kg Additional comments: General appearance: PRESENT: no acute distress, well-developed, well-nourished Head exam: PRESENT: atraumatic, normocephalic Eye exam: ABSENT: conjunctival injection, scleral icterus Mouth exam: PRESENT: moist, neck supple Neck exam: PRESENT: full ROM. ABSENT: JVD Respiratory exam: PRESENT: clear to auscultation ta, unlabored. ABSENT: accessory muscle use Cardiovascular exam: PRESENT: RRR, tachycardia Pulses: PRESENT: normal radial pulses, normal dorsalis pedis pul GI/Abdominal exam: PRESENT: normal bowel sounds, soft. ABSENT: tenderness Extremities exam: ABSENT: calf tenderness, pedal edema, tenderness Musculoskeletal exam: ABSENT: full ROM - limited Rt hip due to stiffness and pain with full extension Neurological exam: PRESENT: alert, awake, oriented to person, oriented to place. ABSENT: oriented to time, oriented to situation Psychiatric exam: PRESENT: appropriate affect, normal mood Focused psych exam: PRESENT: paranoid Skin exam: PRESENT: other - ecchymosis as before about the repaired hip and thigh, resolving. ABSENT: erythema Results Laboratory Results: 12/27/16 05:19 12/27/16 05:19 Impressions: Head CT 12/25/16 07:44 IMPRESSION: CHRONIC CHANGES OF ATROPHY AND MICROVASCULAR ISCHEMIA. OLD INFARCT IN THE LEFT FRONTAL LOBE. NO ACUTE PROCESS. Chest X-Ray 12/25/16 11:02 IMPRESSION: CHRONIC INTERSTITIAL CHANGES. POSSIBLE ATELECTASIS OR EARLY INFILTRATE IN THE RIGHT UPPER LOBE. Hip X-Ray 12/29/16 00:00 IMPRESSION: No acute fracture or dislocation. Patient is status post right hip pinning. Assessment & Plan - Diagnosis (1) Acute metabolic encephalopathy Is this a current diagnosis for this admission?: YesPlan: This is reportedly improved but not back to baseline. I am suspicious of some degree of underlying chronic dementia. (2) UTI (urinary tract infection), bacterial Is this a current diagnosis for this admission?: YesPlan: Continue Rocephin yesterday. Will recheck WBC tomorrow morning. Will consider switching to oral therapy tomorrow. (3) Dementia Qualifiers: Dementia type: unspecified type Is this a current diagnosis for this admission?: YesPlan: The patient was admitted with altered mental status and urinary tract infection , but there is history of a more persistent dementing illness. (4) Chronic hypoxemic respiratory failure Is this a current diagnosis for this admission?: YesPlan: Continue oxygen supplementation as needed. (5) COPD (chronic obstructive pulmonary disease) Qualifiers: COPD type: chronic bronchitis Chronic bronchitis type: simple Qualified Code(s): J41.0 - Simple chronic bronchitis Is this a current diagnosis for this admission?: Yes (6) Chronic back pain Qualifiers: Back pain location: low back pain Back pain laterality: unspecified Sciatica presence: unspecified whether sciatica present Qualified Code( s): M54.5 - Low back pain; G89.29 - Other chronic pain Is this a current diagnosis for this admission?: Yes (7) Intertrochanteric fracture of right femur Qualifiers: Encounter type: initial encounter Fracture type: closed Qualified Code(s): S72.141A - Displaced intertrochanteric fracture of right femur, initial encounter for closed fracture Is this a current diagnosis for this admission?: YesPlan: Status post recent hip fracture and ORIF. Continue rehabilitation therapies.
[2016-12-29] MEDS: OXYCODONE-ACETAMINOPHEN 5-325 MG TABLET PO PRN (20:41)
[2016-12-29] MEDS: GABAPENTIN 100 MG CAPSULE PO SCH (22:05)
[2016-12-30] MEDS: HALOPERIDOL LACTATE INJ 5 MG/1 ML VIAL IV PRN ×2 (00:03→21:24)
[2016-12-30 07:38] LABS: ABSOLUTE BASOPHILS # (AUTO) 0.1 10^3/uL (0.0-0.2); ABSOLUTE EOSINOPHILS # (AUTO) 0.3 10^3/uL (0.0-0.6); ABSOLUTE LYMPHOCYTES (AUTO) 2.6 10^3/uL (0.5-4.7); ABSOLUTE NEUT (AUTO) 4.8 10^3/uL (1.7-8.2); BASOPHILS % (AUTO) 1.1 % (0-2); EOSINOPHILS % (AUTO) 3.1 % (0-6); HEMATOCRIT 27.6 % (36.0-47.0); HEMOGLOBIN 8.8 g/dL (12.0-15.5); HGB HCT DIFFERENCE -1.2; MEAN CORPUSCULAR HEMOGLOBIN 27.3 pg (27.0-33.4); MEAN CORPUSCULAR HGB CONC 31.9 g/dL (32.0-36.0); MEAN CORPUSCULAR VOLUME 86 fl (80-97); MONOCYTES % (AUTO) 11.5 % (3-13); RED BLOOD COUNT 3.23 10^6/uL (3.72-5.28); RED CELL DISTRIBUTION WIDTH 15.6 % (11.5-14.0); SEGMENTED NEUTROPHILS % (AUTO) 54.3 % (42-78); WHITE BLOOD COUNT 8.8 10^3/uL (4.0-10.5)
[2016-12-30 07:55] LABS: ANION GAP 9 (5-19); BLOOD UREA NITROGEN 9 mg/dL (7-20); CALCIUM 9.8 mg/dL (8.4-10.2); CARBON DIOXIDE 27 mmol/L (22-30); CHLORIDE 103 mmol/L (98-107); GLUCOSE 93 mg/dL (75-110); POTASSIUM 4.4 mmol/L (3.6-5.0); SODIUM 139.1 mmol/L (137-145)
[2016-12-30] MEDS: DOCUSATE SODIUM 100 MG CAPSULE PO SCH (09:57)
[2016-12-30] MEDS: ENOXAPARIN SODIUM INJ 40 MG/0.4 ML DISP.SYRIN SUBCUT SCH (09:57)
[2016-12-30] MEDS: METOPROLOL TARTRATE 25 MG TABLET PO SCH ×2 (09:57→21:21)
[2016-12-30] MEDS: VENLAFAXINE HCL 75 MG CAP.SR.24H PO SCH (09:57)
[2016-12-30] MEDS: MORPHINE SULFATE 10 MG/ML INJ IV PRN ×2 (09:57→16:29)
[2016-12-30] MEDS: FAMOTIDINE 20 MG TABLET PO SCH ×2 (09:58→21:21)
[2016-12-30] MEDS: NICOTINE 21 MG/24 HR PATCH.TD24 TD SCH (09:58)
[2016-12-30] MEDS: CLOPIDOGREL BISULFATE 75 MG TABLET PO SCH (09:58)
[2016-12-30] MEDS: CEFTRIAXONE 1 GM/D5W RTU 50 ML IV SCH (11:28)
[2016-12-30] MEDS: ACETAMINOPHEN 325 MG TABLET PO PRN (14:08)
[2016-12-30] MEDS: OXYCODONE-ACETAMINOPHEN 5-325 MG TABLET PO PRN (14:46)
--- NOTE | 2016-12-30 15:07 | PDOC PROGRESS REPORT ---
Subjective Progress Note for:: 12/30/16 Subjective:: JOSE ANGEL FINCH is a 71 year old female who returns from retirement facility on 12/25/2016 after just one night due to worsening confusion leading to combativeness. Her son reports she arrived at [facility] yesterday in good spirits but started to decline as night set in. This morning she is very tangential with random thoughts and pressured speech, she becomes easily agitated at times because she cannot remember the word she is trying to say and lashes out at those around her. Ironically she is able to identify where she is and that she just came back from [facility] but doesn't remember me from yesterday and struggles to remember events surrounding her recent hospitalization. she was just admitted after fall resulting in femoral shaft fx requiring ORIF and intramedullary nailing by Dr Barry. Her PCP is Dr Garcia at [facility]. Eval in the ED suggests a UTI as likely source of her confusion. She had bustamante catheter postop that was only removed yesterday due to her immobility and intermittent confusion. Culture grew E Coli and she is on adequate abx, tolerating rocephin and can likely switch to oral ceph in near future. Her son , Cosmo who appears to be POA, reports that over the last year she has become easily confused with progressive ST memory loss but a formal evaluation and diagnosis of dementia has never been made. He also reports that she very clearly told him previously that she "did not want all those machines they used to keep your Dad alive", meaning she is DNR. She is improved but not back to baseline, still confused, easily agitated and tangential in her thinking. She is adamant about not going back to [facility] though. Care coordinators seeking other rehab options, she remains too unsteady on her feet and not fully recovered from her hip repair. Today she is awake, alert and only minimally confused, if at all. She complains of pain. RN suggests this may be drug-seeking behavior as she just received a dose of pain Rx and has appeared comfortable. Physical Exam Vital Signs: Temp Pulse Resp BP Pulse Ox 98.2 F 89 18 126/58 H 95 12/30/16 07:18 12/30/16 07:18 12/30/16 07:18 12/30/16 07:18 12/30/16 07:33 Intake & Output 12/29/16 12/30/16 12/31/16 06:59 06:59 06:59 Intake Total 2130 2230 0 Output Total 2400 2200 Balance -270 30 0 Weight 73.6 kg 75.3 kg Additional comments: General appearance: awake, alert, no acute distress, well-developed, well- nourished Head exam: PRESENT: atraumatic, normocephalic Eye exam: ABSENT: conjunctival injection, scleral icterus Mouth exam: PRESENT: moist, neck supple Neck exam: PRESENT: full ROM. ABSENT: JVD Respiratory exam: PRESENT: clear to auscultation ta, unlabored. ABSENT: accessory muscle use Cardiovascular exam: PRESENT: RRR, tachycardia Pulses: PRESENT: normal radial pulses, normal dorsalis pedis pul GI/Abdominal exam: PRESENT: normal bowel sounds, soft. ABSENT: tenderness Extremities exam: ABSENT: calf tenderness, pedal edema, tenderness Musculoskeletal exam: ABSENT: full ROM - limited Rt hip due to stiffness and pain with full extension Neurological exam: PRESENT: alert, awake, oriented to person, oriented to place. ABSENT: oriented to time, oriented to situation Psychiatric exam: PRESENT: appropriate affect, normal mood Focused psych exam: PRESENT: paranoid Skin exam: PRESENT: other - ecchymosis as before about the repaired hip and thigh, resolving. ABSENT: erythema Results Laboratory Results: 12/30/16 07:29 12/30/16 07:29 12/30/16 12/30/16 07:29 07:29 WBC 8.8 RBC 3.23 L Hgb 8.8 L Hct 27.6 L MCV 86 MCH 27.3 MCHC 31.9 L RDW 15.6 H Plt Count 339 Seg Neutrophils % 54.3 Lymphocytes % 30.0 Monocytes % 11.5 Eosinophils % 3.1 Basophils % 1.1 Absolute Neutrophils 4.8 Absolute Lymphocytes 2.6 Absolute Monocytes 1.0 Absolute Eosinophils 0.3 Absolute Basophils 0.1 Sodium 139.1 Potassium 4.4 Chloride 103 Carbon Dioxide 27 Anion Gap 9 BUN 9 Creatinine 0.50 L Est GFR ( Amer) > 60 Est GFR (Non-Af Amer) > 60 Glucose 93 Calcium 9.8 12/25/16 14:02 Blood Blood Culture - Final NO GROWTH IN 5 DAYS 12/25/16 11:34 Blood Blood Culture - Final NO GROWTH IN 5 DAYS Impressions: Head CT 12/25/16 07:44 IMPRESSION: CHRONIC CHANGES OF ATROPHY AND MICROVASCULAR ISCHEMIA. OLD INFARCT IN THE LEFT FRONTAL LOBE. NO ACUTE PROCESS. Chest X-Ray 12/25/16 11:02 IMPRESSION: CHRONIC INTERSTITIAL CHANGES. POSSIBLE ATELECTASIS OR EARLY INFILTRATE IN THE RIGHT UPPER LOBE. Hip X-Ray 12/29/16 00:00 IMPRESSION: No acute fracture or dislocation. Patient is status post right hip pinning. Assessment & Plan - Diagnosis (1) Acute metabolic encephalopathy Is this a current diagnosis for this admission?: YesPlan: This is improved and possibly close to baseline. I am suspicious of some degree of underlying chronic dementia. (2) UTI (urinary tract infection), bacterial Is this a current diagnosis for this admission?: YesPlan: Will switching Rocephin to oral therapy. (3) Dementia Qualifiers: Dementia type: unspecified type Is this a current diagnosis for this admission?: YesPlan: The patient was admitted with altered mental status and urinary tract infection , but there is history of a more persistent dementing illness. (4) Chronic hypoxemic respiratory failure Is this a current diagnosis for this admission?: YesPlan: Continue oxygen supplementation as needed. (5) COPD (chronic obstructive pulmonary disease) Qualifiers: COPD type: chronic bronchitis Chronic bronchitis type: simple Qualified Code(s): J41.0 - Simple chronic bronchitis Is this a current diagnosis for this admission?: Yes (6) Chronic back pain Qualifiers: Back pain location: low back pain Back pain laterality: unspecified Sciatica presence: unspecified whether sciatica present Qualified Code( s): M54.5 - Low back pain; G89.29 - Other chronic pain Is this a current diagnosis for this admission?: Yes (7) Intertrochanteric fracture of right femur Qualifiers: Encounter type: initial encounter Fracture type: closed Qualified Code(s): S72.141A - Displaced intertrochanteric fracture of right femur, initial encounter for closed fracture Is this a current diagnosis for this admission?: YesPlan: Status post recent hip fracture and ORIF. Continue rehabilitation therapies.
[2016-12-30] MEDS: GABAPENTIN 100 MG CAPSULE PO SCH (21:21)
[2016-12-30] MEDS: NITROFURANTOIN MONOHYD/M-CRYST 100 MG CAPSULE PO SCH (21:21)
[2016-12-30] MEDS: LORAZEPAM INJ 2 MG/1 ML VIAL IV PRN (23:40)
[2016-12-31] MEDS: HALOPERIDOL LACTATE INJ 5 MG/1 ML VIAL IV PRN ×2 (03:24→21:22)
[2016-12-31] MEDS: ENOXAPARIN SODIUM INJ 40 MG/0.4 ML DISP.SYRIN SUBCUT SCH (08:35)
[2016-12-31] MEDS: OXYCODONE-ACETAMINOPHEN 5-325 MG TABLET PO PRN ×3 (09:44→19:44)
[2016-12-31] MEDS: FAMOTIDINE 20 MG TABLET PO SCH ×2 (09:45→21:17)
[2016-12-31] MEDS: VENLAFAXINE HCL 75 MG CAP.SR.24H PO SCH (09:45)
[2016-12-31] MEDS: METOPROLOL TARTRATE 25 MG TABLET PO SCH ×2 (09:45→21:17)
[2016-12-31] MEDS: NITROFURANTOIN MONOHYD/M-CRYST 100 MG CAPSULE PO SCH ×2 (09:45→21:17)
[2016-12-31] MEDS: CLOPIDOGREL BISULFATE 75 MG TABLET PO SCH (09:46)
[2016-12-31] MEDS: NICOTINE 21 MG/24 HR PATCH.TD24 TD SCH (09:46)
[2016-12-31] MEDS: DOCUSATE SODIUM 100 MG CAPSULE PO SCH (09:46)
[2016-12-31] MEDS: MORPHINE SULFATE 10 MG/ML INJ IV PRN ×3 (11:50→22:41)
--- NOTE | 2016-12-31 15:05 | PDOC PROGRESS REPORT ---
Subjective Progress Note for:: 12/31/16 Subjective:: JOSE ANGEL FINCH is a 71 year old female who returns from [facility] facility on 12/25/2016 after just one night due to worsening confusion leading to combativeness. Her son reports she arrived at [facility] yesterday in good spirits but started to decline as night set in. This morning she is very tangential with random thoughts and pressured speech, she becomes easily agitated at times because she cannot remember the word she is trying to say and lashes out at those around her. Ironically she is able to identify where she is and that she just came back from [facility] but doesn't remember me from yesterday and struggles to remember events surrounding her recent hospitalization. she was just admitted after fall resulting in femoral shaft fx requiring ORIF and intramedullary nailing by Dr Barry. Her PCP is Dr Garcia at [facility]. Eval in the ED suggests a UTI as likely source of her confusion. She had bustamante catheter postop that was only removed yesterday due to her immobility and intermittent confusion. Culture grew E Coli and she is on adequate abx, tolerating rocephin and can likely switch to oral ceph in near future. Her son , Cosmo who appears to be POA, reports that over the last year she has become easily confused with progressive ST memory loss but a formal evaluation and diagnosis of dementia has never been made. He also reports that she very clearly told him previously that she "did not want all those machines they used to keep your Dad alive", meaning she is DNR. 12/29/2016 she is improved but not back to baseline, still confused, easily agitated and tangential in her thinking. She is adamant about not going back to [facility] though. Care coordinators seeking other rehab options, she remains too unsteady on her feet and not fully recovered from her hip repair. Today she is awake, alert and only minimally confused, if at all. No complaint of pain today. Physical Exam Vital Signs: Temp Pulse Resp BP Pulse Ox 97.7 F 72 20 139/68 H 98 12/31/16 11:59 12/31/16 11:59 12/31/16 11:59 12/31/16 11:59 12/31/16 11:59 Intake & Output 12/30/16 12/31/16 01/01/17 06:59 06:59 06:59 Intake Total 2230 2230 Output Total 2200 1400 Balance 30 830 Weight 75.3 kg 75 kg Additional comments: General appearance: awake, alert, no acute distress, well-developed, well- nourished Head exam: PRESENT: atraumatic, normocephalic Eye exam: ABSENT: conjunctival injection, scleral icterus Mouth exam: PRESENT: moist, neck supple Neck exam: PRESENT: full ROM. ABSENT: JVD Respiratory exam: PRESENT: clear to auscultation ta, unlabored. ABSENT: accessory muscle use Cardiovascular exam: PRESENT: RRR, tachycardia Pulses: PRESENT: normal radial pulses, normal dorsalis pedis pul GI/Abdominal exam: PRESENT: normal bowel sounds, soft. ABSENT: tenderness Extremities exam: ABSENT: calf tenderness, pedal edema, tenderness Musculoskeletal exam: ABSENT: full ROM - limited Rt hip due to stiffness and pain with full extension Neurological exam: PRESENT: alert, awake, oriented to person, oriented to place. ABSENT: oriented to time, oriented to situation Psychiatric exam: PRESENT: appropriate affect, normal mood Skin exam: PRESENT: other - ecchymosis as before about the repaired hip and thigh, resolving. ABSENT: erythema Results Laboratory Results: 12/30/16 07:29 12/30/16 07:29 12/25/16 14:02 Blood Blood Culture - Final NO GROWTH IN 5 DAYS 12/25/16 11:34 Blood Blood Culture - Final NO GROWTH IN 5 DAYS Impressions: Head CT 12/25/16 07:44 IMPRESSION: CHRONIC CHANGES OF ATROPHY AND MICROVASCULAR ISCHEMIA. OLD INFARCT IN THE LEFT FRONTAL LOBE. NO ACUTE PROCESS. Chest X-Ray 12/25/16 11:02 IMPRESSION: CHRONIC INTERSTITIAL CHANGES. POSSIBLE ATELECTASIS OR EARLY INFILTRATE IN THE RIGHT UPPER LOBE. Hip X-Ray 12/29/16 00:00 IMPRESSION: No acute fracture or dislocation. Patient is status post right hip pinning. Assessment & Plan - Diagnosis (1) Acute metabolic encephalopathy Is this a current diagnosis for this admission?: YesPlan: This is improved and possibly close to baseline. I am suspicious of some degree of underlying chronic dementia. (2) UTI (urinary tract infection), bacterial Is this a current diagnosis for this admission?: YesPlan: Off Rocephin. On Macrobid per sensitivities on the 12/25/2016 E. coli. (3) Dementia Qualifiers: Dementia type: unspecified type Is this a current diagnosis for this admission?: YesPlan: The patient was admitted with altered mental status and urinary tract infection , but there is history of a more persistent dementing illness. (4) Chronic hypoxemic respiratory failure Is this a current diagnosis for this admission?: YesPlan: Continue oxygen supplementation as needed. (5) COPD (chronic obstructive pulmonary disease) Qualifiers: COPD type: chronic bronchitis Chronic bronchitis type: simple Qualified Code(s): J41.0 - Simple chronic bronchitis Is this a current diagnosis for this admission?: Yes (6) Intertrochanteric fracture of right femur Qualifiers: Encounter type: initial encounter Fracture type: closed Qualified Code(s): S72.141A - Displaced intertrochanteric fracture of right femur, initial encounter for closed fracture Is this a current diagnosis for this admission?: YesPlan: Status post recent hip fracture and ORIF. Continue rehabilitation therapies. (7) Chronic back pain Qualifiers: Back pain location: low back pain Back pain laterality: unspecified Sciatica presence: unspecified whether sciatica present Qualified Code( s): M54.5 - Low back pain; G89.29 - Other chronic pain Is this a current diagnosis for this admission?: Yes
[2016-12-31] MEDS: GABAPENTIN 100 MG CAPSULE PO SCH (21:17)
[2017-01-01] MEDS: OXYCODONE-ACETAMINOPHEN 5-325 MG TABLET PO PRN ×2 (03:01→07:57)
[2017-01-01] MEDS: ENOXAPARIN SODIUM INJ 40 MG/0.4 ML DISP.SYRIN SUBCUT SCH (07:57)
[2017-01-01] MEDS: MORPHINE SULFATE 10 MG/ML INJ IV PRN (08:16)
[2017-01-01] MEDS: NICOTINE 21 MG/24 HR PATCH.TD24 TD SCH (09:55)
[2017-01-01] MEDS: NITROFURANTOIN MONOHYD/M-CRYST 100 MG CAPSULE PO SCH ×2 (09:56→21:53)
[2017-01-01] MEDS: CLOPIDOGREL BISULFATE 75 MG TABLET PO SCH (09:56)
[2017-01-01] MEDS: FAMOTIDINE 20 MG TABLET PO SCH ×2 (09:56→21:53)
[2017-01-01] MEDS: VENLAFAXINE HCL 75 MG CAP.SR.24H PO SCH (09:57)
[2017-01-01] MEDS: DOCUSATE SODIUM 100 MG CAPSULE PO SCH (09:57)
[2017-01-01] MEDS: METOPROLOL TARTRATE 25 MG TABLET PO SCH ×2 (09:57→21:54)
[2017-01-01] MEDS: ACETAMINOPHEN 325 MG TABLET PO PRN ×3 (12:41→21:53)
[2017-01-01] MEDS: OXYCODONE HCL IR 5 MG TABLET PO PRN ×2 (14:40→18:42)
--- NOTE | 2017-01-01 15:02 | PDOC PROGRESS REPORT ---
Subjective Progress Note for:: 01/01/17 Subjective:: JOSE ANGEL FINCH is a 71 year old female who returns from long[facility]term facility on 12/25/2016 after just one night due to worsening confusion leading to combativeness. Her son reports she arrived at [facility] yesterday in good spirits but started to decline as night set in. This morning she is very tangential with random thoughts and pressured speech, she becomes easily agitated at times because she cannot remember the word she is trying to say and lashes out at those around her. Ironically she is able to identify where she is and that she just came back from [facility] but doesn't remember me from yesterday and struggles to remember events surrounding her recent hospitalization. she was just admitted after fall resulting in femoral shaft fx requiring ORIF and intramedullary nailing by Dr Barry. Her PCP is Dr Garcia at [facility]. Eval in the ED suggests a UTI as likely source of her confusion. She had bustamante catheter postop that was only removed yesterday due to her immobility and intermittent confusion. Culture grew E Coli and she is on adequate abx, tolerating rocephin and can likely switch to oral ceph in near future. Her son , Cosmo who appears to be POA, reports that over the last year she has become easily confused with progressive ST memory loss but a formal evaluation and diagnosis of dementia has never been made. He also reports that she very clearly told him previously that she "did not want all those machines they used to keep your Dad alive", meaning she is DNR. 12/29/2016 she is improved but not back to baseline, still confused, easily agitated and tangential in her thinking. She is adamant about not going back to [facility] though. Care coordinators seeking other rehab options, she remains too unsteady on her feet and not fully recovered from her hip repair. Today she is awake, alert and oriented. She complains bitterly of pain in her operated leg, especially after working with PT yesterday. Physical Exam Vital Signs: Temp Pulse Resp BP Pulse Ox 98.0 F 85 17 126/71 H 94 01/01/17 11:51 01/01/17 11:51 01/01/17 11:51 01/01/17 11:51 01/01/17 11:51 Intake & Output 12/31/16 01/01/17 01/02/17 06:59 06:59 06:59 Intake Total 2230 1430 Output Total 1400 600 Balance 830 830 Weight 75 kg Additional comments: General appearance: awake, alert, no acute distress, well-developed, well- nourished Head exam: PRESENT: atraumatic, normocephalic Eye exam: ABSENT: conjunctival injection, scleral icterus Mouth exam: PRESENT: moist, neck supple Neck exam: PRESENT: full ROM. ABSENT: JVD Respiratory exam: PRESENT: clear to auscultation ta, unlabored. ABSENT: accessory muscle use Cardiovascular exam: PRESENT: RRR, tachycardia Pulses: PRESENT: normal radial pulses, normal dorsalis pedis pul GI/Abdominal exam: PRESENT: normal bowel sounds, soft. ABSENT: tenderness Extremities exam: ABSENT: calf tenderness, pedal edema, tenderness Musculoskeletal exam: ABSENT: full ROM - limited Rt hip due to stiffness and pain with full extension Neurological exam: PRESENT: alert, awake, oriented to person, oriented to place Psychiatric exam: PRESENT: appropriate affect, normal mood Skin exam: PRESENT: other - ecchymosis as before about the repaired hip and thigh, resolving. ABSENT: erythema Results Laboratory Results: 12/30/16 07:29 12/30/16 07:29 Impressions: Head CT 12/25/16 07:44 IMPRESSION: CHRONIC CHANGES OF ATROPHY AND MICROVASCULAR ISCHEMIA. OLD INFARCT IN THE LEFT FRONTAL LOBE. NO ACUTE PROCESS. Chest X-Ray 12/25/16 11:02 IMPRESSION: CHRONIC INTERSTITIAL CHANGES. POSSIBLE ATELECTASIS OR EARLY INFILTRATE IN THE RIGHT UPPER LOBE. Hip X-Ray 12/29/16 00:00 IMPRESSION: No acute fracture or dislocation. Patient is status post right hip pinning. Assessment & Plan - Diagnosis (1) Acute metabolic encephalopathy Is this a current diagnosis for this admission?: YesPlan: This is improved/resolved and possibly close to baseline. I am suspicious of some degree of underlying chronic dementia. (2) UTI (urinary tract infection), bacterial Is this a current diagnosis for this admission?: YesPlan: Off Rocephin. On Macrobid per sensitivities on the 12/25/2016 E. coli. (3) Dementia Qualifiers: Dementia type: unspecified type Is this a current diagnosis for this admission?: YesPlan: The patient was admitted with altered mental status and urinary tract infection , but there is history of a more persistent dementing illness. (4) Chronic hypoxemic respiratory failure Is this a current diagnosis for this admission?: YesPlan: Continue oxygen supplementation as needed. (5) COPD (chronic obstructive pulmonary disease) Qualifiers: COPD type: chronic bronchitis Chronic bronchitis type: simple Qualified Code(s): J41.0 - Simple chronic bronchitis Is this a current diagnosis for this admission?: Yes (6) Intertrochanteric fracture of right femur Qualifiers: Encounter type: initial encounter Fracture type: closed Qualified Code(s): S72.141A - Displaced intertrochanteric fracture of right femur, initial encounter for closed fracture Is this a current diagnosis for this admission?: YesPlan: Status post recent hip fracture and ORIF. Continue rehabilitation therapies. Will increase her pain Rx. (7) Chronic back pain Qualifiers: Back pain location: low back pain Back pain laterality: unspecified Sciatica presence: unspecified whether sciatica present Qualified Code( s): M54.5 - Low back pain; G89.29 - Other chronic pain Is this a current diagnosis for this admission?: Yes
[2017-01-01] MEDS: GABAPENTIN 100 MG CAPSULE PO SCH (21:54)
[2017-01-02] MEDS: OXYCODONE HCL IR 5 MG TABLET PO PRN ×4 (00:11→23:34)
[2017-01-02] MEDS: HALOPERIDOL LACTATE INJ 5 MG/1 ML VIAL IV PRN ×2 (03:43→22:33)
[2017-01-02] MEDS: ENOXAPARIN SODIUM INJ 40 MG/0.4 ML DISP.SYRIN SUBCUT SCH (08:02)
[2017-01-02] MEDS: ACETAMINOPHEN 325 MG TABLET PO PRN ×3 (08:02→16:07)
[2017-01-02] MEDS: METOPROLOL TARTRATE 25 MG TABLET PO SCH ×2 (09:48→21:28)
[2017-01-02] MEDS: FAMOTIDINE 20 MG TABLET PO SCH ×2 (09:48→21:28)
[2017-01-02] MEDS: NICOTINE 21 MG/24 HR PATCH.TD24 TD SCH (09:48)
[2017-01-02] MEDS: VENLAFAXINE HCL 75 MG CAP.SR.24H PO SCH (09:48)
[2017-01-02] MEDS: DOCUSATE SODIUM 100 MG CAPSULE PO SCH (09:48)
[2017-01-02] MEDS: CLOPIDOGREL BISULFATE 75 MG TABLET PO SCH (09:48)
[2017-01-02] MEDS: NITROFURANTOIN MONOHYD/M-CRYST 100 MG CAPSULE PO SCH ×2 (09:48→21:27)
--- NOTE | 2017-01-02 13:52 | PDOC PROGRESS REPORT ---
Subjective Progress Note for:: 01/02/17 Subjective:: JOSE ANGEL FINCH is a 71 year old female who returns from [facility] on 12/25/2016 after just one night due to worsening confusion leading to combativeness. Her son reports she arrived at [facility] yesterday in good spirits but started to decline as night set in. This morning she is very tangential with random thoughts and pressured speech, she becomes easily agitated at times because she cannot remember the word she is trying to say and lashes out at those around her. Ironically she is able to identify where she is and that she just came back from [facility] but doesn't remember me from yesterday and struggles to remember events surrounding her recent hospitalization. she was just admitted after fall resulting in femoral shaft fx requiring ORIF and intramedullary nailing by Dr Barry. Her PCP is Dr Garcia at [facility]. Eval in the ED suggests a UTI as likely source of her confusion. She had bustamante catheter postop that was only removed yesterday due to her immobility and intermittent confusion. Culture grew E Coli and she is on adequate abx, tolerating rocephin and can likely switch to oral ceph in near future. Her son , Cosmo who appears to be POA, reports that over the last year she has become easily confused with progressive ST memory loss but a formal evaluation and diagnosis of dementia has never been made. He also reports that she very clearly told him previously that she "did not want all those machines they used to keep your Dad alive", meaning she is DNR. 12/29/2016 she is improved but not back to baseline, still confused, easily agitated and tangential in her thinking. She is adamant about not going back to [facility] though. Care coordinators seeking other rehab options, she remains too unsteady on her feet and not fully recovered from her hip repair. Today she is awake, alert and oriented. She has less pain in her operated leg after increasing her oxycodone dose. However, she still c/o considerable pain and requests an even higher dose. She appears very awake, alert, and interactive. Physical Exam Vital Signs: Temp Pulse Resp BP Pulse Ox 97.7 F 63 18 113/57 L 97 01/02/17 11:29 01/02/17 11:29 01/02/17 11:29 01/02/17 11:29 01/02/17 11:29 Intake & Output 01/01/17 01/02/17 01/03/17 06:59 06:59 06:59 Intake Total 1430 1320 10 Output Total 600 800 Balance 830 520 10 Weight 73.6 kg Additional comments: General appearance: awake, alert, no acute distress, well-developed, well- nourished Head exam: PRESENT: atraumatic, normocephalic Eye exam: ABSENT: conjunctival injection, scleral icterus Mouth exam: PRESENT: moist, neck supple Neck exam: PRESENT: full ROM. ABSENT: JVD Respiratory exam: PRESENT: clear to auscultation ta, unlabored. ABSENT: accessory muscle use Cardiovascular exam: PRESENT: RRR, tachycardia Pulses: PRESENT: normal radial pulses, normal dorsalis pedis pul GI/Abdominal exam: PRESENT: normal bowel sounds, soft. ABSENT: tenderness Extremities exam: ABSENT: calf tenderness, pedal edema, tenderness Musculoskeletal exam: ABSENT: full ROM - limited Rt hip due to stiffness and pain with full extension Neurological exam: PRESENT: alert, awake, oriented to person, oriented to place Psychiatric exam: PRESENT: appropriate affect, normal mood Skin exam: PRESENT: other - ecchymosis as before about the repaired hip and thigh, resolving. ABSENT: erythema Results Laboratory Results: 12/30/16 07:29 12/30/16 07:29 Impressions: Head CT 12/25/16 07:44 IMPRESSION: CHRONIC CHANGES OF ATROPHY AND MICROVASCULAR ISCHEMIA. OLD INFARCT IN THE LEFT FRONTAL LOBE. NO ACUTE PROCESS. Chest X-Ray 12/25/16 11:02 IMPRESSION: CHRONIC INTERSTITIAL CHANGES. POSSIBLE ATELECTASIS OR EARLY INFILTRATE IN THE RIGHT UPPER LOBE. Hip X-Ray 12/29/16 00:00 IMPRESSION: No acute fracture or dislocation. Patient is status post right hip pinning. Assessment & Plan - Diagnosis (1) Acute metabolic encephalopathy Is this a current diagnosis for this admission?: YesPlan: This is improved/resolved and possibly close to baseline. I am suspicious of some degree of underlying chronic dementia. (2) UTI (urinary tract infection), bacterial Is this a current diagnosis for this admission?: YesPlan: Off Rocephin. On Macrobid per sensitivities on the 12/25/2016 E. coli. (3) Dementia Qualifiers: Dementia type: unspecified type Is this a current diagnosis for this admission?: YesPlan: The patient was admitted with altered mental status and urinary tract infection , but there is history of a more persistent dementing illness. (4) Chronic hypoxemic respiratory failure Is this a current diagnosis for this admission?: YesPlan: Continue oxygen supplementation as needed. (5) COPD (chronic obstructive pulmonary disease) Qualifiers: COPD type: chronic bronchitis Chronic bronchitis type: simple Qualified Code(s): J41.0 - Simple chronic bronchitis Is this a current diagnosis for this admission?: Yes (6) Intertrochanteric fracture of right femur Qualifiers: Encounter type: initial encounter Fracture type: closed Qualified Code(s): S72.141A - Displaced intertrochanteric fracture of right femur, initial encounter for closed fracture Is this a current diagnosis for this admission?: YesPlan: Status post recent hip fracture and ORIF. Continue rehabilitation therapies. Will increase her pain Rx further. (7) Chronic back pain Qualifiers: Back pain location: low back pain Back pain laterality: unspecified Sciatica presence: unspecified whether sciatica present Qualified Code( s): M54.5 - Low back pain; G89.29 - Other chronic pain Is this a current diagnosis for this admission?: Yes
[2017-01-02] MEDS: GABAPENTIN 100 MG CAPSULE PO SCH (21:28)
[2017-01-03] MEDS: OXYCODONE HCL IR 5 MG TABLET PO PRN ×3 (05:56→20:04)
[2017-01-03] MEDS: ENOXAPARIN SODIUM INJ 40 MG/0.4 ML DISP.SYRIN SUBCUT SCH (07:48)
[2017-01-03] MEDS: CYCLOBENZAPRINE HCL 10 MG TABLET PO SCH ×2 (09:57→21:58)
[2017-01-03] MEDS: METOPROLOL TARTRATE 25 MG TABLET PO SCH ×2 (09:58→21:55)
[2017-01-03] MEDS: DOCUSATE SODIUM 100 MG CAPSULE PO SCH (09:59)
[2017-01-03] MEDS: VENLAFAXINE HCL 75 MG CAP.SR.24H PO SCH (09:59)
[2017-01-03] MEDS: CLOPIDOGREL BISULFATE 75 MG TABLET PO SCH (09:59)
[2017-01-03] MEDS: FAMOTIDINE 20 MG TABLET PO SCH ×2 (09:59→21:58)
[2017-01-03] MEDS: NITROFURANTOIN MONOHYD/M-CRYST 100 MG CAPSULE PO SCH ×2 (09:59→21:58)
[2017-01-03] MEDS: NICOTINE 21 MG/24 HR PATCH.TD24 TD SCH (10:00)
--- NOTE | 2017-01-03 12:40 | PDOC PROGRESS REPORT ---
Subjective Progress Note for:: 01/03/17 Subjective:: JOSE ANGEL FINCH is a 71 year old female who [facility] after just one night due to worsening confusion leading to combativeness. Her son reports she arrived at [facility] yesterday in good spirits but started to decline as night set in. This morning she is very tangential with random thoughts and pressured speech, she becomes easily agitated at times because she cannot remember the word she is trying to say and lashes out at those around her. Ironically she is able to identify where she is and that she just came back from [facility] but doesn't remember me from yesterday and struggles to remember events surrounding her recent hospitalization. she was just admitted after fall resulting in femoral shaft fx requiring ORIF and intramedullary nailing by Dr Barry. Her PCP is Dr Garcia at [facility]. Eval in the ED suggests a UTI as likely source of her confusion. She had bustamante catheter postop that was only removed yesterday due to her immobility and intermittent confusion. Culture grew E Coli and she is on adequate abx, tolerating rocephin and can likely switch to oral ceph in near future. Her son , Cosmo who appears to be POA, reports that over the last year she has become easily confused with progressive ST memory loss but a formal evaluation and diagnosis of dementia has never been made. He also reports that she very clearly told him previously that she "did not want all those machines they used to keep your Dad alive", meaning she is DNR. 12/29/2016 she is improved but not back to baseline, still confused, easily agitated and tangential in her thinking. She is adamant about not going back to [facility] though. Care coordinators seeking other rehab options, she remains too unsteady on her feet and not fully recovered from her hip repair. 01/02 - Today she is awake, alert and oriented. She has less pain in her operated leg after increasing her oxycodone dose. However, she still c/o considerable pain and requests an even higher dose. She appears very awake, alert, and interactive. 01/03 -Her pain is under satisfactory control with the increase in dosage. She complains of muscle spasms around the operated hip, especially at night, forcing her to sleep in a chair. She remains very weak. She is working with physical therapy. Physical Exam Vital Signs: Temp Pulse Resp BP Pulse Ox 97.5 F 88 20 137/69 H 92 01/03/17 11:33 01/03/17 11:33 01/03/17 11:33 01/03/17 11:33 01/03/17 11:33 Intake & Output 01/02/17 01/03/17 01/04/17 06:59 06:59 06:59 Intake Total 1320 1920 0 Output Total 800 350 Balance 520 1570 0 Weight 73.6 kg 72.6 kg Additional comments: General appearance: awake, alert, no acute distress, well-developed, well- nourished Head exam: PRESENT: atraumatic, normocephalic Eye exam: ABSENT: conjunctival injection, scleral icterus Mouth exam: PRESENT: moist, neck supple Neck exam: PRESENT: full ROM. ABSENT: JVD Respiratory exam: PRESENT: clear to auscultation ta, unlabored. ABSENT: accessory muscle use Cardiovascular exam: PRESENT: RRR, tachycardia Pulses: PRESENT: normal radial pulses, normal dorsalis pedis pul GI/Abdominal exam: PRESENT: normal bowel sounds, soft. ABSENT: tenderness Extremities exam: ABSENT: calf tenderness, pedal edema, tenderness Musculoskeletal exam: ABSENT: full ROM - limited Rt hip due to stiffness and pain with full extension Neurological exam: PRESENT: alert, awake, oriented to person, oriented to place Psychiatric exam: PRESENT: appropriate affect, normal mood Skin exam: PRESENT: other - ecchymosis as before about the repaired hip and thigh, resolving. ABSENT: erythema Results Laboratory Results: 12/30/16 07:29 12/30/16 07:29 Impressions: Head CT 12/25/16 07:44 IMPRESSION: CHRONIC CHANGES OF ATROPHY AND MICROVASCULAR ISCHEMIA. OLD INFARCT IN THE LEFT FRONTAL LOBE. NO ACUTE PROCESS. Chest X-Ray 12/25/16 11:02 IMPRESSION: CHRONIC INTERSTITIAL CHANGES. POSSIBLE ATELECTASIS OR EARLY INFILTRATE IN THE RIGHT UPPER LOBE. Hip X-Ray 12/29/16 00:00 IMPRESSION: No acute fracture or dislocation. Patient is status post right hip pinning. Assessment & Plan - Diagnosis (1) Acute metabolic encephalopathy Is this a current diagnosis for this admission?: YesPlan: This is improved/resolved and possibly close to baseline. I am suspicious of some degree of underlying chronic dementia. (2) UTI (urinary tract infection), bacterial Is this a current diagnosis for this admission?: YesPlan: Off Rocephin. On Macrobid to 01/06, per sensitivities on the 12/25/2016 E. coli. (3) Dementia Qualifiers: Dementia type: unspecified type Is this a current diagnosis for this admission?: YesPlan: The patient was admitted with altered mental status and urinary tract infection , but there is history of a more persistent dementing illness. (4) Chronic hypoxemic respiratory failure Is this a current diagnosis for this admission?: YesPlan: Continue oxygen supplementation as needed. (5) COPD (chronic obstructive pulmonary disease) Qualifiers: COPD type: chronic bronchitis Chronic bronchitis type: simple Qualified Code(s): J41.0 - Simple chronic bronchitis Is this a current diagnosis for this admission?: Yes (6) Intertrochanteric fracture of right femur Qualifiers: Encounter type: initial encounter Fracture type: closed Qualified Code(s): S72.141A - Displaced intertrochanteric fracture of right femur, initial encounter for closed fracture Is this a current diagnosis for this admission?: YesPlan: Status post recent hip fracture and ORIF. Continue rehabilitation therapies. Continue current pain Rx. Will add a low-dose of Flexeril. (7) Chronic back pain Qualifiers: Back pain location: low back pain Back pain laterality: unspecified Sciatica presence: unspecified whether sciatica present Qualified Code( s): M54.5 - Low back pain; G89.29 - Other chronic pain Is this a current diagnosis for this admission?: Yes
[2017-01-03] MEDS: ACETAMINOPHEN 325 MG TABLET PO PRN ×2 (18:04→23:29)
[2017-01-03] MEDS: HALOPERIDOL LACTATE INJ 5 MG/1 ML VIAL IV PRN (21:58)
[2017-01-03] MEDS: GABAPENTIN 100 MG CAPSULE PO SCH (21:58)
[2017-01-04] MEDS: OXYCODONE HCL IR 5 MG TABLET PO PRN ×4 (01:59→21:23)
[2017-01-04] MEDS ORDERED: HALOPERIDOL 5 MG TABLET PO PRN (03:39)
[2017-01-04 04:47] LABS: ABSOLUTE BASOPHILS # (AUTO) 0.1 10^3/uL (0.0-0.2); ABSOLUTE EOSINOPHILS # (AUTO) 0.3 10^3/uL (0.0-0.6); ABSOLUTE LYMPHOCYTES (AUTO) 3.3 10^3/uL (0.5-4.7); ABSOLUTE MONOCYTES (AUTO) 0.8 10^3/uL (0.1-1.4); ABSOLUTE NEUT (AUTO) 4.2 10^3/uL (1.7-8.2); BASOPHILS % (AUTO) 0.8 % (0-2); EOSINOPHILS % (AUTO) 3.2 % (0-6); HEMATOCRIT 30.5 % (36.0-47.0); HEMOGLOBIN 9.4 g/dL (12.0-15.5); HGB HCT DIFFERENCE -2.3; LYMPHOCYTES % (AUTO) 37.9 % (13-45); MEAN CORPUSCULAR HEMOGLOBIN 26.7 pg (27.0-33.4); MEAN CORPUSCULAR HGB CONC 30.9 g/dL (32.0-36.0); MEAN CORPUSCULAR VOLUME 86 fl (80-97); MONOCYTES % (AUTO) 9.3 % (3-13); RED BLOOD COUNT 3.53 10^6/uL (3.72-5.28); RED CELL DISTRIBUTION WIDTH 16.1 % (11.5-14.0); SEGMENTED NEUTROPHILS % (AUTO) 48.8 % (42-78); WHITE BLOOD COUNT 8.6 10^3/uL (4.0-10.5)
[2017-01-04 04:57] LABS: ANION GAP 8 (5-19); BLOOD UREA NITROGEN 13 mg/dL (7-20); CALCIUM 10.1 mg/dL (8.4-10.2); CARBON DIOXIDE 29 mmol/L (22-30); CHLORIDE 102 mmol/L (98-107); CREATININE RESULT 0.58 mg/dL (0.52-1.25); GLUCOSE 85 mg/dL (75-110); POTASSIUM 4.5 mmol/L (3.6-5.0); SODIUM 139.4 mmol/L (137-145)
[2017-01-04] MEDS: ACETAMINOPHEN 325 MG TABLET PO PRN ×2 (06:49→18:18)
[2017-01-04] MEDS: ENOXAPARIN SODIUM INJ 40 MG/0.4 ML DISP.SYRIN SUBCUT SCH (08:13)
[2017-01-04] MEDS: NICOTINE 21 MG/24 HR PATCH.TD24 TD SCH (10:07)
[2017-01-04] MEDS: FAMOTIDINE 20 MG TABLET PO SCH ×2 (10:07→21:22)
[2017-01-04] MEDS: DOCUSATE SODIUM 100 MG CAPSULE PO SCH (10:08)
[2017-01-04] MEDS: CYCLOBENZAPRINE HCL 10 MG TABLET PO SCH ×2 (10:08→21:23)
[2017-01-04] MEDS: VENLAFAXINE HCL 75 MG CAP.SR.24H PO SCH (10:08)
[2017-01-04] MEDS: METOPROLOL TARTRATE 25 MG TABLET PO SCH ×2 (10:08→23:30)
[2017-01-04] MEDS: CLOPIDOGREL BISULFATE 75 MG TABLET PO SCH (10:08)
[2017-01-04] MEDS: NITROFURANTOIN MONOHYD/M-CRYST 100 MG CAPSULE PO SCH ×2 (10:08→21:23)
[2017-01-04] MEDS ORDERED: ONDANSETRON HCL INJ/PF 4 MG/2 ML SDV IV PRN (10:57)
--- NOTE | 2017-01-04 13:10 | PDOC PROGRESS REPORT ---
Subjective Progress Note for:: 01/04/17 Subjective:: JOSE ANGEL FINCH is a 71 year old female who returns from [facility] facility on 12/25/2016 after just one night due to worsening confusion leading to combativeness. Her son reports she arrived at [facility] yesterday in good spirits but started to decline as night set in. This morning she is very tangential with random thoughts and pressured speech, she becomes easily agitated at times because she cannot remember the word she is trying to say and lashes out at those around her. Ironically she is able to identify where she is and that she just came back from [facility] but doesn't remember me from yesterday and struggles to remember events surrounding her recent hospitalization. she was just admitted after fall resulting in femoral shaft fx requiring ORIF and intramedullary nailing by Dr Barry. Her PCP is Dr Garcia at [facility]. Eval in the ED suggests a UTI as likely source of her confusion. She had bustamante catheter postop that was only removed yesterday due to her immobility and intermittent confusion. Culture grew E Coli and she is on adequate abx, tolerating rocephin and can likely switch to oral ceph in near future. Her son , Cosmo who appears to be POA, reports that over the last year she has become easily confused with progressive ST memory loss but a formal evaluation and diagnosis of dementia has never been made. He also reports that she very clearly told him previously that she "did not want all those machines they used to keep your Dad alive", meaning she is DNR. 12/29/2016 she is improved but not back to baseline, still confused, easily agitated and tangential in her thinking. She is adamant about not going back to [facility] though. Care coordinators seeking other rehab options, she remains too unsteady on her feet and not fully recovered from her hip repair. 01/02 - Today she is awake, alert and oriented. She has less pain in her operated leg after increasing her oxycodone dose. However, she still c/o considerable pain and requests an even higher dose. She appears very awake, alert, and interactive. 01/03 -Her pain is under satisfactory control with the increase in dosage. She complains of muscle spasms around the operated hip, especially at night, forcing her to sleep in a chair. She remains very weak. She is working with physical therapy. 01/04 - Pain is under satisfactory control. She finally was able to sleep in her bed. She remains weak and has trouble transferring and walking even short distances. Awaiting a bed at the SNF. Case management following. Physical Exam Vital Signs: Temp Pulse Resp BP Pulse Ox 98.2 F 87 18 138/76 H 93 01/04/17 11:29 01/04/17 11:29 01/04/17 11:29 01/04/17 11:29 01/04/17 11:29 Intake & Output 01/03/17 01/04/17 01/05/17 06:59 06:59 06:59 Intake Total 1920 2325 Output Total 350 Balance 1570 2325 Weight 72.6 kg 72.4 kg Additional comments: General appearance: awake, alert, no acute distress, well-developed, well- nourished Head exam: PRESENT: atraumatic, normocephalic Eye exam: ABSENT: conjunctival injection, scleral icterus Mouth exam: PRESENT: moist, neck supple Neck exam: PRESENT: full ROM. ABSENT: JVD Respiratory exam: PRESENT: clear to auscultation ta, unlabored. ABSENT: accessory muscle use Cardiovascular exam: PRESENT: RRR, tachycardia Pulses: PRESENT: normal radial pulses, normal dorsalis pedis pul GI/Abdominal exam: PRESENT: normal bowel sounds, soft. ABSENT: tenderness Extremities exam: ABSENT: calf tenderness, pedal edema, tenderness Musculoskeletal exam: ABSENT: full ROM - limited Rt hip due to stiffness and pain with full extension Neurological exam: PRESENT: alert, awake, oriented to person, oriented to place Psychiatric exam: PRESENT: appropriate affect, normal mood Skin exam: PRESENT: other - ecchymosis as before about the repaired hip and thigh, resolving. ABSENT: erythema Results Laboratory Results: 01/04/17 03:50 01/04/17 03:50 01/04/17 01/04/17 03:50 03:50 WBC 8.6 RBC 3.53 L Hgb 9.4 L Hct 30.5 L MCV 86 MCH 26.7 L MCHC 30.9 L RDW 16.1 H Plt Count 323 Seg Neutrophils % 48.8 Lymphocytes % 37.9 Monocytes % 9.3 Eosinophils % 3.2 Basophils % 0.8 Absolute Neutrophils 4.2 Absolute Lymphocytes 3.3 Absolute Monocytes 0.8 Absolute Eosinophils 0.3 Absolute Basophils 0.1 Sodium 139.4 Potassium 4.5 Chloride 102 Carbon Dioxide 29 Anion Gap 8 BUN 13 Creatinine 0.58 Est GFR ( Amer) > 60 Est GFR (Non-Af Amer) > 60 Glucose 85 Calcium 10.1 Impressions: Head CT 12/25/16 07:44 IMPRESSION: CHRONIC CHANGES OF ATROPHY AND MICROVASCULAR ISCHEMIA. OLD INFARCT IN THE LEFT FRONTAL LOBE. NO ACUTE PROCESS. Chest X-Ray 12/25/16 11:02 IMPRESSION: CHRONIC INTERSTITIAL CHANGES. POSSIBLE ATELECTASIS OR EARLY INFILTRATE IN THE RIGHT UPPER LOBE. Hip X-Ray 12/29/16 00:00 IMPRESSION: No acute fracture or dislocation. Patient is status post right hip pinning. Assessment & Plan - Diagnosis (1) Acute metabolic encephalopathy Is this a current diagnosis for this admission?: YesPlan: This is improved/resolved and possibly close to baseline. I am suspicious of some degree of underlying chronic dementia. (2) UTI (urinary tract infection), bacterial Is this a current diagnosis for this admission?: YesPlan: Off Rocephin. On Macrobid to 01/06, per sensitivities on the 12/25/2016 E. coli. (3) Dementia Qualifiers: Dementia type: unspecified type Is this a current diagnosis for this admission?: YesPlan: The patient was admitted with altered mental status and urinary tract infection , but there is history of a more persistent dementing illness. (4) Chronic hypoxemic respiratory failure Is this a current diagnosis for this admission?: YesPlan: Continue oxygen supplementation as needed. (5) COPD (chronic obstructive pulmonary disease) Qualifiers: COPD type: chronic bronchitis Chronic bronchitis type: simple Qualified Code(s): J41.0 - Simple chronic bronchitis Is this a current diagnosis for this admission?: Yes (6) Intertrochanteric fracture of right femur Qualifiers: Encounter type: initial encounter Fracture type: closed Qualified Code(s): S72.141A - Displaced intertrochanteric fracture of right femur, initial encounter for closed fracture Is this a current diagnosis for this admission?: YesPlan: Status post recent hip fracture and ORIF. Continue rehabilitation therapies. Continue current pain Rx. The low-dose Flexeril seemed to help. (7) Chronic back pain Qualifiers: Back pain location: low back pain Back pain laterality: unspecified Sciatica presence: unspecified whether sciatica present Qualified Code( s): M54.5 - Low back pain; G89.29 - Other chronic pain Is this a current diagnosis for this admission?: Yes
[2017-01-04] MEDS: GABAPENTIN 100 MG CAPSULE PO SCH (21:22)
[2017-01-05] MEDS: OXYCODONE HCL IR 5 MG TABLET PO PRN ×3 (06:21→19:25)
[2017-01-05] MEDS: ENOXAPARIN SODIUM INJ 40 MG/0.4 ML DISP.SYRIN SUBCUT SCH (09:52)
[2017-01-05] MEDS: METOPROLOL TARTRATE 25 MG TABLET PO SCH (09:52)
[2017-01-05] MEDS: DOCUSATE SODIUM 100 MG CAPSULE PO SCH (09:53)
[2017-01-05] MEDS: VENLAFAXINE HCL 75 MG CAP.SR.24H PO SCH (09:53)
[2017-01-05] MEDS: FAMOTIDINE 20 MG TABLET PO SCH (09:53)
[2017-01-05] MEDS: CLOPIDOGREL BISULFATE 75 MG TABLET PO SCH (09:53)
[2017-01-05] MEDS: NITROFURANTOIN MONOHYD/M-CRYST 100 MG CAPSULE PO SCH (09:53)
[2017-01-05] MEDS: CYCLOBENZAPRINE HCL 10 MG TABLET PO SCH (09:53)
[2017-01-05] MEDS: NICOTINE 21 MG/24 HR PATCH.TD24 TD SCH (09:54)
--- NOTE | 2017-01-05 11:54 | PDOC PROGRESS REPORT ---
Subjective Progress Note for:: 01/05/17 Subjective:: reason for f/u exam: UTI, AMS, hip fx with gait abnl hospital course: per other's notes - "JOSE ANGEL FINCH is a 71 year old female who returns from [facility] facility on 12/25/2016 after just one night due to worsening confusion leading to combativeness. Her son reports she arrived at [facility] yesterday in good spirits but started to decline as night set in. This morning she is very tangential with random thoughts and pressured speech, she becomes easily agitated at times because she cannot remember the word she is trying to say and lashes out at those around her. Ironically she is able to identify where she is and that she just came back from [facility] but doesn't remember me from yesterday and struggles to remember events surrounding her recent hospitalization. she was just admitted after fall resulting in femoral shaft fx requiring ORIF and intramedullary nailing by Dr Barry. Her PCP is Dr Garcia at [facility]. Eval in the ED suggests a UTI as likely source of her confusion. She had bustamante catheter postop that was only removed yesterday due to her immobility and intermittent confusion. Culture grew E Coli and she is on adequate abx, tolerating rocephin and can likely switch to oral ceph in near future. Her son , Cosmo who appears to be POA, reports that over the last year she has become easily confused with progressive ST memory loss but a formal evaluation and diagnosis of dementia has never been made. He also reports that she very clearly told him previously that she "did not want all those machines they used to keep your Dad alive", meaning she is DNR. 12/29/2016 she is improved but not back to baseline, still confused, easily agitated and tangential in her thinking. She is adamant about not going back to [facility] though. Care coordinators seeking other rehab options, she remains too unsteady on her feet and not fully recovered from her hip repair. 01/02 - Today she is awake, alert and oriented. She has less pain in her operated leg after increasing her oxycodone dose. However, she still c/o considerable pain and requests an even higher dose. She appears very awake, alert, and interactive. 01/03 -Her pain is under satisfactory control with the increase in dosage. She complains of muscle spasms around the operated hip, especially at night, forcing her to sleep in a chair. She remains very weak. She is working with physical therapy. 01/04 - Pain is under satisfactory control. She finally was able to sleep in her bed. She remains weak and has trouble transferring and walking even short distances. Awaiting a bed at the SNF. Case management following." I inherited her care Wednesday, she continues to improve and is still waiting on a bed for ongoing rehab for her hip. she is much more clear mentally than when I left her a week ago. ROS: she has no complaints to me this morning, denies chest pain, palpitations , abd pain, N/V/D. total 10 systems reviewed, remaining systems negative. Physical Exam Vital Signs: Temp Pulse Resp BP Pulse Ox 98.2 F 105 H 14 121/73 93 01/05/17 08:00 01/05/17 08:00 01/05/17 08:00 01/05/17 08:00 01/05/17 08:00 Intake & Output 01/04/17 01/05/17 01/06/17 06:59 06:59 06:59 Intake Total 2325 1597 Output Total 1300 Balance 2325 297 Weight 72.4 kg 75.6 kg General appearance: PRESENT: no acute distress, well-developed, well-nourished Head exam: PRESENT: atraumatic, normocephalic Eye exam: PRESENT: EOMI. ABSENT: scleral icterus Mouth exam: PRESENT: moist, tongue midline Neck exam: PRESENT: full ROM. ABSENT: JVD Respiratory exam: PRESENT: clear to auscultation ta. ABSENT: unlabored Cardiovascular exam: PRESENT: RRR. ABSENT: systolic murmur Pulses: PRESENT: normal carotid pulses, normal radial pulses GI/Abdominal exam: PRESENT: normal bowel sounds, soft. ABSENT: tenderness Neurological exam: PRESENT: alert, awake, oriented to person, oriented to place Psychiatric exam: PRESENT: appropriate affect, normal mood Results Laboratory Results: 01/04/17 03:50 01/04/17 03:50 Assessment & Plan - Diagnosis (1) Acute metabolic encephalopathy Is this a current diagnosis for this admission?: YesPlan: improved; seems to be back to baseline. (2) UTI (urinary tract infection), bacterial Is this a current diagnosis for this admission?: YesPlan: resolved. finished adequate course of abx. (3) Sepsis Qualifiers: Sepsis type: sepsis due to unspecified organism Qualified Code(s): A41.9 - Sepsis, unspecified organism Is this a current diagnosis for this admission?: YesPlan: resolved. (4) Chronic hypoxemic respiratory failure Is this a current diagnosis for this admission?: YesPlan: resolved (5) COPD (chronic obstructive pulmonary disease) Qualifiers: COPD type: chronic bronchitis Chronic bronchitis type: simple Qualified Code(s): J41.0 - Simple chronic bronchitis Is this a current diagnosis for this admission?: YesPlan: stable and back to baseline (6) Chronic back pain Qualifiers: Back pain location: low back pain Back pain laterality: unspecified Sciatica presence: unspecified whether sciatica present Qualified Code( s): M54.5 - Low back pain; G89.29 - Other chronic pain Is this a current diagnosis for this admission?: Yes (7) Intertrochanteric fracture of right femur Qualifiers: Encounter type: initial encounter Fracture type: closed Qualified Code(s): S72.141A - Displaced intertrochanteric fracture of right femur, initial encounter for closed fracture Is this a current diagnosis for this admission?: YesPlan: stable for weight bearing as tolerated and placement when suitable arrangements can be made. - Time Time Spent with patient: 15-24 minutes Anticipated discharge: SNF Within: within 24 hours - Plan Summary Plan Summary: stable for placement when bed available
[2017-01-05] MEDS: ACETAMINOPHEN 325 MG TABLET PO PRN (14:42)
--- NOTE | 2017-01-05 15:04 | PDOC TRANSFER SUMMARY ---
General - Admit/Disc Date/PCP Admission Date/Primary Care Provider: 12/25/16 10:54 THAIS EDUARDO MD Discharge Date: 01/05/17 - Discharge Diagnosis (1) Acute metabolic encephalopathy Is this a current diagnosis for this admission?: YesSummary: resolved. 2/2 UTI with underlying mild dementia (2) UTI (urinary tract infection), bacterial Is this a current diagnosis for this admission?: YesSummary: resolved with adequate course of abx (3) Sepsis Is this a current diagnosis for this admission?: YesSummary: resolved (4) Chronic hypoxemic respiratory failure Is this a current diagnosis for this admission?: YesSummary: resolved (5) COPD (chronic obstructive pulmonary disease) Is this a current diagnosis for this admission?: YesSummary: stable; at baseline (6) Chronic back pain Is this a current diagnosis for this admission?: YesSummary: prn analgesics (7) Intertrochanteric fracture of right femur Is this a current diagnosis for this admission?: YesSummary: s/p intramedullary nailing, weight bearing as tolerated; staple/suture removal per dr barry, ortho - Additional Information Resuscitation Status: Do Not Resuscitate Discharge Diet: As Tolerated Discharge Activity: Slowly Increase Activity, Supervised Activity - weight bearing as tolerated Home Medications: Clopidogrel Bisulfate [Plavix 75 mg Tablet] 75 mg PO DAILY 12/25/16 Gabapentin [Neurontin 100 mg Capsule] 100 mg PO QHS 12/25/16 Omeprazole 20 mg PO DAILY 12/25/16 Venlafaxine HCl ER [Effexor Xr 75 mg Cap.sr] 75 mg PO DAILY 12/25/16 Acetaminophen [Tylenol 325 mg Tablet] 650 mg PO Q4HP PRN tablet 01/05/17 Cyclobenzaprine HCl [Flexeril 10 mg Tablet] 5 mg PO Q12 #10 tablet 01/05/17 Docusate Sodium [Colace 100 mg Capsule] 100 mg PO DAILY capsule 01/05/17 Enoxaparin Sodium [Lovenox Inj 40 mg/0.4 ml Disp.syrin] 40 mg SUBCUT QAM #7 disp.syrin 01/05/17 Ipratropium/Albuterol Sulfate [Duoneb 3 ml Ampul] 3 ml NEB RTQ6HP PRN vial.neb 01/05/17 Magnesium Hydroxide [Milk of Magnesia 30 ml Udcup] 30 ml PO HSP PRN udc Metoprolol Tartrate [Lopressor 25 mg Tablet] 12.5 mg PO Q12 tablet 01/05/17 Nicotine [Nicoderm 21 mg/24 Hr Transderm Patch] 1 each TD DAILY patch.td24 Oxycodone HCl [Oxy-Ir 5 mg Tablet] 15 mg PO Q6HP PRN #10 tablet 01/05/17 History of Present Illness Admission Date/PCP: 12/25/16 10:54 THAIS EDUARDO MD History of Present Illness: JOSE ANGEL FINCH is a 71 year old female who returns from [facility] 12[facility]/2016 after just one night due to worsening confusion leading to combativeness. Her son reports she arrived at [facility] yesterday in good spirits but started to decline as night set in. This morning she is very tangential with random thoughts and pressured speech, she becomes easily agitated at times because she cannot remember the word she is trying to say and lashes out at those around her. Ironically she is able to identify where she is and that she just came back from [facility] but doesn't remember me from yesterday and struggles to remember events surrounding her recent hospitalization. she was just admitted after fall resulting in femoral shaft fx requiring ORIF and intramedullary nailing by Dr Barry. Her PCP is Dr [facility] at [facility]. Hospital Course Hospital Course: Eval in the ED suggests a UTI as likely source of her confusion. She had bustamante catheter postop that was only removed yesterday due to her immobility and intermittent confusion. Culture grew E Coli and she is on adequate abx, tolerating rocephin and can likely switch to oral ceph in near future. Her son , Cosmo who appears to be POA, reports that over the last year she has become easily confused with progressive ST memory loss but a formal evaluation and diagnosis of dementia has never been made. He also reports that she very clearly told him previously that she "did not want all those machines they used to keep your Dad alive", meaning she is DNR. 12/29/2016 she is improved but not back to baseline, still confused, easily agitated and tangential in her thinking. She is adamant about not going back to [facility] though. Care coordinators seeking other rehab options, she remains too unsteady on her feet and not fully recovered from her hip repair. 01/02 - Today she is awake, alert and oriented. She has less pain in her operated leg after increasing her oxycodone dose. However, she still c/o considerable pain and requests an even higher dose. She appears very awake, alert, and interactive. 01/03 -Her pain is under satisfactory control with the increase in dosage. She complains of muscle spasms around the operated hip, especially at night, forcing her to sleep in a chair. She remains very weak. She is working with physical therapy. 01/04 - Pain is under satisfactory control. She finally was able to sleep in her bed. She remains weak and has trouble transferring and walking even short distances. Awaiting a bed at the SNF. Case management following." I inherited her care Wednesday, she continues to improve and is still waiting on a bed for ongoing rehab for her hip. she is much more clear mentally than when I left her a week ago. at this point she still needs ongoing PT for gait stability as she recovers from her hip surgery but is stable for transfer to rehab at this time. Physical Exam Vital Signs: Temp Pulse Resp BP Pulse Ox 97.7 F 76 17 113/62 93 01/05/17 12:17 01/05/17 12:17 01/05/17 12:17 01/05/17 12:17 01/05/17 12:17 Intake & Output 01/04/17 01/05/17 01/06/17 06:59 06:59 06:59 Intake Total 2325 1597 Output Total 1300 Balance 2325 297 Weight 72.4 kg 75.6 kg General appearance: PRESENT: no acute distress, well-developed, well-nourished Eye exam: PRESENT: EOMI. ABSENT: scleral icterus Mouth exam: PRESENT: moist Neck exam: PRESENT: full ROM. ABSENT: tenderness Respiratory exam: PRESENT: clear to auscultation ta. ABSENT: accessory muscle use Cardiovascular exam: ABSENT: diastolic murmur, systolic murmur, tachycardia Pulses: PRESENT: normal carotid pulses, normal radial pulses Vascular exam: PRESENT: normal capillary refill GI/Abdominal exam: PRESENT: normal bowel sounds, soft. ABSENT: tenderness Musculoskeletal exam: PRESENT: ambulatory - with assistance Neurological exam: PRESENT: alert, awake, oriented to person, oriented to place , oriented to situation Psychiatric exam: PRESENT: appropriate affect, normal mood Skin exam: PRESENT: warm, other - sutures still in place, wound edges well approximated but not completely closed as yet Results Laboratory Results: 01/04/17 03:50 01/04/17 03:50 Impressions: Head CT 12/25/16 07:44 IMPRESSION: CHRONIC CHANGES OF ATROPHY AND MICROVASCULAR ISCHEMIA. OLD INFARCT IN THE LEFT FRONTAL LOBE. NO ACUTE PROCESS. Chest X-Ray 12/25/16 11:02 IMPRESSION: CHRONIC INTERSTITIAL CHANGES. POSSIBLE ATELECTASIS OR EARLY INFILTRATE IN THE RIGHT UPPER LOBE. Hip X-Ray 12/29/16 00:00 IMPRESSION: No acute fracture or dislocation. Patient is status post right hip pinning. Transfer Plan - Disposition Transfer Plan: rehab for ongoing PT before returning home to independent living - Time Spent with Patient Time spent with patient: Greater than 30 Minutes Qualifiers PATEINT BEING DISCHARGED WITH ANY OF THE FOLLOWING DIAGNOSIS?: No VTE patient discharged on overlapping Therapy?: Yes
[2017-01-05 16:12] VITALS: BP 116/58
== END 2017-01-05 20:40 | DRG 698 ==
LOC: ER 03:13 → EH 10:30 → UNDOADMIN 10:30 → EH 10:54 → 5 12:03
DX: T83.511A Infection and inflammatory reaction due to indwelling urethral catheter, initial encounter (principal); A41.9 Sepsis, unspecified organism; G93.41 Metabolic encephalopathy; J96.11 Chronic respiratory failure with hypoxia; N39.0 Urinary tract infection, site not specified; J44.9 Chronic obstructive pulmonary disease, unspecified; M54.5 Low back pain; G89.29 Other chronic pain; B96.20 Unspecified Escherichia coli [E. coli] as the cause of diseases classified elsewhere; S72.141D Displaced intertrochanteric fracture of right femur, subsequent encounter for closed fracture with routine healing; W19.XXXD Unspecified fall, subsequent encounter; Y84.6 Urinary catheterization as the cause of abnormal reaction of the patient, or of later complication, without mention of misadventure at the time of the procedure; M19.90 Unspecified osteoarthritis, unspecified site; D64.9 Anemia, unspecified; I10 Essential (primary) hypertension; K21.9 Gastro-esophageal reflux disease without esophagitis; F32.9 Major depressive disorder, single episode, unspecified; F03.90 Unspecified dementia, unspecified severity, without behavioral disturbance, psychotic disturbance, mood disturbance, and anxiety; Z66 Do not resuscitate; Z90.710 Acquired absence of both cervix and uterus; Z90.49 Acquired absence of other specified parts of digestive tract; Z88.0 Allergy status to penicillin; Z99.81 Dependence on supplemental oxygen; Z78.1 Physical restraint status; Z98.890 Other specified postprocedural states
CPT/HCPCS: 36415; 51701; 70450; 71010; 73522; 80048; 81001; 82962; 83735; 84100; 85025; 87040; 87086; 87088; 87186; 96361; 96365; 99285; G8978-GP; G8979-GP; J0696; J1630; J1650; J1956; J2060; J2270; J3475; J7030; J8499

== ENCOUNTER → 2017-12-31 | Outpatient (CLI) | payer MEDICARE ==
[2017-12-31 16:14] LABS: ABSOLUTE BASOPHILS # (AUTO) 0.1 10^3/uL (0.0-0.2); ABSOLUTE EOSINOPHILS # (AUTO) 0.1 10^3/uL (0.0-0.6); ABSOLUTE LYMPHOCYTES (AUTO) 2.2 10^3/uL (0.5-4.7); ABSOLUTE MONOCYTES (AUTO) 0.8 10^3/uL (0.1-1.4); ABSOLUTE NEUT (AUTO) 4.8 10^3/uL (1.7-8.2); BASOPHILS % (AUTO) 0.9 % (0-2); EOSINOPHILS % (AUTO) 1.2 % (0-6); HEMATOCRIT 43.8 % (36.0-47.0); HEMOGLOBIN 14.2 g/dL (12.0-15.5); LYMPHOCYTES % (AUTO) 27.5 % (13-45); MEAN CORPUSCULAR HGB CONC 32.5 g/dL (32.0-36.0); MEAN CORPUSCULAR VOLUME 86 fl (80-97); MONOCYTES % (AUTO) 9.6 % (3-13); PLATELET COUNT 174 10^3/uL (150-450); RED BLOOD COUNT 5.08 10^6/uL (3.72-5.28); RED CELL DISTRIBUTION WIDTH 16.3 % (11.5-14.0); SEGMENTED NEUTROPHILS % (AUTO) 60.8 % (42-78); TOTAL CELLS COUNTED % (AUTO) 100 %
[2017-12-31 16:15] LABS: APPEARANCE,URINE CLEAR; BILIRUBIN,URINE NEGATIVE (NEGATIVE); COLOR,URINE YELLOW; GLUCOSE, URINE NEGATIVE (NEGATIVE); KETONES,URINE NEGATIVE (NEGATIVE); LEUKOCYTE ESTERASE,URINE NEGATIVE (NEGATIVE); NITRITE,URINE NEGATIVE (NEGATIVE); PROTEIN,URINE NEGATIVE (NEGATIVE); URINE SPECIFIC GRAVITY 1.014; UROBILINOGEN,URINE NEGATIVE mg/dL (<2.0)
[2017-12-31 16:30] LABS: ALBUMIN 4.3 g/dL (3.5-5.0); ANION GAP 11 (5-19); BLOOD UREA NITROGEN 11 mg/dL (7-20); CALCIUM 10.4 mg/dL (8.4-10.2); CARBON DIOXIDE 30 mmol/L (22-30); CHLORIDE 102 mmol/L (98-107); GLUCOSE 101 mg/dL (75-110); PHOSPHORUS 4.1 mg/dL (2.5-4.5); POTASSIUM 4.7 mmol/L (3.6-5.0); SODIUM 143.1 mmol/L (137-145)
[2018-01-01 10:37] LABS: CREATININE URINE 81.8 mg/dL (Not Estab.); MICROALBUMIN URINE 22.8 ug/mL (Not Estab.)
== END ==
LOC: OD 14:33
PROVIDERS: ATTEND Internal Medicine Nephrology
DX: N28.9 Disorder of kidney and ureter, unspecified (principal); N13.30 Unspecified hydronephrosis; I10 Essential (primary) hypertension
CPT/HCPCS: 36415; 80048; 81001; 82040; 82043; 82306; 82570; 83970; 84100; 85025

== ENCOUNTER → 2018-04-12 | Outpatient (CLI) | payer MEDICARE ==
[2018-04-12 15:34] LABS: ANION GAP 12 (5-19); BLOOD UREA NITROGEN 8 mg/dL (7-20); CALCIUM 9.9 mg/dL (8.4-10.2); CARBON DIOXIDE 28 mmol/L (22-30); CHLORIDE 104 mmol/L (98-107); GLUCOSE 100 mg/dL (75-110); POTASSIUM 4.4 mmol/L (3.6-5.0); SODIUM 144.2 mmol/L (137-145)
== END ==
LOC: OD 14:32
PROVIDERS: ATTEND Internal Medicine Nephrology
DX: N28.9 Disorder of kidney and ureter, unspecified (principal); E55.9 Vitamin D deficiency, unspecified; N25.81 Secondary hyperparathyroidism of renal origin
CPT/HCPCS: 36415; 80048; 82306; 83970

== ENCOUNTER 2018-10-09 20:48 | Emergency (ER) | payer MEDICARE ==
[2018-10-09] MEDS ORDERED: RINGERS SOLUTION,LACTATED 1,000 ML IV ONE (21:55)
--- NOTE | 2018-10-09 21:57 | ER Document Report ---
ED General - General Chief Complaint: Altered Mental Status Stated Complaint: ALTERED MENTAL STATUS Time Seen by Provider: 10/09/18 21:37 Notes: Patient is a 73-year old female with past history of dementia, hypertension, hyper thyroidism, presents with her sjkwsumc-xx-nqk as well as EMS due to concerns of acting abnormally. The patient is profoundly demented, not able to provide meaningful history. The gublwdbp-me-saq at the bedside does provide the history that she went to check on her iphwew-yv-tox today that she was acting strangely, paranoid, believes cameras were in the room. Was frequently tapping her fingers. She states she was worried because she has had urinary tract infections in the past when she has acted like this although she does have dementia with some abnormal behaviors at baseline. There is been no report of fever, vomiting, headache, chest pain or shortness of breath. History is otherwise limited secondary to the degree of the patient's altered mental status TRAVEL OUTSIDE OF THE [place] IN LAST 30 DAYS: No - Related Data Allergies/Adverse Reactions: Penicillins Allergy (Unknown, Verified 10/09/18 21:09) Rash Past Medical History - General Information source: Relative, Emergency Med Personnel - Social History Smoking Status: Former Smoker Frequency of alcohol use: None Drug Abuse: None Lives with: Family Family History: None, Reviewed & Not Pertinent Patient has suicidal ideation: No Patient has homicidal ideation: No - Past Medical History Cardiac Medical History: Reports: Hx Hypertension Pulmonary Medical History: Reports: Hx COPD, Hx Pneumonia - Admitted to [facility] about 3 months ago for pneumonia. Endocrine Medical History: Reports: Hx Hyperthyroidism Renal/ Medical History: Denies: Hx Peritoneal Dialysis GI Medical History: Reports: Hx Gastroesophageal Reflux Disease Musculoskeletal Medical History: Reports Hx Arthritis Psychiatric Medical History: Reports: Hx Depression Past Surgical History: Reports: Hx Cholecystectomy, Hx Hysterectomy, Hx Ne urologic Surgery - C-SPINE, Hx Orthopedic Surgery - L KNEE - Immunizations Hx Diphtheria, Pertussis, Tetanus Vaccination: Yes Hx Pneumococcal Vaccination: 08/09/11 Review of Systems - Review of Systems -: Yes ROS unobtainable due to patient's medical condition Physical Exam - Vital signs Vitals: Pulse Resp BP Pulse Ox 104 H 25 H 146/94 H 85 L 10/09/18 21:03 10/09/18 21:03 10/09/18 21:03 10/09/18 21:03 Interpretation: Hypertensive, Tachycardic, Hypoxic - On room air, patient does use oxygen at baseline Notes: PHYSICAL EXAMINATION: GENERAL: Somewhat disheveled, elderly but in no acute distress HEAD: Atraumatic, normocephalic. EYES: Pupils equal round and reactive to light, extraocular movements intact, sclera anicteric, conjunctiva are normal. ENT: nares patent, oropharynx clear without exudates. Moderately dry mucous membranes. NECK: Normal range of motion, supple without lymphadenopathy LUNGS: Breath sounds clear to auscultation bilaterally and equal. No wheezes rales or rhonchi. HEART: Regular rate and rhythm without murmurs ABDOMEN: Soft, nontender, normoactive bowel sounds. No guarding, no rebound. No masses appreciated. EXTREMITIES: Normal range of motion, no pitting or edema. No cyanosis. NEUROLOGICAL: No focal neurological deficits. Moves all extremities spontaneously and on command. PSYCH: Alert, oriented only to person SKIN: Warm, Dry, normal turgor, no rashes or lesions noted. Course - Re-evaluation Re-evalutation: 10/09/18 21:56 Patient is a 73-year-old female who presents with confusion, paranoia and abnormal behaviors. Patient herself is not a reliable historian, ymcptfiw-lh-zvu at the bedside reports that she went to check on her today and refill her medications. Last time she had seen her was approximately 1 week ago. States the patient was acting extremely paranoid, believe that there are cameras in the room, had not ate or drank all day and appeared quite dehydrated. She states that the last time she saw her ijyrrp-at-fay like this was some years ago when she was hospitalized for confusion in the setting of a urinary tract infection. On exam the patient is markedly dehydrated, somewhat di sheveled. She speaks, oriented only to person and her thought process is quite disorganized, incoherent. Patient does have a history of hypothyroidism although is not markedly hypertensive or tachycardic and is not febrile to suggest a thyroid storm. Will obtain chest x-ray, standard labs, thyroid studies, cultures, begin IV fluids and reassess the patient. 10/10/18 00:32 Patient laboratories are completely unremarkable. Patient acting more towards baseline. Suspect the picture is more altered mental status in setting of dementia. At this time will discharge with return precautions and follow-up recommendations. Verbal discharge instructions given a the bedside and opportunity for questions given. Medication warnings reviewed. Family is in agreement with this plan and has verbalized understanding of return precautions and the need for primary care follow-up in the next 24-72 hours. - Vital Signs Vital signs: Temp Pulse Resp BP Pulse Ox 97.6 F 104 H 22 H 146/94 H 93 10/09/18 21:08 10/09/18 21:03 10/10/18 00:12 10/09/18 21:03 10/10/18 00:12 - Laboratory Result Diagrams: 10/09/18 22:20 10/09/18 22:20 Laboratory results interpreted by me: 10/09/18 10/09/18 10/09/18 22:20 22:20 22:59 RDW 15.7 H Plt Count 131 L Sodium 147.0 H Chloride 109 H BUN 25 H Calcium 10.8 H AST 37 H Creatine Kinase 613 H Urine Protein 30 H Urine Ketones TRACE H Ur Leukocyte Esterase MODERATE H - Diagnostic Test Radiology reviewed: Image reviewed, Reports reviewed Radiology results interpreted by me: 10/10/18 00:37 Chest x-ray: No acute infiltrate or pneumothorax Discharge - Discharge Clinical Impression: Altered mental status Qualifiers: Altered mental status type: unspecified Qualified Code(s): R41.82 - Altered mental status, unspecified Dementia Qualifiers: Dementia type: unspecified type Dementia behavioral disturbance: with beh avioral disturbance Qualified Code(s): F03.91 - Unspecified dementia with b ehavioral disturbance Condition: Stable Disposition: HOME, SELF-CARE Additional Instructions: Your qkchus-gz-ydj's labs all appear unremarkable today. Her symptoms are likely due to underlying dementia. Please return for any additional concerns he may have including fever, vomiting, worsening change in behavior. Please also return for any other symptoms that are new or concerning to you.
--- NOTE | 2018-10-09 22:29 | RADIOLOGY REPORT (SQ) ---
EXAM DESCRIPTION: XR CHEST 1 VIEW COMPLETED DATE/TME: 10/09/2018 21:39 CLINICAL HISTORY: 73 years, Female, ams Comparison: None FINDINGS: Hypoventilatory changes in both lung bases. No pleural effusion. No pneumothorax. Cardiac and mediastinal silhouette is unremarkable. No acute osseous abnormality. Thoracic spine stimulator is noted. IMPRESSION: No acute findings. No focal lung consolidation.
[2018-10-09 22:37] LABS: VENOUS BLOOD BASE EXCESS 2.8 mmol/L; VENOUS BLOOD HCO3 29.2 mmol/L (20-32); VENOUS BLOOD PCO2 51.5 mmHg (35-63); VENOUS BLOOD PH 7.37 (7.30-7.42)
[2018-10-09 22:43] LABS: ABSOLUTE BASOPHILS # (AUTO) 0.1 10^3/uL (0.0-0.2); ABSOLUTE LYMPHOCYTES (AUTO) 1.5 10^3/uL (0.5-4.7); ABSOLUTE MONOCYTES (AUTO) 0.7 10^3/uL (0.1-1.4); EOSINOPHILS % (AUTO) 0.4 % (0-6); HEMATOCRIT 44.9 % (36.0-47.0); HEMOGLOBIN 14.7 g/dL (12.0-15.5); MEAN CORPUSCULAR HEMOGLOBIN 28.9 pg (27.0-33.4); MEAN CORPUSCULAR HGB CONC 32.7 g/dL (32.0-36.0); MEAN CORPUSCULAR VOLUME 88 fl (80-97); MONOCYTES % (AUTO) 8.9 % (3-13); RED BLOOD COUNT 5.08 10^6/uL (3.72-5.28); RED CELL DISTRIBUTION WIDTH 15.7 % (11.5-14.0); SEGMENTED NEUTROPHILS % (AUTO) 71.7 % (42-78); TOTAL CELLS COUNTED % (AUTO) 100 %; WHITE BLOOD COUNT 8.4 10^3/uL (4.0-10.5)
--- NOTE | 2018-10-09 22:49 | EKG REPORT ---
SEVERITY:- ABNORMAL ECG - SINUS TACHYCARDIA FIRST DEGREE AV BLOCK : Confirmed by: Deep Tello 09-Oct-2018 22:48:44
[2018-10-09 22:58] LABS: ALANINE AMINOTRANSFERASE 25 U/L (9-52); ALBUMIN 4.5 g/dL (3.5-5.0); ALKALINE PHOSPHATASE 72 U/L (38-126); ANION GAP 9 (5-19); ASPARTATE AMINO TRANSFERASE 37 U/L (14-36); BILIRUBIN,DIRECT 0.2 mg/dL (0.0-0.4); BILIRUBIN,TOTAL 0.8 mg/dL (0.2-1.3); BLOOD UREA NITROGEN 25 mg/dL (7-20); CALCIUM 10.8 mg/dL (8.4-10.2); CARBON DIOXIDE 29 mmol/L (22-30); CHLORIDE 109 mmol/L (98-107); CREATINE KINASE 613 U/L (30-135); GLUCOSE 107 mg/dL (75-110); POTASSIUM 3.8 mmol/L (3.6-5.0); TOTAL PROTEIN 7.7 g/dL (6.3-8.2)
[2018-10-09 23:00] LABS: PLATELET COUNT 131 10^3/uL (150-450)
[2018-10-09 23:14] LABS: FREE T3 4.59 pg/mL (2.77-5.27); FREE T4 (FREE THYROXINE) 0.78 ng/dL (0.78-2.19)
[2018-10-09 23:23] LABS: APPEARANCE,URINE CLOUDY; BILIRUBIN,URINE NEGATIVE (NEGATIVE); GLUCOSE, URINE NEGATIVE (NEGATIVE); KETONES,URINE TRACE mg/dL (NEGATIVE); LEUKOCYTE ESTERASE,URINE MODERATE (NEGATIVE); NITRITE,URINE NEGATIVE (NEGATIVE); PROTEIN,URINE 30 mg/dL (NEGATIVE); URINE SPECIFIC GRAVITY 1.024; UROBILINOGEN,URINE NEGATIVE mg/dL (<2.0)
[2018-10-09 23:25] LABS: COLOR,URINE YELLOW
[2018-10-09 23:28] LABS: THYROID STIMULATING HORMONE 4.11 uIU/mL (0.47-4.68)
[2018-10-09 23:44] VITALS: BP 146/94
== END 2018-10-10 01:00 | disposition home or self-care (01) ==
LOC: ER 20:48
DX: F03.91 Unspecified dementia, unspecified severity, with behavioral disturbance (principal); E86.0 Dehydration; I10 Essential (primary) hypertension; J44.9 Chronic obstructive pulmonary disease, unspecified; R09.02 Hypoxemia; Z99.81 Dependence on supplemental oxygen; Z87.440 Personal history of urinary (tract) infections; Z88.0 Allergy status to penicillin
CPT/HCPCS: 36415; 51701; 71045; 80053; 81001; 82550; 82803; 83605; 84439; 84443; 84481; 84484; 85025; 87040; 87086; 93005; 93010; 99285

== ENCOUNTER → 2018-11-21 | Outpatient (CLI) | payer MEDICARE ==
[2018-11-21 12:55] LABS: ANION GAP 8 (5-19); BLOOD UREA NITROGEN 10 mg/dL (7-20); CALCIUM 9.6 mg/dL (8.4-10.2); CARBON DIOXIDE 29 mmol/L (22-30); CHLORIDE 103 mmol/L (98-107); GLUCOSE 88 mg/dL (75-110); POTASSIUM 4.2 mmol/L (3.6-5.0); SODIUM 140.1 mmol/L (137-145)
[2018-11-21 13:00] LABS: APPEARANCE,URINE SLIGHTLY-CLOUDY; BILIRUBIN,URINE NEGATIVE (NEGATIVE); COLOR,URINE YELLOW; GLUCOSE, URINE NEGATIVE (NEGATIVE); KETONES,URINE NEGATIVE (NEGATIVE); LEUKOCYTE ESTERASE,URINE LARGE (NEGATIVE); NITRITE,URINE NEGATIVE (NEGATIVE); PROTEIN,URINE 30 mg/dL (NEGATIVE); URINE SPECIFIC GRAVITY 1.006; UROBILINOGEN,URINE NEGATIVE mg/dL (<2.0)
== END ==
LOC: OD 11:50
PROVIDERS: ATTEND Internal Medicine Nephrology
DX: E21.3 Hyperparathyroidism, unspecified (principal); E55.9 Vitamin D deficiency, unspecified; N13.30 Unspecified hydronephrosis
CPT/HCPCS: 36415; 80048; 81001; 82306; 83970

== ENCOUNTER → 2019-05-31 | Outpatient (CLI) | payer MEDICARE ==
[2019-05-31 13:44] LABS: ANION GAP 11 (5-19); BLOOD UREA NITROGEN 13 mg/dL (7-20); CALCIUM 10.5 mg/dL (8.4-10.2); CARBON DIOXIDE 28 mmol/L (22-30); CHLORIDE 104 mmol/L (98-107); GLUCOSE 120 mg/dL (75-110); POTASSIUM 4.6 mmol/L (3.6-5.0)
[2019-05-31 13:58] LABS: APPEARANCE,URINE CLEAR; BILIRUBIN,URINE NEGATIVE (NEGATIVE); COLOR,URINE STRAW; GLUCOSE, URINE NEGATIVE (NEGATIVE); KETONES,URINE NEGATIVE (NEGATIVE); LEUKOCYTE ESTERASE,URINE NEGATIVE (NEGATIVE); NITRITE,URINE NEGATIVE (NEGATIVE); PROTEIN,URINE NEGATIVE (NEGATIVE); URINE SPECIFIC GRAVITY 1.004; UROBILINOGEN,URINE NEGATIVE mg/dL (<2.0)
== END ==
LOC: OD 13:03
PROVIDERS: ATTEND Internal Medicine Nephrology
DX: E21.3 Hyperparathyroidism, unspecified (principal); I10 Essential (primary) hypertension
CPT/HCPCS: 36415; 80048; 81001; 83970

== ENCOUNTER → 2019-06-22 | Outpatient (CLI) | payer MEDICARE | LOC: OD 13:52 | PROVIDERS: ATTEND Internal Medicine Nephrology | DX: I10 Essential (primary) hypertension (principal); E83.52 Hypercalcemia | CPT/HCPCS: 36415; 82306; 82310 ==